=== PATIENT | female | born 1960 | race African-American/Black ===

== ENCOUNTER 2018-08-10 10:41 | Emergency (ER) | payer OTHER, SELFPAY ==
[2018-08-10 11:29] LABS: Bilirubin Negative (Negative); Blood, Urine Negative (Negative); Clarity CLEAR (Clear); Glucose, Urine (Dipstick) Negative (Negative); Leukocyte Moderate (Negative); Nitrite Negative (Negative); Protein, Urine (Dipstick) Negative (Neg-Trace); Specific Gravity, Urine 1.023 (1.002-1.036)
[2018-08-10 11:36] LABS: Bacteria/HPF Rare-Few HPF (None Seen); Hyaline Casts/LPF 0-3 HYALINE CAST LPF (0-3 Hyaline); Pathc Cast-AUWi Flag 0.29 (0-2.49); WBC/HPF 0-3 HPF (0-3)
[2018-08-10] MEDS ORDERED: cefTRIAXone\\ROCEPHIN 250 MG VIAL ONE (14:21)
[2018-08-10] MEDS ORDERED: Lidocaine 1% (PF) 30 ML VIAL ONE (14:21)
[2018-08-10] MEDS ORDERED: Azithromycin 250 MG TAB ONE (14:21)
[2018-08-10] MEDS ORDERED: Ketorolac Tromethamine 60 MG/2 ML VIAL ONE (14:21)
[2018-08-10] MEDS ORDERED: HYDROcodone/Acetaminophen 5/325 mg Tablet ONE (15:00)
[2018-08-12 23:17] LABS: Chlamydia by PCR Not Detected (NotDetected); GC by PCR Not Detected (NotDetected)
== END 2018-08-10 14:50 | disposition home or self-care (01) ==
LOC: ERS 10:41
DX: N73.9 Female pelvic inflammatory disease, unspecified (principal); I11.0 Hypertensive heart disease with heart failure; I50.9 Heart failure, unspecified; F17.210 Nicotine dependence, cigarettes, uncomplicated
CPT/HCPCS: 81003; 81015; 87480; 87491; 87510; 87591; 87660; 96372; J0696; J1885; J2001

== ENCOUNTER 2018-09-06 12:35 | Observation (INO) | payer OTHER, SELFPAY ==
--- NOTE | 2018-09-06 13:05 | RAD ---
PORTABLE CHEST: HISTORY: Chest pain. COMPARISON: 01/14/2017 study. FINDINGS: Heart size is within normal limits. There are postop sternotomy changes. The lungs are clear of inf iltrates. IMPRESSION: No active intrathoracic disease. POS: [facility]
[2018-09-06] MEDS ORDERED: metroNIDAZOLE 250 MG TAB ONE ×2 (13:15→13:21)
[2018-09-06 13:21] LABS: #Eosinphils 0.4 thou/uL (0.0-0.7); #Lymphocytes 1.7 thou/uL (1.20-3.40); #Monocytes 0.5 thou/uL (0.11-0.59); #Neutrophils 2.8 thou/uL (1.40-6.50); %Basophils 0.9 % (0.0-1.0); %Eosinophils 7.8 % (0.0-10.0); %Lymphocytes 30.5 % (21.0-51.0); %Monocytes 8.9 % (0.0-10.0); %Neutrophils 51.9 % (42.0-75.0); Hemoglobin 14.2 g/dL (12.0-16.0); Mean Corpuscular HGB CONC 31.7 g/dL (32.0-36.0); Mean Corpuscular Hemoglobin 32.8 pg (27.0-31.0); Mean Platelet Volume 6.5 fL (7.4-10.4); Platelet Count 278 thou/uL (130-400); RBC Distribution Width 12.8 % (11.5-14.5); Red Blood Cell (RBC) Count 4.33 mill/uL (4.20-5.40); White Blood Cell (WBC) Count 5.4 thou/uL (4.8-10.8)
[2018-09-06 13:47] LABS: ALT (SGPT) 51 U/L (8-55); AST (SGOT) 32 U/L (5-34); Albumin 3.5 g/dL (3.5-5.0); Alkaline Phosphatase 98 U/L (40-150); Anion Gap 11 mmol/L (10-20); BUN (Urea Nitrogen) 14 mg/dL (9.8-20.1); Bilirubin, Total 0.2 mg/dL (0.2-1.2); CK (CPK) 76 U/L (29-168); Calc. Creatinine Clearance 0 mL/min (70-130); Calcium 9.5 mg/dL (7.8-10.44); Carbon Dioxide 19 mmol/L (22-29); Chloride 110 mmol/L (98-107); Estimated GFR-MDRD 79; Globulin 3.7 g/dL (2.4-3.5); Glucose 90 mg/dL (70-105); Lipase 62 U/L (8-78); Potassium 4.2 mmol/L (3.5-5.1); Protein, Total 7.2 g/dL (6.0-8.3); Sodium 136 mmol/L (136-145)
[2018-09-06 13:48] LABS: CKMB 1.6 ng/mL (0-6.6); Troponin I Less than 0.010 ng/mL (< 0.028)
[2018-09-06] MEDS ORDERED: Nitroglycerin 2% Ointment 1 INCH/1 GM Packet ONE (14:10)
--- NOTE | 2018-09-06 14:24 | RAD ---
3 VIEWS LEFT FOOT: Date: 09/06/18 HISTORY: Pain. FINDINGS: Lisfranc alignment is maintained and the joint spaces are preserved. There is midfoot soft tissue swe lling. There is a nondisplaced fracture with a horizontal orientation involving the distal aspect of the proximal phalanx of the third digit. No interarticular extension. IMPRESSION: Third digit fracture. POS: [facility]
[2018-09-06] MEDS ORDERED: Nicotine 14 MG PATCH TD PRN (15:11)
[2018-09-06] MEDS ORDERED: Nitroglycerin 0.4 MG TAB (25 Tab Bottle) PO PRN (15:11)
[2018-09-06] MEDS ORDERED: Bisacodyl 5 MG TAB PO PRN (15:11)
[2018-09-06] MEDS ORDERED: Senokot S 8.6-50 MG TAB PO PRN (15:11)
--- NOTE | 2018-09-06 15:11 | PDOC.FPRHP ---
- History of Present Illness Chief Complaint: Chest pain History of Present Illness: 58 yo F with PMH of CHF, HTN, seizures, myasthenia gravis, aneurysm, and cocaine abuse presenting for chest pressure for the last 3-4 days. Patient states the pressure is left sided under left breast, radiating in to left neck. Pain is worse with exertion, associated with SOB, cough. Patient says she has been more active lately cleaning her mother's house. She also reports headache, wt gain, palpitations, BLE edema, and bilateral lower leg pain. Pt states that she has not been taking her medications daily because she is "afraid they will run out, and I have no way to get more." She also states that she has been having syncopal episodes (fell in her flower bed, reports LOC). She also made a comment about her last seizure being 2 days ago, reporting "I had a seizure in my sleep." Pt had recent dx of STD (complains of vaginal discharge) and was unable to get medications. She also complained of Left third toe pain from catching her toe on a door 3 wks ago. In the ED, CXR neg, EKG showed bradycardia, L Ft XR showed 3rd Proximal metatarsal fracture. Received ASA 325, flagyl 2 g, and nitrobid paste. - Allergies/Adverse Reactions Allergies Allergy/AdvReac Type Severity Reaction Status Date / Time acetaminophen [From Percocet] Allergy Intermediate Hives Verified 09/06/18 16:08 meperidine HCl [From Demerol] Allergy Intermediate Hives Verified 05/04/14 15:54 morphine Allergy Intermediate Hives Verified 05/04/14 15:54 oxycodone [From Percocet] Allergy Intermediate Hives Verified 09/06/18 16:08 - Home Medications Medication Instructions Recorded Confirmed Type Hydrochlorothiazide 12.5 mg PO QAM 06/30/13 05/01/16 History Simvastatin [Zocor] 20 mg PO HS 06/30/13 05/01/16 History carBAMazepine 200 mg PO BID 06/30/13 05/01/16 History ALButerol Sulfate [Ventolin Neb] 3 ml NEB Q6HR PRN 08/07/15 05/01/16 History Albuterol Sulfate [Proair HFA] 2 puff INH Q4HR PRN 08/07/15 05/01/16 History Aspirin [Ecotrin Regular Strength] 325 mg PO DAILY 05/01/16 05/01/16 History Nortriptyline HCl [Pamelor] 25 mg PO HS 05/01/16 05/01/16 History traZODone 100 mg PO HS 05/01/16 05/01/16 History Budesonide-Formoterol [Symbicort 2 puff INH BID #0 aer 05/02/16 Rx 160-4.5] Levofloxacin [Levaquin] 500 mg PO DAILY 7 Days tab 05/02/16 Rx Pantoprazole [Protonix] 40 mg PO DAILY #0 tab 05/02/16 Rx predniSONE 20 mg PO QAM-WM 7 Days tab 05/02/16 Rx - History PMHx: CHF, recent STI, myasthenia gravis, unknown seizure disorder, GERD, HTN, aneurysm, double vision in Rt eye, "refluxed kidney," anxiety and depression PSHx: hysterectomy, thymectomy (pt states "thyroidectomy" but has mediastinal scar), FHx: IA in father ( of IA), DM in mother Social: smokes 4-5 cigs/day (used to smoke 1-2 packs), alcohol: mixed drink 1/ month; cocaine (used last 1 wk ago) - Review of Systems General: reports: weight/appetite/sleep changes (wt gain). denies: fever/chills Eyes: reports: other (double vision in rt eye) ENT: denies: nasal congestion, rhinorrhea Respiratory: reports: cough, shortness of breath, exercise intolerance. denies : congestion Cardiovascular: reports: chest pain, palpitation, edema, paroxysmal nocturnal dyspnea Gastrointestinal: reports: constipation, abdominal pain. denies: nausea, vomiting, diarrhea Genitourinary: reports: discharge. denies: dysuria Skin: denies: rashes Neurological: reports: syncope, seizure, weakness. denies: numbness Psychological: reports: anxiety, depression - Vital signs BP: [136/73] HR: [64] RR: [24] Tmax: [97.5] Pox: [100]% on [RA] Wt: [98 kg] - Physical Exam Constitutional: NAD, awake, alert and oriented HEENT: normocephalic and atraumatic, PERRLA, EOMI, grossly normal hearing, MMM, oropharynx clear Neck: supple, no LAD Chest: other (diffusely TTP) Heart: RRR, normal S1/S2, no murmurs/rubs/gallops, pulses present, other ( minimal edema bilat) Lungs: no respiratory distress, good air movement, no wheezing Abdomen: soft, bowel sounds present, other (protuberant abdomen, diffusely TTP but no rebound or guarding) Musculoskeletal: normal structure, normal tone Skin: no rash/lesions, good turgor Heme/Lymphatic: no unusual bruising or bleeding Psychiatric: normal mood and affect, intact recent and remote memory, other ( Poor judgmend and insight) FMR H&P: Results - Labs Result Diagrams: 09/06/18 13:10 09/06/18 13:10 Lab results: WBC 5.4 thou/uL (4.8-10.8) 09/06/18 13:10 Hgb 14.2 g/dL (12.0-16.0) 09/06/18 13:10 Hct 44.8 % (36.0-47.0) 09/06/18 13:10 MCV 103.0 fL (78.0-98.0) H 09/06/18 13:10 Plt Count 278 thou/uL (130-400) 09/06/18 13:10 Neutrophils % 51.9 % (42.0-75.0) 09/06/18 13:10 Sodium 136 mmol/L (136-145) 09/06/18 13:10 Potassium 4.2 mmol/L (3.5-5.1) 09/06/18 13:10 Chloride 110 mmol/L (98-107) H 09/06/18 13:10 Carbon Dioxide 19 mmol/L (22-29) L 09/06/18 13:10 BUN 14 mg/dL (9.8-20.1) 09/06/18 13:10 Creatinine 0.89 mg/dL (0.6-1.1) 09/06/18 13:10 Glucose 90 mg/dL (70-105) 09/06/18 13:10 Calcium 9.5 mg/dL (7.8-10.44) 09/06/18 13:10 Total Bilirubin 0.2 mg/dL (0.2-1.2) 09/06/18 13:10 AST 32 U/L (5-34) 09/06/18 13:10 ALT 51 U/L (8-55) 09/06/18 13:10 Alkaline Phosphatase 98 U/L (40-150) 09/06/18 13:10 Creatine Kinase 76 U/L (29-168) 09/06/18 13:10 CK-MB (CK-2) 1.6 ng/mL (0-6.6) 09/06/18 13:10 B-Natriuretic Peptide Less than 10.0 pg/mL (0-100) 09/06/18 13:10 Serum Total Protein 7.2 g/dL (6.0-8.3) 09/06/18 13:10 Albumin 3.5 g/dL (3.5-5.0) 09/06/18 13:10 Lipase 62 U/L (8-78) 09/06/18 13:10 - EKG Interpretation EKG: Sinus kym FMR H&P: A/P - Problem List (1) Chest pain Current Visit: No Status: Acute Code(s): R07.9 - CHEST PAIN, UNSPECIFIED (2) Cocaine abuse Current Visit: No Status: Chronic Code(s): F14.10 - COCAINE ABUSE, UNCOMPLICATED (3) CHF (congestive heart failure) Current Visit: Yes Status: Chronic Code(s): I50.9 - HEART FAILURE, UNSPECIFIED (4) Myasthenia gravis Current Visit: Yes Status: Chronic Code(s): G70.00 - MYASTHENIA GRAVIS WITHOUT (ACUTE) EXACERBATION (5) Seizure disorder Current Visit: Yes Status: Chronic Code(s): G40.909 - EPILEPSY, UNSP, NOT INTRACTABLE, WITHOUT STATUS EPILEPTICUS (6) GERD (gastroesophageal reflux disease) Current Visit: Yes Status: Chronic Code(s): K21.9 - GASTRO-ESOPHAGEAL REFLUX DISEASE WITHOUT ESOPHAGITIS (7) HTN (hypertension) Current Visit: Yes Status: Chronic Code(s): I10 - ESSENTIAL (PRIMARY) HYPERTENSION (8) Anxiety Current Visit: Yes Status: Chronic Code(s): F41.9 - ANXIETY DISORDER, UNSPECIFIED (9) Depression Current Visit: Yes Status: Chronic Code(s): F32.9 - MAJOR DEPRESSIVE DISORDER, SINGLE EPISODE, UNSPECIFIED - Plan 58 yo F presents with atypical chest pain. Atypical chest pain, most likely 2/2 to cocaine abuse vs costochondritis vs CHF exacerbation vs anxiety -Pt has significant TTP of chest; last used cocaine 1 wk ago; reports increasing SOB on exertion and cough but lungs CTA on exam -Most likely not PE as O2 Sat 100% on RA -CXR neg, EKG shows bradycardia -Trop negx1, CKMB wnl -Stress test in AM, NPO @ midnight -Restart home medications -ASA, nitrostat PRN History of Sycope/fall with LOC -headache today -Ct Brain w/o contrast pending -double vision that is not new Concern for hypothyroidism -Pt reports weight gain and palpitations, TSH pending Multi drug abuse -UDS pending -PRN nicotine patch Hepatitis B -not treated, dx at [facility] w/ known and prior elevated LFTs Seizures -restart home carbemazepine Anxiety/depression -restart sertraline Constipation -Senna/doc PRN Toe Fracture, 3 wks ago -Recommend israel taping/hard soled shoe Myasthenia Gravis -s/p thymectomy Ureteral reflux -left sided, fixed by Dr. Castellanos years ago DVT ppx: lovenox Diet: HH, NPO @ midnight Dispo: tomorrow if Stress test is WNL FMR H&P: Upper Level - Pertinent history 58 y/o F with a hx/o cocaine abuse and possible CHF presents with chest pain. Started 4d ago and has been off and on. She was working in the garden and has been sore since then. She also states she passed out working in the garden 4 days ago. History is very unclear. Sharp L sided chest pain that has now resolved in the ED. 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 The ED gave her 2g of Flagyl. She currently denies complaints in the ED bed. Did have a stress test 4yrs ago that was normal and a normal ECHO in 2015 - Pertinent findings LABS: Tropinis and CKMB WNL EKG: Sinus bradycaria at 56bpm UDS: pending - Plan Date/Time: 09/06/18 1511 Andrew Maravilla, have evaluated this patient and agree with findings/plan as outlined by sports intern resident. Pertinent changes/additions are listed here. 1: Atypical Chest pain: Likely MSK in origin as it is reproducible and started after working in the garden. Cardiac enzymes have been negative and will trend. She does have a heart score of 3-4 and will stress test her in the AM as she has not had one in 4 yrs. She admitted to cocaine use, which could also be the cause. 2: L 3rd toe fracture: Confirmed with XR. Will encourage supportive shoes/ protection and israel taping PRN. 3: Possible recent history of syncope: Does have sinus bradycardia on EKG, but also has admitted to using recreational drugs. She may have hit her head which is atraumatic on exam, but will obtain head CT. Will continue to monitor. 4: Trichomoniasis: Treated with Flagyl in ED 5: CHF Reported in history, however an ECHO in 2015 reveals normal heart function. Will consider ECHO during this hospital stay or outpatient. 6: Anxiety/Depression Continue SSRI 7. Seizure history: Continue carbamazapine Attending Addendum - Attending Addendum Date/Time: 09/06/18 5221 I personally evaluated the patient and discussed the management with Dr. Blue I agree with the History, Examination, Assessment and Plan documented above with any addition or exceptions noted below. 58 yo female with PMHX: Myasthenia gravis , SZ D/O Hepatitis B, dyslipidemia, HTN , Tobacco and cocaine use with recent history of activity related substernal CP with radiation to neck with associated shortness of breath no N/V or diaphoresis. Patient describes episode of questionable syncopal spell verse generalized seizure x 1 week ago. Patient has been reducing frequency of her medication in attempt to make them last longer. Prior surgery include Thymectomy, cholecystectomy and left ureteral reflux surgery per patient. Social HX single with current significant other patient with 4 grown male children and recent 2 year incarceration at [facility] patient currenty living with her cousin and attempting to assist her Mother who is a hoarder and helping cleaning up her home. REC admit serial troponin risk factors include HTN ,Tobacco use, dyslipidemia and recent cocaine abuse. Stratify further with stress testing if r/o for ACS.
[2018-09-06] MEDS ORDERED: Enoxaparin Sodium 40 MG/0.4 ML SYRINGE SC SCH (15:45)
--- NOTE | 2018-09-06 15:49 | CT ---
CT BRAIN: HISTORY: Syncope. Fall. Loss of consciousness. FINDINGS: Noncontrast-enhanced CT images of the brain are obtained on 09/06/2018. Comparison is made to previo us exam from 11/29/2015. Noncontrast-enhanced CT images of the brain demonstrate the calvarium to be unremarkable. No evidenc e of intracranial masses, hemorrhages, strokes, or contusions seen. Ventricles are of normal size. No evidence of acute intracranial pathology noted. IMPRESSION: Normal CT brain. POS: [facility]
[2018-09-06 16:41] LABS: Troponin I Less than 0.010 ng/mL (< 0.028)
[2018-09-06 16:42] LABS: Carbamazepine-Tegretol Less than 1.9 ug/mL (4.0-12.0)
[2018-09-06 17:22] LABS: Free T4 (Free Thyroxine) 0.93 ng/dL (0.70-1.48)
[2018-09-06 18:31] VITALS: BMI 40.3
[2018-09-06] MEDS ORDERED: carBAMazepine 200 MG TAB PO SCH (21:30)
[2018-09-06] MEDS: Naproxen 500 MG TAB PO SCH (21:41)
[2018-09-06 21:42] LABS: Amphetamine Not Detected (NotDetected); Barbiturates Screen Not Detected (NotDetected); Benzodiazepine Screen Not Detected (NotDetected); Cocaine Metabolite Screen Detected (NotDetected); Medtox Reader # READER 1; Methadone Not Detected (NotDetected); Methamphetamine Not Detected (NotDetected); Opiate Screen Not Detected (NotDetected); Oxycodone Screen Not Detected (NotDetected); Phencyclidine (PCP) Not Detected (NotDetected); THC/Cannabinoid Screen Not Detected (NotDetected); Tricyclic Screen Not Detected (NotDetected)
[2018-09-06 21:43] LABS: Medtox Control Line Valid? VALID (VALID)
[2018-09-07] MEDS: Naproxen 500 MG TAB PO SCH ×2 (05:55→13:26)
--- NOTE | 2018-09-07 06:32 | PDOC.FM ---
- Subjective Subjective: Pt complains of lower abdominal pain, like cramping "period pains," but pt is s/ p hysterectomy. Pt states she does have dysuria. Some toe pain from fracture, received naproxen overnight. - Objective Vital Signs & Weight: Vital Signs (12 hours) Temp Pulse Resp BP BP Pulse Ox 09/07/18 04:40 98.2 F 62 16 133/69 95 09/06/18 23:18 98.9 F 64 16 111/55 L 90 L Weight Weight 113.353 kg I&O: 09/05/18 09/06/18 09/07/18 06:59 06:59 06:59 Intake Total 600 Output Total 800 Balance -200 Result Diagrams: 09/06/18 13:10 09/06/18 13:10 Phys Exam - Physical Examination Constitutional: NAD Neck: no nodes, no JVD Respiratory: no wheezing, clear to auscultation bilateral Cardiovascular: RRR, no significant murmur Gastrointestinal: soft, positive bowel sounds mod TTP diffusely Musculoskeletal: no edema, pulses present Neurological: moves all 4 limbs Psychiatric: normal affect Dx/Plan (1) Chest pain Code(s): R07.9 - CHEST PAIN, UNSPECIFIED Status: Acute (2) Cocaine abuse Code(s): F14.10 - COCAINE ABUSE, UNCOMPLICATED Status: Chronic (3) CHF (congestive heart failure) Code(s): I50.9 - HEART FAILURE, UNSPECIFIED Status: Chronic (4) Myasthenia gravis Code(s): G70.00 - MYASTHENIA GRAVIS WITHOUT (ACUTE) EXACERBATION Status: Chronic (5) Seizure disorder Code(s): G40.909 - EPILEPSY, UNSP, NOT INTRACTABLE, WITHOUT STATUS EPILEPTICUS Status: Chronic (6) GERD (gastroesophageal reflux disease) Code(s): K21.9 - GASTRO-ESOPHAGEAL REFLUX DISEASE WITHOUT ESOPHAGITIS Status: Chronic (7) HTN (hypertension) Code(s): I10 - ESSENTIAL (PRIMARY) HYPERTENSION Status: Chronic (8) Anxiety Code(s): F41.9 - ANXIETY DISORDER, UNSPECIFIED Status: Chronic (9) Depression Code(s): F32.9 - MAJOR DEPRESSIVE DISORDER, SINGLE EPISODE, UNSPECIFIED Status : Chronic - Plan Plan: 58 yo F presents with atypical chest pain. Atypical chest pain, most likely 2/2 to cocaine abuse vs costochondritis vs CHF exacerbation vs anxiety -Pt has significant TTP of chest; last used cocaine 1 wk ago; reports increasing SOB on exertion and cough but lungs CTA on exam -Most likely not PE as O2 Sat 100% on RA -CXR neg, EKG shows bradycardia -Trop neg x3, CKMB wnl -Stress test today (NPO @ midnight) -Restart home medications -ASA, nitrostat PRN -FLP done, 10 yr risk 8.7%, will start high-intensity statin Dysuria -Will check UA Peaked T waves -Stat EKG pending, will compare to yesterdays -K 4.2 yesterday History of Sycope/fall with LOC -headache today -Ct Brain neg -double vision that is not new Concern for hypothyroidism -Pt reports weight gain and palpitations - TSH low - T3 and T4 wnl Multi drug abuse -UDS + cocaine -PRN nicotine patch Hepatitis B -not treated, dx at [facility] w/ known and prior elevated LFTs Seizures -restart home carbemazepine Anxiety/depression -restart sertraline Constipation -Senna/doc PRN Toe Fracture, 3 wks ago -Recommend israel taping/hard soled shoe Myasthenia Gravis -s/p thymectomy Ureteral reflux -left sided, fixed by Dr. Castellanos years ago DVT ppx: lovenox Diet: HH, NPO @ midnight Dispo: today if Stress test is WNL
[2018-09-07 07:22] LABS: Cardiac Risk 2.8 (Less than 4.5)
[2018-09-07 08:31] VITALS: TEMP 98.3
[2018-09-07] MEDS ORDERED: Potassium Chloride 20 MEQ TAB PO SCH (08:45)
[2018-09-07] MEDS ORDERED: Aspirin 325 MG TAB PO SCH (09:00)
[2018-09-07] MEDS ORDERED: Enoxaparin Sodium 40 MG/0.4 ML SYRINGE SC SCH (09:00)
[2018-09-07] MEDS ORDERED: Hydrochlorothiazide 25 MG TAB PO SCH (09:00)
[2018-09-07] MEDS ORDERED: Multivitamin W/ Minerals 1 TAB PO SCH (09:00)
[2018-09-07] MEDS ORDERED: Regadenoson 0.4 MG/5 ML SYRINGE ONE (11:25)
--- NOTE | 2018-09-07 11:38 | PRG ---
DATE OF SERVICE: 09/07/2018 Ms. Schroeder is a pleasant 58-year-old black female patient with a history of heart failure. She was admitted with some atypical chest pain and is currently undergoing a stress Myoview. She is currentl y not having any chest discomfort. Her admission troponins have been less than 0.01. Her cholesterol was 143, LDL is 77, HDL of 51. BU N is 14, creatinine 0.89 and glucose is 79. We will await the results of her stress Myoview exam. I f positive, we will consult Cardiology for catheterization. If negative, she will be discharged.
[2018-09-07 11:47] LABS: Bilirubin Negative (Negative); Blood, Urine Negative (Negative); Clarity TURBID (Clear); Glucose, Urine (Dipstick) Negative (Negative); Leukocyte Trace (Negative); Nitrite Negative (Negative); Protein, Urine (Dipstick) Negative (Neg-Trace); Specific Gravity, Urine 1.016 (1.002-1.036)
[2018-09-07 11:49] LABS: Bacteria/HPF 2+ HPF (None Seen); Hyaline Casts/LPF 0-3 HYALINE CAST LPF (0-3 Hyaline); Pathc Cast-AUWi Flag 0.87 (0-2.49); RBC/HPF 0-3 HPF (0-3); Squamous Epithelial 21-50 HPF (0-3); Yeast-AUWi Flag 19.7 (0-25.0)
[2018-09-07 12:03] VITALS: BP 147/72
--- NOTE | 2018-09-07 12:21 | NM ---
MYOCARDIAL PERFUSION SCAN: 09/07/2018 PROVIDED CLINICAL HISTORY: Chest pain. RADIOPHARMACEUTICAL: Technetium 99m labeled sestamibi, 32 millicuries, IV stress. Technetium 99m labeled sestamibi, 10.7 millicuries, IV rest. FINDINGS: There is a small area of mildly diminished radiotracer accumulation at the anteroseptum, present at b oth stress and rest. Gated data demonstrate normal myocardial wall motion and thickening with a calc ulated LVEF of 72%. TID is 0.92. IMPRESSION: 1. No scintigraphic evidence for ischemia. 2. Preserved left ventricular ejection fraction. POS: [facility]
[2018-09-07] MEDS ORDERED: Atorvastatin Calcium 40 MG TAB PO SCH (21:00)
--- NOTE | 2018-09-08 02:24 | DIS-2 ---
DATE OF ADMISSION: 09/06/2018 DATE OF DISCHARGE: 09/07/2018 RESIDENT: Munira Adler MD ADMITTING ATTENDING: Nitin Juarez MD DISCHARGE ATTENDING: Wilbert Lopez MD CONSULTS: None. PROCEDURES: 1. Chest x-ray on 09/06/2018, negative. 2. Foot x-ray on 09/06/2018, fracture of the third proximal metatarsal of left foot. 3. Brain CT on 09/06/2018 within normal limits. 4. Stress test on 09/07/2018: Impression: Preserved left ventricular ejection fraction, no scintigraphic evidence for ischemia. PRIMARY DIAGNOSIS: Atypical chest pain most likely secondary to costochondritis versus cocaine abuse. SECONDARY DIAGNOSES: 1. Multidrug abuse. 2. Hepatitis B. 3. Seizures. 4. Anxiety and depression. 5. Constipation. 6. Proximal left third metatarsal fracture. 7. Myasthenia gravis. 8. Ureteral reflux 9. Congestive heart failure. 10. Trichomonal STD. DISCHARGE MEDICATIONS: 1. Atorvastatin 40 mg p.o. at bedtime. 2. Multivitamin 1 tab p.o. daily. 3. Naproxen 250 mg p.o. q.8 hours for pain. 4. Aspirin 81 mg p.o. daily. 5. Carbamazepine 200 mg p.o. b.i.d. 6. Hydrochlorothiazide 25 mg p.o. every morning. 7. Sertraline 50 mg p.o. at bedtime. DISCONTINUED MEDICATIONS: None. HISTORY OF PRESENT ILLNESS AND HOSPITAL COURSE: A 58-year-old female with past medical history of congestive heart failure, hypertension, seizures, myasthenia gravis, aneurysm, and cocaine abuse, presenting for chest pressure for the past 3-4 days. The patient stated the pressure was left-sided under her left breast , radiated into her left neck. Her pain is worse with exertion, associated with shortness of breath and cough. The patient stated that she had been more actively cleaning her mother's home. She also reported headache, weight gain, palpitations, bilateral lower extremity edema, bilateral lower leg pain. The patient stated she had not been taking her medications daily because she was afraid that they would run out. The patient stated that she had have a syncopal episode and fell into her flower bed, reporting loss of consciousness. Her last seizure she reported as two days prior and stated that her seizure was in her sleep. The patient had a recent diagnosis of STD (trichomonas) and was unable to get medications. She also complained of foot pain in her left third toe and catching her toe on a door edge 3 weeks ago. In the ED, the chest x- ray was negative. EKG showed bradycardia. Left foot x-ray showed a third proximal metatarsal fracture. Patient received aspirin, 2 grams of Flagyl and Nitro-Bid paste for chest pain. Chest x-ray and EKG were within normal limits other than her bradycardia. Troponins were negative x3. CK-MB was normal. A stress test was normal. The patient was started on aspirin and a high-intensity statin. The patient complained of dysuria. UA was negative. Patient has a history of syncope with fall and loss of consciousness. CT of brain was negative. Concern for hyperthyroidism. Patient reported weight gain and palpitations. TSH was low. T3 and T4 were within normal limits. We recommend outpatient workup for hyperthyroidism. The patient may need outpatient blood testing for thyroid antibodies. Multidrug abuse: The patient's UDS is positive for cocaine. The patient reported using 5-6 cigarettes per day. The patient has history of hepatitis C that was not treated. The patient was diagnosed at [facility] with known prior elevated LFTs. Patient needs evaluation for outpatient treatment. For seizures, the patient was restarted on her home carbamazepine. Blood Tegretol level showed that the patient was not at goal. The patient reports infrequently taking the carbamazepine. Her toe fracture that happened 3 weeks ago. We recommend israel taping her toes or using hard-soled shoe. DISPOSITION: Stable. DISCHARGE INSTRUCTIONS: 1. Location: Home. 2. Diet: Heart healthy. 3. Activity: As tolerated. 4. Followup: Follow up with PCP within 7 days. The patient was given information to follow up with [facility] to establish care. BENEDICTO
--- NOTE | 2018-09-08 14:11 | EKG ---
Test Reason : CHEST DISCOMFORT Blood Pressure : / mmHG Vent. Rate : 056 BPM Atrial Rate : 056 BPM P-R Int : 166 ms QRS Dur : 096 ms QT Int : 414 ms P-R-T Axes : 055 -08 029 degrees QTc Int : 399 ms Sinus bradycardia Moderate voltage criteria for LVH, may be normal variant Borderline ECG Confirmed by HILARIA MENDEZ DO ([id number]), acquisitions editor KALIA DOMINGO ([id number] on 09/08/2018 2:10:36 PM Referred By: Confirmed By:HILARIA MENDEZ DO
== END 2018-09-07 16:56 | disposition home or self-care (01) ==
LOC: ERS 12:35 → 2SW 14:05
PROVIDERS: ADMIT Family Medicine; ATTEND Family Medicine
DX: R07.89 Other chest pain (principal); I11.0 Hypertensive heart disease with heart failure; I50.9 Heart failure, unspecified; G70.00 Myasthenia gravis without (acute) exacerbation; G40.909 Epilepsy, unspecified, not intractable, without status epilepticus; F41.8 Other specified anxiety disorders; F17.210 Nicotine dependence, cigarettes, uncomplicated; F14.10 Cocaine abuse, uncomplicated; K21.9 Gastro-esophageal reflux disease without esophagitis; R55 Syncope and collapse; B19.10 Unspecified viral hepatitis B without hepatic coma; A59.9 Trichomoniasis, unspecified; S92.592A Other fracture of left lesser toe(s), initial encounter for closed fracture; K59.00 Constipation, unspecified; N13.70 Vesicoureteral-reflux, unspecified; Z79.52 Long term (current) use of systemic steroids; Z79.51 Long term (current) use of inhaled steroids; Z79.82 Long term (current) use of aspirin; Z79.899 Other long term (current) drug therapy; Z88.5 Allergy status to narcotic agent; Z88.8 Allergy status to other drugs, medicaments and biological substances; W22.8XXA Striking against or struck by other objects, initial encounter
CPT/HCPCS: 36415; 70450; 71045; 78452; 80053; 80061; 80156; 80306; 81003; 81015; 82553; 83690; 83880; 84439; 84443; 84481; 84484; 85025; 93005; 93017; 96372; A9500; G0378; J1650; J2785

== ENCOUNTER 2019-09-02 12:21 | Emergency (ER) | payer OTHER ==
[2019-09-02] MEDS ORDERED: Ondansetron ODT 8 MG TAB ONE (12:51)
[2019-09-02 13:13] LABS: #Eosinphils 0.2 thou/uL (0.0-0.7); #Lymphocytes 1.9 thou/uL (1.20-3.40); #Monocytes 0.5 thou/uL (0.11-0.59); #Neutrophils 2.4 thou/uL (1.40-6.50); %Basophils 0.9 % (0.0-1.0); %Eosinophils 4.1 % (0.0-10.0); %Lymphocytes 37.3 % (21.0-51.0); %Monocytes 10.2 % (0.0-10.0); %Neutrophils 47.6 % (42.0-75.0); Hemoglobin 14.4 g/dL (12.0-16.0); Mean Corpuscular HGB CONC 32.9 g/dL (32.0-36.0); Mean Platelet Volume 6.6 fL (7.4-10.4); Platelet Count 272 thou/uL (130-400); RBC Distribution Width 12.5 % (11.5-14.5); Red Blood Cell (RBC) Count 4.25 mill/uL (4.20-5.40)
[2019-09-02 13:20] LABS: PTT 25.8 SEC (22.9-36.1); Prothrombin Time 13.6 SEC (12.0-14.7)
[2019-09-02 13:35] LABS: ALT (SGPT) 82 U/L (8-55); AST (SGOT) 49 U/L (5-34); Albumin 3.5 g/dL (3.5-5.0); Alkaline Phosphatase 110 U/L (40-110); Anion Gap 10 mmol/L (10-20); BUN (Urea Nitrogen) 10 mg/dL (9.8-20.1); Bilirubin, Total 0.4 mg/dL (0.2-1.2); Calc. Creatinine Clearance 0 mL/min (70-130); Calcium 8.9 mg/dL (7.8-10.44); Carbon Dioxide 27 mmol/L (22-29); Chloride 106 mmol/L (98-107); Estimated GFR-MDRD 89; Globulin 3.9 g/dL (2.4-3.5); Glucose 109 mg/dL (70-105); Potassium 3.8 mmol/L (3.5-5.1); Protein, Total 7.4 g/dL (6.0-8.3); Sodium 139 mmol/L (136-145)
== END 2019-09-02 13:54 | disposition home or self-care (01) ==
LOC: ERS 12:21
DX: R11.2 Nausea with vomiting, unspecified (principal); R10.9 Unspecified abdominal pain; Z86.73 Personal history of transient ischemic attack (TIA), and cerebral infarction without residual deficits; K21.9 Gastro-esophageal reflux disease without esophagitis; I11.0 Hypertensive heart disease with heart failure; I50.9 Heart failure, unspecified; F41.9 Anxiety disorder, unspecified; F32.9 Major depressive disorder, single episode, unspecified; F17.210 Nicotine dependence, cigarettes, uncomplicated
CPT/HCPCS: 36415; 80053; 85025; 85610; 85730; 93005

== ENCOUNTER 2020-03-02 16:47 | Emergency (ER) | payer OTHER ==
[~2020-03-02 16:47] MED LIST: Iopamidol-370 76% 500 ML 1 ML ONE
[2020-03-02 17:34] LABS: #Eosinphils 0.2 thou/uL (0.0-0.7); #Lymphocytes 2.2 thou/uL (1.20-3.40); #Monocytes 0.4 thou/uL (0.11-0.59); #Neutrophils 2.5 thou/uL (1.40-6.50); %Basophils 0.4 % (0.0-1.0); %Eosinophils 4.4 % (0.0-10.0); %Lymphocytes 41.1 % (21.0-51.0); %Monocytes 7.5 % (0.0-10.0); %Neutrophils 46.6 % (42.0-75.0); Mean Corpuscular HGB CONC 33.4 g/dL (32.0-36.0); Mean Corpuscular Hemoglobin 34.5 pg (27.0-31.0); Platelet Count 270 thou/uL (130-400); RBC Distribution Width 12.8 % (11.5-14.5); Red Blood Cell (RBC) Count 4.07 mill/uL (4.20-5.40); White Blood Cell (WBC) Count 5.3 thou/uL (4.8-10.8)
--- NOTE | 2020-03-02 17:40 | RAD ---
FRONTAL RADIOGRAPH CHEST: 03/02/20 COMPARISON: 09/06/18. HISTORY: Heart fluttering, syncope, abdominal pain. FINDINGS: Stable midline sternotomy wires and mediastinal clips. Stable mild increased linear interstitial dens ity. No pneumothorax, pleural fluid, focal consolidation, or alveolar edema. IMPRESSION: Stable appearance of the chest - no focal consolidation or alveolar edema. POS: [facility]
[2020-03-02 17:53] LABS: Bilirubin Negative (Negative); Blood, Urine Negative (Negative); Clarity Clear (Clear); Glucose, Urine (Dipstick) Normal (Negative); Leukocyte Negative Leu/uL (Negative); Nitrite Negative (Negative); Protein, Urine (Dipstick) Negative (Neg-Trace); Urobilinogen 3 mg/dL (Less than 2)
[2020-03-02 18:37] LABS: Albumin 3.1 g/dL (3.5-5.0)
[2020-03-02 18:39] LABS: Chloride 109 mmol/L (98-107); Potassium 4.1 mmol/L (3.5-5.1); Sodium 144 mmol/L (136-145)
[2020-03-02 18:40] LABS: Globulin 3.2 g/dL (2.4-3.5); Glucose 94 mg/dL (70-105); Protein, Total 6.3 g/dL (6.0-8.3)
[2020-03-02 18:41] LABS: Anion Gap 9 mmol/L (10-20); Carbon Dioxide 30 mmol/L (22-29)
[2020-03-02 18:42] LABS: Bilirubin, Total Less than 0.2 mg/dL (0.2-1.2)
[2020-03-02 18:43] LABS: Alkaline Phosphatase 96 U/L (40-110)
[2020-03-02 18:44] LABS: BUN (Urea Nitrogen) 13 mg/dL (9.8-20.1); Calc. Creatinine Clearance 0 mL/min (70-130); Estimated GFR-MDRD Greater than 90
[2020-03-02 18:45] LABS: AST (SGOT) 47 U/L (5-34)
[2020-03-02 18:46] LABS: ALT (SGPT) 71 U/L (8-55); CK (CPK) 65 U/L (29-168)
--- NOTE | 2020-03-02 19:22 | CT ---
CT ABDOMEN AND PELVIS WITH IV CONTRAST: 03/02/20 INDICATIONS: Abdominal pain. FINDINGS: Lung bases clear. Liver, spleen and pancreas unremarkable. Adrenal glands and kidneys unremarkable. Small bowel loops normal. Appendix not identified. Colon unremarkable. No mass or adenopathy. Images through the pelvis show evidence of hysterectomy. Urinary bladder unremarkable. IMPRESSION: No acute process identified. POS: [facility]
== END 2020-03-02 19:35 | disposition left against medical advice (07) ==
LOC: ERS 16:47
DX: R06.02 Shortness of breath (principal); R00.1 Bradycardia, unspecified; R55 Syncope and collapse; I11.0 Hypertensive heart disease with heart failure; I50.9 Heart failure, unspecified; K21.9 Gastro-esophageal reflux disease without esophagitis; J44.9 Chronic obstructive pulmonary disease, unspecified; J45.909 Unspecified asthma, uncomplicated; F41.9 Anxiety disorder, unspecified; F32.9 Major depressive disorder, single episode, unspecified; F17.210 Nicotine dependence, cigarettes, uncomplicated; Z79.899 Other long term (current) drug therapy; Z86.73 Personal history of transient ischemic attack (TIA), and cerebral infarction without residual deficits
CPT/HCPCS: 36415; 71045; 74177; 80053; 81003; 82550; 83880; 84484; 85025; 87081; 87430; 87635; 87804; 93005; U0002

== ENCOUNTER 2020-03-03 11:09 | Inpatient (IN) | payer OTHER ==
[2020-03-03 12:11] LABS: #Eosinphils 0.2 thou/uL (0.0-0.7); #Lymphocytes 1.7 thou/uL (1.20-3.40); #Monocytes 0.3 thou/uL (0.11-0.59); #Neutrophils 2.8 thou/uL (1.40-6.50); %Basophils 0.9 % (0.0-1.0); %Eosinophils 3.9 % (0.0-10.0); %Lymphocytes 32.8 % (21.0-51.0); %Monocytes 6.1 % (0.0-10.0); %Neutrophils 56.4 % (42.0-75.0); Hemoglobin 14.5 g/dL (12.0-16.0); Mean Corpuscular HGB CONC 33.7 g/dL (32.0-36.0); Mean Platelet Volume 6.8 fL (7.4-10.4); Platelet Count 273 thou/uL (130-400); Red Blood Cell (RBC) Count 4.16 mill/uL (4.20-5.40)
[2020-03-03 12:18] LABS: ALT (SGPT) 84 U/L (8-55); AST (SGOT) 60 U/L (5-34); Albumin 3.5 g/dL (3.5-5.0); Alkaline Phosphatase 104 U/L (40-110); Anion Gap 10 mmol/L (10-20); BUN (Urea Nitrogen) 12 mg/dL (9.8-20.1); Bilirubin, Total 0.2 mg/dL (0.2-1.2); Calc. Creatinine Clearance 0 mL/min (70-130); Carbon Dioxide 29 mmol/L (22-29); Chloride 109 mmol/L (98-107); Estimated GFR-MDRD Greater than 90; Globulin 3.3 g/dL (2.4-3.5); Glucose 110 mg/dL (70-105); Potassium 4.6 mmol/L (3.5-5.1); Protein, Total 6.8 g/dL (6.0-8.3); Sodium 143 mmol/L (136-145)
--- NOTE | 2020-03-03 12:34 | RAD ---
FRONTAL RADIOGRAPH CHEST: 03/03/2020 HISTORY: Bradycardia. Syncope. COMPARISON: 03/02/2020 FINDINGS: Midline sternotomy wires and mediastinal clips are stable. Stable heart and mediastinal contours. No pneumothorax or pleural fluid. No focal consolidation or alveolar edema. Stable mild pulmonary hyperi nflation with mild increased linear interstitial density. IMPRESSION: Stable appearance of the chest. No acute findings. POS: [facility]
--- NOTE | 2020-03-03 13:08 | PDOC.FPRHP ---
- History of Present Illness Chief Complaint: Syncope History of Present Illness: Pt is a 59yo F with PMH of HTN, Substance abuse, tobacco use presents for recurrent syncope from home. Seen in Ed 03/02 for syncope x2 and recommended inpatient stay for symptomatic bradycardia, however pt declined and went home AMA. Today again presents with syncope episode x2. She began to feel lightheaded about 4 days ago and has had several syncopal episodes since this time. She reports prior to that only having one syncopal episode 1 year back during intercourse. She also endorses KIM, orthopnea, and now having dyspnea at rest. For the last month or so she has been having palpitations that come and go mostly with anxiety-describing them as panic attacks. She denies chest pain of any sort. She reports previous hx of CHF although I see no prior echo demonstrating this. 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 She also carries a diagnosis of COPD and reports chronic cough for >1 year that is unchanged. She denies fever, rhinorrhea, congestion, recent travel, or ill contacts. She does however endorse RUQ abd pain since a couple days ago that is not associated with food intake. She had a CTabd/pelvis yesterday in ED that was negative. Denies n/v/d, reports some constipation, Last BM yesterday-firm and hard. She does have hx of seizure DO, describing possibly Absence Seizures that mainly happen when she is sleeping. She reports recent episodes do not feel similar at all. Denies recent seizure hx. Of note, when evaluated yesterday, there was some concern for COVID-19 with recent SOB, so she was tested and have not yet resulted. - Allergies/Adverse Reactions Allergies Allergy/AdvReac Type Severity Reaction Status Date / Time meperidine HCl [From Demerol] Allergy Intermediate Hives Verified 03/03/20 17:02 morphine Allergy Intermediate Hives Verified 03/03/20 17:02 oxycodone Allergy Intermediate Hives Verified 03/03/20 17:02 - Home Medications Medication Instructions Recorded Confirmed Type Aspirin [Aspir-Low] 81 mg PO DAILY #14 tablet. 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 PCP: Dr. Pike [facility] - Review of Systems General: denies: fever/chills, weight/appetite/sleep changes, night sweats, fatigue Eyes: denies: vision changes ENT: denies: nasal congestion, rhinorrhea Respiratory: reports: cough, shortness of breath, exercise intolerance. denies : congestion Cardiovascular: reports: palpitation, edema, orthopnea. denies: chest pain, paroxysmal nocturnal dyspnea Gastrointestinal: reports: constipation, abdominal pain. denies: nausea, vomiting, diarrhea, GI bleeding Genitourinary: denies: incontinence, dysuria Skin: denies: rashes, lesions Musculoskeletal: denies: pain, tenderness, stiffness, swelling Neurological: denies: numbness, syncope, seizure, weakness Psychological: reports: anxiety. denies: depression - Vital signs BP: 137/76 HR: 61 (goes down into the 30's at the lowest in the room on the tele monitor) RR: 18 Tmax: 98.1 Pox: 98% on RA Wt: 107 kg - Physical Exam Constitutional: NAD, awake, alert and oriented, well developed HEENT: normocephalic and atraumatic, PERRLA, EOMI, grossly normal hearing, MMM Neck: no LAD, no bruits Chest: no-tender to palpation, no lesions -Heart: Difficult to hear d/t significant wheezing, bradycardic, no appreciable murmurs heard. Lungs: no respiratory distress, good air movement -Lungs: Wheezing throughout, mostly at b/l lower lung cramer. Less appreciable than anterior auscultation. Abdomen: soft, bowel sounds present, no masses/distention, no hernias -Abdomen: Some ttp along RUQ, negative murphys, no rebound or guarding Musculoskeletal: normal structure, normal tone Neurological: no focal deficit, normal sensation Skin: no rash/lesions, capillary refill <2 seconds Heme/Lymphatic: no unusual bruising or bleeding Psychiatric: normal mood and affect FMR H&P: Results - Labs Result Diagrams: 03/03/20 11:34 03/03/20 11:34 Lab results: WBC 5.0 thou/uL (4.8-10.8) 03/03/20 11:34 Hgb 14.5 g/dL (12.0-16.0) 03/03/20 11:34 Hct 43.2 % (36.0-47.0) 03/03/20 11:34 MCV 104.0 fL (78.0-98.0) H 03/03/20 11:34 Plt Count 273 thou/uL (130-400) 03/03/20 11:34 Neutrophils % 56.4 % (42.0-75.0) 03/03/20 11:34 Sodium 143 mmol/L (136-145) 03/03/20 11:34 Potassium 4.6 mmol/L (3.5-5.1) 03/03/20 11:34 Chloride 109 mmol/L (98-107) H 03/03/20 11:34 Carbon Dioxide 29 mmol/L (22-29) 03/03/20 11:34 BUN 12 mg/dL (9.8-20.1) 03/03/20 11:34 Creatinine 0.79 mg/dL (0.6-1.1) 03/03/20 11:34 Glucose 110 mg/dL (70-105) H 03/03/20 11:34 Calcium 9.0 mg/dL (7.8-10.44) 03/03/20 11:34 Total Bilirubin 0.2 mg/dL (0.2-1.2) 03/03/20 11:34 AST 60 U/L (5-34) H 03/03/20 11:34 ALT 84 U/L (8-55) H 03/03/20 11:34 Alkaline Phosphatase 104 U/L (40-110) 03/03/20 11:34 Serum Total Protein 6.8 g/dL (6.0-8.3) 03/03/20 11:34 Albumin 3.5 g/dL (3.5-5.0) 03/03/20 11:34 - EKG Interpretation EKG: Sinus bradycardia at rate of 54. T wave inversion in lead V2, otherwise no ST changes - Radiology Interpretation CT scan - abdomen Status: image reviewed by me (No acute findings), report reviewed by me FMR H&P: A/P - Problem List (1) Symptomatic bradycardia Current Visit: Yes Status: Acute Code(s): R00.1 - BRADYCARDIA, UNSPECIFIED (2) Syncope Current Visit: Yes Status: Acute Code(s): R55 - SYNCOPE AND COLLAPSE (3) Anxiety Current Visit: No Status: Chronic Code(s): F41.9 - ANXIETY DISORDER, UNSPECIFIED (4) CHF (congestive heart failure) Current Visit: No Status: Chronic Code(s): I50.9 - HEART FAILURE, UNSPECIFIED (5) Cocaine abuse Current Visit: No Status: Chronic Code(s): F14.10 - COCAINE ABUSE, UNCOMPLICATED (6) Depression Current Visit: No Status: Chronic Code(s): F32.9 - MAJOR DEPRESSIVE DISORDER , SINGLE EPISODE, UNSPECIFIED (7) HTN (hypertension) Current Visit: No Status: Chronic Code(s): I10 - ESSENTIAL (PRIMARY) HYPERTENSION (8) Seizure disorder Current Visit: No Status: Chronic Code(s): G40.909 - EPILEPSY, UNSP, NOT INTRACTABLE, WITHOUT STATUS EPILEPTICUS (9) Constipation Current Visit: Yes Status: Acute Code(s): K59.00 - CONSTIPATION, UNSPECIFIED - Plan Syncope Likely 2/2 Symptomatic Bradycardia: -admit to tele -r/o other causes- TSH, Mg, Phos pending -echo pending, last echo here 2014 wnl -EKG with sinus bradycardia, V2 T wave inversion only, hx of KIM progressing to dyspnea at rest, concerning for CAD -initial troponin wnl, trend x3 -consult cardiology, appreciate recs Mild Transaminitis and RUQ Abd Pain: -CTabd yesterday negative -s/p cholecystectomy years ago -RUQ US pending -Hepatitis studies pending Constipation: -Colace scheduled -Dulcolax prn PUI COVID-19: -droplet precautions -COVID pending, swabbed /10 Hx of COPD: -albuterol inhaler prn HTN: -BP at goal at this time. Continue HCTZ and VS q4h. Myasthenia Gravis s/p Thymectomy: -aware Seizure DO: -no recent seizures -continue carbamazepine. Cocaine Abuse: -UDS pending -SDS pending Tobacco Abuse: -nicotine patch prn DVT PPx: Lovenox GI PPx: Famotidine Code sTatus: Full Dispo: Stable, LOS likely > 48h. FMR H&P: Upper Level - Plan Date/Time: 03/03/20 1302 I, [], have evaluated this patient and agree with findings/plan as outlined by internet database specialist resident. Pertinent changes/additions are listed here.
[2020-03-03 15:22] LABS: Troponin I Less than 0.010 ng/mL (< 0.028)
[2020-03-03 16:23] VITALS: BMI 38.4
[2020-03-03] MEDS ORDERED: Nicotine 14 MG PATCH TD PRN (16:30)
[2020-03-03] MEDS ORDERED: Senokot S 8.6-50 MG TAB PO PRN (16:30)
[2020-03-03 16:58] LABS: Alcohol Less than 10 mg/dL (Less than 10); Magnesium 1.8 mg/dL (1.6-2.6); Phosphorus 3.4 mg/dL (2.3-4.7)
[2020-03-03] MEDS ORDERED: PROVENTIL INHALER 6.7 G (200 INHALATIONS) INH PRN (19:16)
[2020-03-03] MEDS ORDERED: Albuterol 200 PUFF (6.7GM INHALER) INH PRN (19:30)
--- NOTE | 2020-03-03 20:03 | CON ---
DATE OF CONSULTATION: HISTORY: Sterling Schroeder is a 59-year-old black female with multiple medical problems, who presented yesterday to the emergency room complaining of 2 episodes of syncope. It was recommended she be admitted for further evaluation. However, she signed out AMA. She now returns again today with 2 more episodes. Of these episodes, in all but one, she was sitting in a chair and apparently just slumped over and was unresponsive for 1 to 2 seconds. Another episode, she stated that her found her on the kitchen floor. She does not remember falling. She denies any chest discomfort. She has chronic cough and shortness of breath from her COPD and it has been elected to have her be a COVID rule out. She has been admitted multiple times for chest discomfort and in May 2015, underwent Cardiolite testing, which was normal. Also in July 2015, she presented with right-sided weakness for which she has had multiple admissions and evaluations in the past. She did receive tPA during that admission. She also has a Rathke's cyst. She has cocaine abuse. PAST MEDICAL HISTORY: Cocaine abuse; history of seizure disorder, on Tegretol In the past, Dr. Samayoa stated that she may have pseudoseizures. History of myasthenia gravis, status post thymectomy, on no medications; hypertension; anxiety; depression, hypercholesterolemia. PAST SURGICAL HISTORY: Hysterectomy, thymectomy (status post sternotomy), cholecystectomy. MEDICATIONS: 1. Albuterol inhaler p.r.n. 2. Hydrochlorothiazide 25 q.a.m. 3. Atorvastatin 40 q.h.s. 4. Aspirin 81 daily. 5. Tegretol 200 mg b.i.d. ALLERGIES: MORPHINE, OXYCODONE, AND DEMEROL CAUSE RASHES. SOCIAL HISTORY: She continues to smoke 5 to 6 cigarettes per day. She is a cocaine abuser. She occasionally drinks alcohol. REVIEW OF SYSTEMS: 10-point review of systems is otherwise unremarkable. PHYSICAL EXAMINATION: VITAL SIGNS: Blood pressure 174/74, pulse of 54. She did have one episode in the emergency room where she was bradycardic with heart rate in the upper 30s, but asymptomatic. HEENT: Somewhat dysconjugate gaze with the right eye. CHEST: Clear. CARDIAC: S1 and S2 normal without any S3, S4, or murmurs. ABDOMEN: Normal bowel sounds without tenderness organomegaly. EXTREMITIES: Reveal trace pretibial edema. NEUROLOGIC: Grossly intact. SKIN: Warm and dry. LABORATORY DATA: EKG revealed sinus bradycardia with sinus arrhythmia with rate of 54 per minute, left ventricular hypertrophy, poor R wave progression. Hemoglobin 14.5, hematocrit 43.2, white count 5000, platelets 273,000. Sodium 143, potassium 4.6, chloride 109, carbon dioxide 29, BUN 12, creatinine 0.79. Troponin I is normal. AST 60, ALT 84. TSH is low at 0.2442 (her TSH had been low in the past on evaluation of pituitary enzymes). Chest x-ray revealed previous sternotomy, but no acute changes. IMPRESSION: 1. Multiple episodes of syncope. The patient has documented a heart rate in the upper 30s without symptoms in the emergency room. Certainly, she may have other more significant bradycardia or sinus pauses that lead to her episodes of syncope; however, this is not documented at present. She will continue to be monitored for any significant arrhythmias. It would be somewhat unusual for someone in her age group to require pacemaker. 2. History of seizure disorders and in the past has been labeled possible pseudoseizure by Dr. Samayoa. In the past, her Tegretol level has been undetectable and this will be checked in the morning. Certainly, this may also contribute to her syncopal episodes. 3. Smoker with chronic obstructive pulmonary disease. She denies that she has coughing episodes at the time that she has her syncope. 4. Status post thymectomy from myasthenia gravis. 5. History of cerebrovascular accident in 2015, treated with tPA. 6. Anxiety. 7. Hypertension. 8. Cocaine abuse. 9. Low TSH level. PLAN: The patient continue to be monitored. Once COVID has been ruled out, she will undergo echocardiography. Tegretol level will be obtained. Also, free T4 and free T3 will be obtained. Urine drug screen is pending. Job ID: [id number] MTDD
[2020-03-03] MEDS: Atorvastatin Calcium 40 MG TAB PO SCH (20:48)
[2020-03-03] MEDS: hydrOXYzine 25 MG TAB PO PRN (20:48)
[2020-03-03] MEDS: Docusate 100 MG CAP PO SCH (20:48)
[2020-03-03] MEDS: Famotidine 20 MG TAB PO SCH (20:48)
[2020-03-03 21:06] LABS: Amphetamine Not Detected (NotDetected); Barbiturates Screen Not Detected (NotDetected); Benzodiazepine Screen Not Detected (NotDetected); Cocaine Metabolite Screen Detected (NotDetected); Medtox Control Line Valid? VALID (VALID); Medtox Reader # READER 4; Methadone Not Detected (NotDetected); Methamphetamine Not Detected (NotDetected); Opiate Screen Not Detected (NotDetected); Oxycodone Screen Not Detected (NotDetected); Phencyclidine (PCP) Not Detected (NotDetected); THC/Cannabinoid Screen Not Detected (NotDetected); Tricyclic Screen Not Detected (NotDetected)
[2020-03-03 23:43] LABS: HBCM Index 0.47 S/CO (0-0.79); Hep B Surf AB Non-Reactive (NonReactive); Hep C IgG Ab Non-Reactive (NonReactive); Hep C Index 0.06 S/CO (0-0.79); Hepatitis B Core IgM Abs Non-Reactive (NonReactive)
[2020-03-04 00:48] LABS: Hep B Core Total Ab Reactive (NonReactive)
[2020-03-04 00:50] LABS: Hep B Core Total Index 11.77 S/CO (0-0.79)
[2020-03-04 01:06] LABS: HBSAg Index 2757.72 S/CO (0-0.99)
[2020-03-04 01:08] LABS: Hep B Surf Ag Reflx Confirmation S/CO (NonReactive)
[2020-03-04] MEDS ORDERED: Acetaminophen 325 MG TAB PO SCH (04:45)
[2020-03-04 04:50] LABS: #Eosinphils 0.2 thou/uL (0.0-0.7); #Lymphocytes 2.1 thou/uL (1.20-3.40); #Monocytes 0.4 thou/uL (0.11-0.59); #Neutrophils 2.3 thou/uL (1.40-6.50); %Basophils 0.9 % (0.0-1.0); %Eosinophils 4.3 % (0.0-10.0); %Lymphocytes 42.1 % (21.0-51.0); %Monocytes 8.2 % (0.0-10.0); %Neutrophils 44.6 % (42.0-75.0); Hemoglobin 14.5 g/dL (12.0-16.0); Mean Corpuscular HGB CONC 34.8 g/dL (32.0-36.0); Mean Corpuscular Hemoglobin 36.1 pg (27.0-31.0); Mean Platelet Volume 6.5 fL (7.4-10.4); Platelet Count 257 thou/uL (130-400); Red Blood Cell (RBC) Count 4.01 mill/uL (4.20-5.40); White Blood Cell (WBC) Count 5.1 thou/uL (4.8-10.8)
[2020-03-04 05:15] LABS: ALT (SGPT) 82 U/L (8-55); AST (SGOT) 56 U/L (5-34); Albumin 3.2 g/dL (3.5-5.0); Alkaline Phosphatase 98 U/L (40-110); Anion Gap 9 mmol/L (10-20); BUN (Urea Nitrogen) 12 mg/dL (9.8-20.1); Bilirubin, Total 0.2 mg/dL (0.2-1.2); Calc. Creatinine Clearance 147 mL/min (70-130); Calcium 8.9 mg/dL (7.8-10.44); Carbon Dioxide 25 mmol/L (22-29); Chloride 109 mmol/L (98-107); Estimated GFR-MDRD Greater than 90; Globulin 3.3 g/dL (2.4-3.5); Glucose 140 mg/dL (70-105); Potassium 4.1 mmol/L (3.5-5.1); Protein, Total 6.5 g/dL (6.0-8.3); Sodium 139 mmol/L (136-145)
[2020-03-04 05:32] LABS: Free T4 (Free Thyroxine) 0.7 ng/dL (0.70-1.48)
[2020-03-04] MEDS: Polyethylene Glycol 3350 17 GM Packet PO SCH (08:39)
[2020-03-04] MEDS: Docusate 100 MG CAP PO SCH ×2 (08:39→19:01)
[2020-03-04] MEDS: Famotidine 20 MG TAB PO SCH (08:39)
[2020-03-04] MEDS: carBAMazepine 200 MG TAB PO SCH ×2 (08:39→16:47)
[2020-03-04] MEDS: Aspirin 81 mg Enteric Coated Tablet PO SCH (08:39)
[2020-03-04] MEDS ORDERED: Enoxaparin Sodium 40 MG/0.4 ML SYRINGE SC SCH (09:00)
[2020-03-04] MEDS ORDERED: Hydrochlorothiazide 25 MG TAB PO SCH (09:00)
--- NOTE | 2020-03-04 09:54 | PDOC.FM ---
- Subjective Subjective: resting comfortably, complains of intermittent abd pain. no other complaints at this time. - Objective Vital Signs & Weight: Vital Signs (12 hours) Temp Pulse Resp BP Pulse Ox 03/04/20 08:37 96.8 F L 43 L 16 126/69 99 03/04/20 03:54 97.0 F L 61 18 122/74 99 Weight Weight 108.046 kg I&O: 03/03/20 03/04/20 03/05/20 06:59 06:59 06:59 Intake Total 560 Balance 560 Result Diagrams: 03/04/20 04:35 03/04/20 04:35 Phys Exam - Physical Examination Constitutional: NAD HEENT: moist MMs, sclera anicteric Neck: supple, full ROM Respiratory: no wheezing, clear to auscultation bilateral Cardiovascular: no significant murmur HR 60 on exam Gastrointestinal: soft, positive bowel sounds mild lower quadrant ttp Musculoskeletal: no edema, pulses present Neurological: normal sensation, moves all 4 limbs Psychiatric: normal affect, A&O x 3 Skin: no rash, normal turgor Dx/Plan (1) Symptomatic bradycardia Code(s): R00.1 - BRADYCARDIA, UNSPECIFIED Status: Acute (2) Constipation Code(s): K59.00 - CONSTIPATION, UNSPECIFIED Status: Acute (3) Syncope Code(s): R55 - SYNCOPE AND COLLAPSE Status: Acute (4) HTN (hypertension) Code(s): I10 - ESSENTIAL (PRIMARY) HYPERTENSION Status: Chronic (5) Myasthenia gravis Code(s): G70.00 - MYASTHENIA GRAVIS WITHOUT (ACUTE) EXACERBATION Status: Chronic (6) Seizure disorder Code(s): G40.909 - EPILEPSY, UNSP, NOT INTRACTABLE, WITHOUT STATUS EPILEPTICUS Status: Chronic - Plan Plan: Syncope Likely 2/2 Symptomatic Bradycardia: A- Pt stable but still having bradycardia on telemetry. Mg/phos/TSH are wnl. echo pending, last echo here 2014 wnl. EKG with sinus bradycardia, V2 T wave inversion only, hx of KIM progressing to dyspnea at rest, concerning for CAD. Cards consulted, appreciate recs. ECHO halted 2/2 covid PUI status P- monitor on tele -f/u cards recs -f/u ECHO Mild Transaminitis and RUQ Abd Pain: A- Positive HepB labs, confirmatory labs pernding. CTabd yesterday negative. s/ p cholecystectomy years ago P- RUQ US pending, likely to be done after COVID19 completed and negative -f/u on confirmatory hepatitis B labwork -possible ID consult once this results -ibuprofen for abdominal pain PUI COVID-19: A- stable respiratory status, no current Sx. P- droplet precautions -COVID pending, swabbed 03/02 Constipation: -Colace scheduled, Dulcolax prn Hx of COPD: -albuterol inhaler prn HTN: -home meds Myasthenia Gravis s/p Thymectomy: -aware Seizure DO: -no recent seizures. continue carbamazepine. -will get carbamazepine Cocaine Abuse: -MD aware, advised to quit Tobacco Abuse: -nicotine patch prn DVT PPx: Lovenox GI PPx: protonix Code status: Full
[2020-03-04] MEDS ORDERED: Ibuprofen 600 MG TAB PO PRN (09:55)
[2020-03-04] MEDS: Atorvastatin Calcium 40 MG TAB PO SCH (19:01)
[2020-03-04] MEDS: hydrOXYzine 25 MG TAB PO PRN (19:07)
[2020-03-05 05:01] LABS: #Eosinphils 0.2 thou/uL (0.0-0.7); #Lymphocytes 1.7 thou/uL (1.20-3.40); #Monocytes 0.4 thou/uL (0.11-0.59); %Basophils 0.8 % (0.0-1.0); %Eosinophils 4.6 % (0.0-10.0); %Monocytes 8.2 % (0.0-10.0); %Neutrophils 46.5 % (42.0-75.0); Hemoglobin 15.9 g/dL (12.0-16.0); Mean Corpuscular HGB CONC 34.7 g/dL (32.0-36.0); Mean Corpuscular Hemoglobin 36.1 pg (27.0-31.0); Mean Platelet Volume 6.6 fL (7.4-10.4); Platelet Count 268 thou/uL (130-400); RBC Distribution Width 13.2 % (11.5-14.5); Red Blood Cell (RBC) Count 4.41 mill/uL (4.20-5.40); White Blood Cell (WBC) Count 4.2 thou/uL (4.8-10.8)
[2020-03-05 05:23] LABS: Carbamazepine-Tegretol 4.6 ug/mL (4.0-12.0)
[2020-03-05 05:25] LABS: ALT (SGPT) 88 U/L (8-55); AST (SGOT) 58 U/L (5-34); Albumin 3.3 g/dL (3.5-5.0); Alkaline Phosphatase 101 U/L (40-110); Anion Gap 12 mmol/L (10-20); BUN (Urea Nitrogen) 17 mg/dL (9.8-20.1); Bilirubin, Total 0.3 mg/dL (0.2-1.2); Calc. Creatinine Clearance 126 mL/min (70-130); Calcium 9.7 mg/dL (7.8-10.44); Carbon Dioxide 25 mmol/L (22-29); Chloride 106 mmol/L (98-107); Estimated GFR-MDRD 85; Globulin 3.6 g/dL (2.4-3.5); Glucose 100 mg/dL (70-105); Potassium 4.9 mmol/L (3.5-5.1); Protein, Total 6.9 g/dL (6.0-8.3); Sodium 138 mmol/L (136-145)
--- NOTE | 2020-03-05 06:35 | PDOC.FM ---
- Subjective Subjective: Overnight, patient's HR down to 43. Patient asymptomatic. Patient resting comfortably in bed. Patient states that she feels well this morning, no complaints or concerns. Patient denies any NVD, dizziness, lightheadedness, syncope, chest pain, SOB, palpitaitons. - Objective MAR Reviewed: Yes Vital Signs & Weight: Vital Signs (12 hours) Temp Pulse Resp BP Pulse Ox 03/05/20 03:17 97.7 F 66 16 119/61 97 03/04/20 20:00 98 03/04/20 19:03 97.5 F L 67 18 117/67 98 Weight Weight 108.046 kg I&O: 03/03/20 03/04/20 03/05/20 06:59 06:59 06:59 Intake Total 560 1800 Balance 560 1800 Result Diagrams: 03/05/20 04:49 03/05/20 04:49 Phys Exam - Physical Examination Constitutional: NAD HEENT: PERRLA, moist MMs, sclera anicteric Neck: supple, full ROM Respiratory: clear to auscultation bilateral Cardiovascular: RRR, no significant murmur, no rub Gastrointestinal: soft, non-tender, no distention, positive bowel sounds trace edema b/l LE to level of ankle Neurological: non-focal Psychiatric: normal affect Skin: no rash, normal turgor, cap refill <2 seconds Dx/Plan (1) Symptomatic bradycardia Code(s): R00.1 - BRADYCARDIA, UNSPECIFIED Status: Acute (2) Syncope Code(s): R55 - SYNCOPE AND COLLAPSE Status: Acute (3) Cocaine abuse Code(s): F14.10 - COCAINE ABUSE, UNCOMPLICATED Status: Chronic (4) HTN (hypertension) Code(s): I10 - ESSENTIAL (PRIMARY) HYPERTENSION Status: Chronic - Plan Plan: Syncope Likely 2/2 Symptomatic Bradycardia Patient w/ bradycardia on admission. Last echo in 2014 normal. EKG with sinus kym on arrival, V2 T wave inversion only. Hx of KIM progressing to dyspnea at rest. - Cardiology consulted, appreciate recommendations. Plan for pacemaker procedure possibly later today. Patient NPO. - Monitor on telemetry, overnight patient HR 40s-60s - Echo: EF 50-55%, aortic valve sclerotic, LA mildly dilated Mild Transaminitis and RUQ Abd Pain Patient with elevated AST/ALT; s/p cholecystectomy - Positive HepB labs, confirmatory labs pending. CTabd negative. - RUQ US pending - Possible ID vs GI consult once this results - Ibuprofen for abdominal pain PUI COVID-19 Results Negative, precautions removed Constipation - Colace scheduled, Dulcolax prn Hx of COPD - Albuterol inhaler prn HTN - home meds Myasthenia Gravis s/p Thymectomy - aware Hx of seizure disorder - No recent seizures. Continue carbamazepine. Cocaine Abuse - MD aware, advised to quit Tobacco Abuse - Nicotine patch prn DVT PPx: Lovenox GI PPx: protonix Code status: Full Case discussed with Dr. Joiner Addendum - Attending - Attending Attestation Date/Time: 03/05/20 1111 I personally evaluated the patient and discussed the management with Dr. Ashby. I agree with the History, Examination, Assessment and Plan documented above with any addition or exceptions noted below. Patient stable. Going for pacemaker today. Further inpatient mgmt pending cardiology recs.
[2020-03-05] MEDS ORDERED: CEFAZOLIN 1 GM VIAL ONE (07:23)
[2020-03-05] MEDS ORDERED: Gentamicin 80 MG/2 ML VIAL ONE (07:23)
[2020-03-05] MEDS: Sodium Chloride 0.9% 1,000 ML IV SCH ×2 (08:06→17:06)
[2020-03-05] MEDS: carBAMazepine 200 MG TAB PO SCH ×2 (08:06→16:50)
[2020-03-05] MEDS ORDERED: Fentanyl 100 MCG/2 ML VIAL ONE (09:51)
[2020-03-05] MEDS ORDERED: Midazolam HCl 2 mg/2 ml Vial ONE (09:51)
[2020-03-05] MEDS ORDERED: Lidocaine 1% (PF) 30 ML VIAL ONE ×2 (09:52→10:00)
[2020-03-05] MEDS ORDERED: Iopamidol 370 76% 50 ML VIAL FS ONE (11:33)
[2020-03-05] MEDS: Docusate 100 MG CAP PO SCH ×2 (13:04→20:36)
[2020-03-05] MEDS: Aspirin 81 mg Enteric Coated Tablet PO SCH (13:04)
[2020-03-05] MEDS: Polyethylene Glycol 3350 17 GM Packet PO SCH (13:05)
[2020-03-05] MEDS: Pantoprazole 40 MG GRANULES PACKET PO SCH (13:05)
--- NOTE | 2020-03-05 14:01 | ULT ---
EXAM: US Gallbladder RUQ CLINICAL HISTORY: Right upper quadrant pain. Elevated LFTs. COMPARISON: None. FINDINGS: Pancreas: The head and proximal pancreatic body have a normal echotexture. The remainder the pancrea s is obscured by bowel gas Liver:Hepatic parenchyma has a normal echotexture. No hepatic masses or intrahepatic biliary dilatati on. Right hepatic lobe: 19.4 cm Gallbladder: Surgically absent Song's sign:Not applicable Portal Vein: Patent. Appropriate directional flow Bile ducts: 0.8 cm common bile duct diameter Right kidney: No hydronephrosis. Right kidney measures 10.1 x 5.6 x 3.6 cm in length. IMPRESSION: 1. No acute abnormality. 2. Mild hepatomegaly.
[2020-03-05] MEDS ORDERED: Acetaminophen/Codeine 30-300mg Tablet PO PRN ×2 (16:00)
[2020-03-05] MEDS: Mag-Al 1200 mg/1200 mg/30 ML UDCUP PO PRN (17:26)
[2020-03-05] MEDS: Metoprolol Tartrate 25 MG TAB PO SCH (20:36)
[2020-03-05] MEDS: Atorvastatin Calcium 40 MG TAB PO SCH (20:36)
[2020-03-05] MEDS: hydrOXYzine 25 MG TAB PO PRN (20:36)
[2020-03-05] MEDS: HYDROcodone/Acetaminophen 5/325 mg Tablet PO PRN (20:37)
[2020-03-06] MEDS: HYDROcodone/Acetaminophen 5/325 mg Tablet PO PRN ×3 (04:30→16:21)
[2020-03-06] MEDS: Sodium Chloride 0.9% 1,000 ML IV SCH (04:33)
[2020-03-06] MEDS: Mag-Al 1200 mg/1200 mg/30 ML UDCUP PO PRN (04:48)
[2020-03-06 05:39] LABS: ALT (SGPT) 94 U/L (8-55); AST (SGOT) 73 U/L (5-34); Albumin 3.4 g/dL (3.5-5.0); Alkaline Phosphatase 124 U/L (40-110); Anion Gap 11 mmol/L (10-20); BUN (Urea Nitrogen) 18 mg/dL (9.8-20.1); Bilirubin, Total 0.3 mg/dL (0.2-1.2); Calc. Creatinine Clearance 132 mL/min (70-130); Calcium 8.8 mg/dL (7.8-10.44); Carbon Dioxide 25 mmol/L (22-29); Chloride 106 mmol/L (98-107); Estimated GFR-MDRD 90; Globulin 3.7 g/dL (2.4-3.5); Glucose 103 mg/dL (70-105); Potassium 4.7 mmol/L (3.5-5.1); Protein, Total 7.1 g/dL (6.0-8.3); Sodium 137 mmol/L (136-145)
[2020-03-06 06:06] LABS: RBC Distribution Width 13.2 % (11.5-14.5)
[2020-03-06 06:43] LABS: White Blood Cell (WBC) Count 4.8 thou/uL (4.8-10.8)
[2020-03-06 06:45] LABS: Red Blood Cell (RBC) Count 4.42 mill/uL (4.20-5.40)
--- NOTE | 2020-03-06 06:45 | PDOC.FM ---
- Subjective Subjective: Overnight, patient with some pain and given norco in addition to her tylenol # 3. Patient resting comfortably in bed this AM. States that she continues to have pain at the pacemaker site. She denies any palpitations. Endorses some abdominal pain. States that she has had regular BMs. She states the maalox does help the abdominal pain and the norco tends to make it worse. - Objective MAR Reviewed: Yes Vital Signs & Weight: Vital Signs (12 hours) Temp Pulse Resp BP Pulse Ox 03/06/20 04:16 98.3 F 61 18 118/61 95 03/05/20 23:51 98.3 F 68 16 118/58 L 96 03/05/20 20:00 96 Weight Weight 108.046 kg I&O: 03/04/20 03/05/20 03/06/20 06:59 06:59 06:59 Intake Total 560 1800 Balance 560 1800 Result Diagrams: 03/06/20 04:55 03/06/20 04:55 Phys Exam - Physical Examination Constitutional: NAD HEENT: PERRLA, moist MMs, sclera anicteric Neck: supple, full ROM Respiratory: clear to auscultation bilateral Cardiovascular: RRR, no significant murmur, no rub pacemaker site healing L chest, mild surrounding erythema and swelling Gastrointestinal: soft, non-tender, no distention, positive bowel sounds trace edema b/l LE Neurological: non-focal, moves all 4 limbs Psychiatric: normal affect, A&O x 3 Skin: no rash, normal turgor, cap refill <2 seconds Dx/Plan (1) Symptomatic bradycardia Code(s): R00.1 - BRADYCARDIA, UNSPECIFIED Status: Acute (2) Syncope Code(s): R55 - SYNCOPE AND COLLAPSE Status: Acute (3) Cocaine abuse Code(s): F14.10 - COCAINE ABUSE, UNCOMPLICATED Status: Chronic (4) HTN (hypertension) Code(s): I10 - ESSENTIAL (PRIMARY) HYPERTENSION Status: Chronic - Plan Plan: Syncope Likely 2/2 Symptomatic Bradycardia Patient w/ bradycardia on admission. Last echo in 2014 normal. EKG with sinus kym on arrival, V2 T wave inversion only. Hx of KIM progressing to dyspnea at rest. - Cardiology consulted, appreciate recommendations. s/p pacemaker placed on . Day 2 stress test today. - Monitor on telemetry - Echo: EF 50-55%, aortic valve sclerotic, LA mildly dilated - [place] for pain control Mild Transaminitis and RUQ Abd Pain Patient with elevated AST/ALT; s/p cholecystectomy - Positive HepB labs, confirmatory labs pending. HepA positive. CTabd negative. - RUQ US showing hepatomegaly - Possible ID vs GI consult once this results - Ibuprofen for abdominal pain PUI COVID-19 Results Negative, precautions removed Constipation - Colace scheduled, Dulcolax prn Hx of COPD - Albuterol inhaler prn HTN - home meds Myasthenia Gravis s/p Thymectomy - aware Hx of seizure disorder - No recent seizures. Continue carbamazepine. Cocaine Abuse - MD aware, advised to quit Tobacco Abuse - Nicotine patch prn DVT PPx: Lovenox GI PPx: protonix Code status: Full Case discussed with Dr. Joiner Addendum - Attending - Attending Attestation Date/Time: 03/06/20 1025 I personally evaluated the patient and discussed the management with Dr. Ashby. I agree with the History, Examination, Assessment and Plan documented above with any addition or exceptions noted below. Patient is s/p PM placement yesterday. Undergoing stress testing today. Awaiting results and further cardiology recs but hopefully moving to dc in near future.
[2020-03-06 06:46] LABS: Hemoglobin 15.4 g/dL (12.0-16.0)
[2020-03-06 06:47] LABS: Mean Corpuscular HGB CONC 33.5 g/dL (32.0-36.0); Mean Corpuscular Hemoglobin 34.8 pg (27.0-31.0); Mean Platelet Volume 7.2 fL (7.4-10.4); Platelet Count 259 thou/uL (130-400)
[2020-03-06] MEDS: Docusate 100 MG CAP PO SCH ×2 (08:11→22:20)
[2020-03-06] MEDS: Aspirin 81 mg Enteric Coated Tablet PO SCH (08:11)
[2020-03-06] MEDS: Pantoprazole 40 MG GRANULES PACKET PO SCH (08:12)
[2020-03-06] MEDS: carBAMazepine 200 MG TAB PO SCH ×2 (08:12→16:21)
[2020-03-06] MEDS: Polyethylene Glycol 3350 17 GM Packet PO SCH (08:12)
[2020-03-06 08:50] LABS: #Eosinphils 0.2 thou/uL (0.0-0.7); #Lymphocytes 2.1 thou/uL (1.20-3.40); #Monocytes 0.4 thou/uL (0.11-0.59); #Neutrophils 2.4 thou/uL (1.40-6.50); %Basophils 0.7 % (0.0-1.0); %Eosinophils 4.7 % (0.0-10.0); %Lymphocytes 39.8 % (21.0-51.0); %Monocytes 7.4 % (0.0-10.0); %Neutrophils 47.4 % (42.0-75.0)
[2020-03-06 08:51] LABS: Band 1 % (5-11); Eosinophils 2 % (0-10); Lymphocytes 41 % (21-51); MDiff Complete? YES; Monocytes 4 % (0-10); Neutrophil 48 % (42-75); RBC Morphology Normal; Reactive Lymphocytes 4 % (0-10)
[2020-03-06] MEDS: Metoprolol Tartrate 25 MG TAB PO SCH ×2 (11:36→22:22)
[2020-03-06] MEDS ORDERED: Regadenoson 0.4 MG/5 ML SYRINGE ONE (11:44)
--- NOTE | 2020-03-06 12:24 | NM ---
CARDIAC SPECT: CLINICAL HISTORY: 60-year-old female with chest pain, COPD, CHF, TIA, asthma, hypertension, dyslipidemia, and smoker. TECHNIQUE: A myocardial perfusion scan was performed using the single isotope two day protocol with 33 mCi techn etium-99m sestamibi injected intravenously for both stress and rest images. Pharmacologic stress with Lexiscan was monitored and interpreted by Dr. Wilks. FINDINGS: Fairly homogeneous tracer distribution is seen in the myocardial segments on stress and rest images w ithout fixed or reversible defects. TID ratio is 1.42. GATED SPECT LVEF: 67%. WALL MOTION EXAM: Normal. IMPRESSION: TID ratio is 1.42. Clinical correlation is recommended. POS: MZA
[2020-03-06] MEDS ORDERED: Communication Order-Pharmacy FS SCH (16:45)
--- NOTE | 2020-03-06 16:55 | CCL ---
DATE OF PROCEDURE: 03/05/20 PROCEDURE: Left subclavian venogram and pacemaker insertion. INDICATION: Syncope, heart rate in the mid 30s. DESCRIPTION OF PROCEDURE: The patient was brought to the Cardiac Brief Writer and the left subclavian area was prepped and draped. She was given versed 1 mg and Fentanyl 25 mg intravenously. Fentanyl 25 mg was repeated later in the case. A left subclavian venogram was performed using 50/50 mix of contrast and saline. 1 % Lidocaine was infiltrated in the left subclavian area. The J-wire was placed into the left subclavian vein. Pacemaker pocket was manufactured using blunt and sharp dissection with electrocautery for hemostasis. An antibiotic solution soaked gauze was placed in the subcutaneous pocket. A second J-wire was placed into the left subclavian vein. Using a 7 [place] peel away sheaths, the atrial and ventricular leads were inserted. The right ventricular lead was advanced to the RV apex and screwed in place. R-wave 9.0, impedance 1143, threshold 0.7 volts. The atrial lead was screwed into the right atrium, P-wave 5.5, impedance 636, threshold 0.4 volts. The tabs on the suture tie-downs were removed and both leads were secured in place with two sutures of 0 silk. The antibiotic solution soaked gauze was removed from the pocket and this was irrigated with copious amounts of antibiotic solution. The leads were attached to the pacemaker generator and this was placed into the pocket and secured in place with one suture of 0 silk. The incision was then closed using two layers of running 3-0 Vicryl, one layer of running 4-0 Vicryl. Dermabond was placed on the incision. The patient tolerated the procedure well. BENEDICTO
[2020-03-06] MEDS: Atorvastatin Calcium 40 MG TAB PO SCH (22:20)
[2020-03-07] MEDS: HYDROcodone/Acetaminophen 5/325 mg Tablet PO PRN (03:23)
[2020-03-07] MEDS: Polyethylene Glycol 3350 17 GM Packet PO SCH (05:10)
[2020-03-07] MEDS: Docusate 100 MG CAP PO SCH (05:10)
[2020-03-07] MEDS: Aspirin 81 mg Enteric Coated Tablet PO SCH (05:22)
[2020-03-07] MEDS: Metoprolol Tartrate 25 MG TAB PO SCH (05:22)
[2020-03-07] MEDS: carBAMazepine 200 MG TAB PO SCH (05:22)
[2020-03-07] MEDS: Pantoprazole 40 MG GRANULES PACKET PO SCH (05:23)
[2020-03-07] MEDS ORDERED: Sodium Chloride 0.9% 1,000 ML IV SCH ×2 (06:00→07:30)
[2020-03-07 06:03] LABS: Cardiac Risk 2.4 (Less than 4.5)
[2020-03-07] MEDS ORDERED: Heparin 10,000 UNITS/1 ML VIAL ONE (06:31)
--- NOTE | 2020-03-07 06:59 | PDOC.FM ---
- Subjective Subjective: Patient is back in room after cath. She says it went well. Has no concerns. Would like to go home. - Objective Vital Signs & Weight: Vital Signs (12 hours) Temp Pulse Resp BP Pulse Ox 03/07/20 03:25 98.4 F 60 18 148/67 H 96 03/07/20 00:00 96 03/06/20 23:15 98.7 F 60 16 121/60 97 03/06/20 20:00 96 03/06/20 19:10 97.7 F 80 18 127/71 93 L Weight Weight 108.046 kg I&O: 03/05/20 03/06/20 03/07/20 06:59 06:59 06:59 Intake Total 1800 Balance 1800 Result Diagrams: 03/06/20 04:55 03/06/20 04:55 Phys Exam - Physical Examination Constitutional: NAD (laying in recovery) normal effort trace edema Neurological: non-focal Psychiatric: normal affect Dx/Plan - Plan Plan: Syncope Likely 2/2 Symptomatic Bradycardia Patient w/ bradycardia on admission. Last echo in 2014 normal. EKG with sinus kym on arrival, V2 T wave inversion only. Hx of KIM progressing to dyspnea at rest. - Cardiology consulted, appreciate recommendations. s/p pacemaker placed on . Stress test completed. Cath report pending. - Monitor on telemetry - Echo: EF 50-55%, aortic valve sclerotic, LA mildly dilated - [place] for pain control Mild Transaminitis and RUQ Abd Pain Patient with elevated AST/ALT; s/p cholecystectomy - Positive HepB labs, confirmatory labs pending. HepA positive. CTabd negative. - RUQ US showing hepatomegaly - Possible ID vs GI consult once this results - Ibuprofen for abdominal pain PUI COVID-19 Results Negative, precautions removed Constipation - Colace scheduled, Dulcolax prn Hx of COPD - Albuterol inhaler prn HTN - home meds Myasthenia Gravis s/p Thymectomy - aware Hx of seizure disorder - No recent seizures. Continue carbamazepine. Cocaine Abuse - MD aware, advised to quit Tobacco Abuse - Nicotine patch prn DVT PPx: Lovenox GI PPx: protonix Code status: Full Dispo: pending final cardiology recs. Could be discharged later today. Case discussed with Dr. Joiner Addendum - Attending - Attending Attestation Date/Time: 03/07/20 [id number] I personally evaluated the patient and discussed the management with Dr. Carpenter. I agree with the History, Examination, Assessment and Plan documented above with any addition or exceptions noted below. Patient s/p heart cath. Further mgmt pending cardiology recs, hopefully home today or tomorrow. Medical optimization for her coronary disease and other chronic conditions.
[2020-03-07] MEDS ORDERED: Fentanyl 100 MCG/2 ML VIAL ONE (07:05)
[2020-03-07] MEDS ORDERED: Midazolam HCl 2 mg/2 ml Vial ONE (07:05)
[2020-03-07] MEDS ORDERED: Protamine Sulfate 50 MG/5 ML VIAL ONE (07:20)
[2020-03-07] MEDS ORDERED: Nitroglycerin 0.4 MG TAB (25 Tab Bottle) SL PRN (07:29)
[2020-03-07] MEDS ORDERED: Sodium Chloride 0.9% 200 ML IV PRN (07:29)
[2020-03-07] MEDS ORDERED: Acetaminophen/Codeine 30-300mg Tablet PO PRN (07:56)
[2020-03-07] MEDS: Cephalexin 250 MG CAP PO SCH ×2 (08:31→13:51)
[2020-03-07] MEDS ORDERED: Iopamidol 370 76% 100 ML VIAL ONE (12:01)
[2020-03-07 14:12] LABS: HBV as IU/mL See Final Results IU/mL (.)
[2020-03-07 15:23] VITALS: BP 145/66; TEMP 98.4
--- NOTE | 2020-03-08 02:14 | DIS ---
DATE OF ADMISSION: 03/03/2020 DATE OF DISCHARGE: 03/07/2020 ADMITTING ATTENDING: Dr. Richard Palacios. DISCHARGE ATTENDING: Dr. Salvatore Joiner. RESIDENT: Laya Ashby MD CONSULTS: Cardiology, Dr. Dotson. PROCEDURES: 1. Pacemaker placement performed on 03/05/2020. 2. Stress test performed on days 03/05 and 03/06. 3. Heart catheterization performed on 03/07/2020. 4. TTE on 03/04/20 DISCHARGE MEDICATIONS: 1. Colace 100 mg oral twice daily. 2. Motrin 600 mg oral every 8 hours as needed. 3. Metoprolol 12.5 mg oral twice daily. 4. MiraLAX 17 g oral daily. 5. Senokot 2 tabs oral twice daily as needed. 6. Tylenol No. 3 one tablet oral every 6 hours as needed. 7. Keflex 250 mg oral 4 times daily. 8. Lipitor 40 mg oral at bedtime. 9. Aspirin 81 mg oral daily. 10. Carbamazepine 200 mg oral twice daily. 11. Albuterol 2 inhalation every 4 hours as needed. DISCONTINUED MEDICATIONS: Hydrochlorothiazide. PRIMARY DIAGNOSES: 1. Syncope secondary to symptomatic bradycardia. 2. Mild transaminitis due to active hepatitis B. SECONDARY DIAGNOSES: 1. Chronic obstructive pulmonary disease. 2. Hypertension. 3. History of seizure disorder. 4. Myasthenia gravis, status post thymectomy. 5. Cocaine abuse. 6. Tobacco abuse. HISTORY OF PRESENT ILLNESS/HOSPITAL COURSE: This is a 60-year-old female, who presented to the ER for syncope x2, and was found to be bradycardic on admission with a HR of 54. The patient also reported a chronic cough and was therefore tested for coronavirus. She was admitted to telemetry for symptomatic bradycardia. The patient was found to be negative for coronavirus. She then proceeded with her cardiac work up with a stress test and pacemaker placement on the dates listed above. Her pacemaker procedure went well. Patient tolerated procedure. Her stress test returned with an elevated transient ischemic diameter of 1.42. She had a heart cath procedure that showed no stenosis and did not require any stenting. She also had an echo done that showed an EF of 50-55%, LA mildly dilated, sclerotic aortic valve. No diastolic dysfxn mentioned. The patient was also found to have elevated liver enzymes. She received a right upper quadrant ultrasound that only showed hepatomegaly. The patient was positive for chronic hepatitis B. She will need to follow up outpatient for referral and treatment of this. The patient was discharged in stable condition. The patient was encouraged to discontinue cocaine and tobacco use. DISPOSITION: Stable. DISCHARGE INSTRUCTIONS: Location: Home. ACTIVITY: Ad goyo. DIET: Heart healthy. FOLLOWUP: Follow up with PCP, Dr. Pike, within 7 days. Job ID: [id number] MTDD
--- NOTE | 2020-03-10 10:24 | EKG ---
Test Reason : Blood Pressure : / mmHG Vent. Rate : 054 BPM Atrial Rate : 054 BPM P-R Int : 162 ms QRS Dur : 092 ms QT Int : 426 ms P-R-T Axes : 053 -13 042 degrees QTc Int : 403 ms Sinus bradycardia with sinus arrhythmia Possible Left atrial enlargement Left ventricular hypertrophy Cannot rule out Septal infarct , age undetermined Abnormal ECG Confirmed by BRAYDEN CALLEJAS DO ([id number]), subeditor KALIA DOMINGO ([id number]) on 03/10/2020 10:24:09 AM Referred By: Confirmed By:BRAYDEN CALLEJAS DO
== END 2020-03-07 16:27 | disposition home or self-care (01) | DRG 243 ==
LOC: ERS 11:09 → 2SW 13:15
PROVIDERS: ADMIT Family Medicine; ATTEND Family Medicine
PROC: 8E0ZXY6 Isolation (ICD-10-PCS; 2020-03-03)
PROC: 0JH606Z Insertion of Pacemaker, Dual Chamber into Chest Subcutaneous Tissue and Fascia, Open Approach (ICD-10-PCS; principal; 2020-03-05)
PROC: 02H63JZ Insertion of Pacemaker Lead into Right Atrium, Percutaneous Approach (ICD-10-PCS; 2020-03-05)
PROC: 02HK3JZ Insertion of Pacemaker Lead into Right Ventricle, Percutaneous Approach (ICD-10-PCS; 2020-03-05)
PROC: 4A023N7 Measurement of Cardiac Sampling and Pressure, Left Heart, Percutaneous Approach (ICD-10-PCS; 2020-03-07)
PROC: B2111ZZ Fluoroscopy of Multiple Coronary Arteries using Low Osmolar Contrast (ICD-10-PCS; 2020-03-07)
PROC: B2151ZZ Fluoroscopy of Left Heart using Low Osmolar Contrast (ICD-10-PCS; 2020-03-07)
DX: R00.1 Bradycardia, unspecified (principal); B18.1 Chronic viral hepatitis B without delta-agent; Z20.828 Contact with and (suspected) exposure to other viral communicable diseases; G40.909 Epilepsy, unspecified, not intractable, without status epilepticus; F41.9 Anxiety disorder, unspecified; I10 Essential (primary) hypertension; G70.00 Myasthenia gravis without (acute) exacerbation; F32.9 Major depressive disorder, single episode, unspecified; E78.5 Hyperlipidemia, unspecified; F14.10 Cocaine abuse, uncomplicated; K59.00 Constipation, unspecified; E78.00 Pure hypercholesterolemia, unspecified; J44.9 Chronic obstructive pulmonary disease, unspecified; F17.210 Nicotine dependence, cigarettes, uncomplicated; Z88.5 Allergy status to narcotic agent; Z79.899 Other long term (current) drug therapy; Z79.82 Long term (current) use of aspirin; Z90.49 Acquired absence of other specified parts of digestive tract; Z90.710 Acquired absence of both cervix and uterus; Z86.73 Personal history of transient ischemic attack (TIA), and cerebral infarction without residual deficits
CPT/HCPCS: 33208; 36005; 36415; 71045; 74177; 75820; 76705; 78452; 80053; 80061; 80156; 80306; 80307; 81003; 82550; 83735; 83880; 84100; 84439; 84443; 84481; 84484; 85025; 85347; 86704; 86705; 86706; 86707; 86708; 86803; 87081; 87340; 87350; 87430; 87517; 87635; 87804; 93005; 93017; 93306; 93458; 99152; 99153; A9500; C1769; C1785; C1898; J0690; J1580; J1644; J1650; J2001; J2250; J2720; J2785; J3010; Q9967; U0002

== ENCOUNTER 2020-03-12 12:03 | Emergency (ER) | payer OTHER ==
--- NOTE | 2020-03-12 13:08 | RAD ---
Exam: Chest one view HISTORY:Recently placed pacemaker on 03/05/2020. Abnormal sensation. Comparison: 03/03/2020 FINDINGS: Pacemaker: Left-sided transvenous pacemaker with lead positioned over the right atrium and right ventricle. Cardiac silhouette:Normal cardiac silhouette. Stable mediastinal clips and sternotomy wires. Aorta: Unremarkable Pulmonary vessels: Normal Costophrenic angles: Clear LUNGS: No masses or consolidation. Pneumothorax: None Osseous abnormalities: None IMPRESSION: No acute cardiopulmonary process.
[2020-03-12 13:32] LABS: Hemoglobin 14.8 g/dL (12.0-16.0); Mean Corpuscular HGB CONC 32.5 g/dL (32.0-36.0); Mean Platelet Volume 7.3 fL (7.4-10.4); Platelet Count 200 thou/uL (130-400); RBC Distribution Width 12.7 % (11.5-14.5); Red Blood Cell (RBC) Count 4.36 mill/uL (4.20-5.40); White Blood Cell (WBC) Count 6.3 thou/uL (4.8-10.8)
[2020-03-12 13:45] LABS: Eosinophils 3 % (0-10); Lymphocytes 43 % (21-51); MDiff Complete? YES; Macrocytosis SLIGHT = 6-15 cells (100X) (0-5/hpf); Monocytes 6 % (0-10); Neutrophil 46 % (42-75); Platelet Morphology Comment Appears Adequate; Reactive Lymphocytes 1 % (0-10)
[2020-03-12 13:48] LABS: ALT (SGPT) 81 U/L (8-55); AST (SGOT) 53 U/L (5-34); Albumin 3.7 g/dL (3.5-5.0); Alkaline Phosphatase 148 U/L (40-110); Anion Gap 13 mmol/L (10-20); BUN (Urea Nitrogen) 13 mg/dL (9.8-20.1); Bilirubin, Total 0.4 mg/dL (0.2-1.2); Calc. Creatinine Clearance 0 mL/min (70-130); Calcium 9.5 mg/dL (7.8-10.44); Carbon Dioxide 23 mmol/L (22-29); Chloride 105 mmol/L (98-107); Estimated GFR-MDRD Greater than 90; Glucose 94 mg/dL (70-105); Potassium 4.2 mmol/L (3.5-5.1); Protein, Total 7.7 g/dL (6.0-8.3); Sodium 137 mmol/L (136-145)
--- NOTE | 2020-03-16 15:22 | EKG ---
Test Reason : Blood Pressure : / mmHG Vent. Rate : 066 BPM Atrial Rate : 066 BPM P-R Int : 148 ms QRS Dur : 100 ms QT Int : 382 ms P-R-T Axes : 066 -11 037 degrees QTc Int : 400 ms Electronic atrial pacemaker Minimal voltage criteria for LVH, may be normal variant Borderline ECG Confirmed by BRAYDEN CALLEJAS DO ([id number]), newspaper managing editor LAUREN MEANS ([id number]) on 03/16/2020 3:21:55 PM Referred By: Confirmed By:BRAYDEN CALLEJAS DO
== END 2020-03-12 14:32 | disposition home or self-care (01) ==
LOC: ERS 12:03
DX: Z45.010 Encounter for checking and testing of cardiac pacemaker pulse generator [battery] (principal); F41.9 Anxiety disorder, unspecified; F32.9 Major depressive disorder, single episode, unspecified; F17.210 Nicotine dependence, cigarettes, uncomplicated; K21.9 Gastro-esophageal reflux disease without esophagitis; J44.9 Chronic obstructive pulmonary disease, unspecified; I11.0 Hypertensive heart disease with heart failure; I50.9 Heart failure, unspecified; I72.9 Aneurysm of unspecified site; Z79.82 Long term (current) use of aspirin; Z79.899 Other long term (current) drug therapy; Z86.73 Personal history of transient ischemic attack (TIA), and cerebral infarction without residual deficits
CPT/HCPCS: 36415; 71045; 80053; 84484; 85025; 93005

== ENCOUNTER 2020-07-18 12:34 | Emergency (ER) | payer OTHER ==
[2020-07-18 13:08] LABS: #Eosinphils 0.2 thou/uL (0.0-0.7); #Lymphocytes 1.8 thou/uL (1.20-3.40); #Monocytes 0.3 thou/uL (0.11-0.59); #Neutrophils 2.8 thou/uL (1.40-6.50); %Basophils 0.4 % (0.0-1.0); %Eosinophils 3.5 % (0.0-10.0); %Lymphocytes 35.1 % (21.0-51.0); %Monocytes 6.7 % (0.0-10.0); %Neutrophils 54.3 % (42.0-75.0); Hemoglobin 14.8 g/dL (12.0-16.0); Mean Platelet Volume 7.1 fL (7.4-10.4); Platelet Count 235 thou/uL (130-400); RBC Distribution Width 12.5 % (11.5-14.5); Red Blood Cell (RBC) Count 4.48 mill/uL (4.20-5.40); White Blood Cell (WBC) Count 5.1 thou/uL (4.8-10.8)
--- NOTE | 2020-07-18 13:20 | RAD ---
RADIOGRAPH CHEST 1 VIEW: DATE: 07/18/2020 HISTORY: 60-year-old female with chest pain FINDINGS: There are no airspace densities, pulmonary edema, pneumothorax, or cardiomegaly. The lateral costophr enic angles are sharp. Left subclavian dual lead transvenous pacemaker. Sternotomy wires. IMPRESSION: No acute cardiopulmonary findings.
[2020-07-18] MEDS ORDERED: Ondansetron ODT 4 MG TAB ONE (13:28)
[2020-07-18] MEDS ORDERED: Dicyclomine 20 MG TAB ONE (13:28)
[2020-07-18] MEDS ORDERED: Aspirin Chewable 81 MG TAB ONE (13:28)
[2020-07-18 13:33] LABS: ALT (SGPT) 73 U/L (8-55); AST (SGOT) 48 U/L (5-34); Albumin 3.4 g/dL (3.5-5.0); Alkaline Phosphatase 112 U/L (40-110); Anion Gap 7 mmol/L (10-20); BUN (Urea Nitrogen) 15 mg/dL (9.8-20.1); Bilirubin, Total 0.3 mg/dL (0.2-1.2); Calc. Creatinine Clearance 0 mL/min (70-130); Calcium 8.7 mg/dL (7.8-10.44); Carbon Dioxide 28 mmol/L (22-29); Chloride 107 mmol/L (98-107); Estimated GFR-MDRD 76; Globulin 3.5 g/dL (2.4-3.5); Glucose 107 mg/dL (70-105); Protein, Total 6.9 g/dL (6.0-8.3); Sodium 138 mmol/L (136-145)
--- NOTE | 2020-07-21 13:07 | EKG ---
Test Reason : Blood Pressure : / mmHG Vent. Rate : 063 BPM Atrial Rate : 063 BPM P-R Int : 160 ms QRS Dur : 094 ms QT Int : 390 ms P-R-T Axes : 075 006 061 degrees QTc Int : 399 ms Electronic atrial pacemaker Confirmed by MANUELA COLE ([id number]), technical writer and editor KALIA DOMINGO ([id number]) on 07/21/2020 1:07:04 PM Referred By: Confirmed By:MANUELA COLE
== END 2020-07-18 16:20 | disposition home or self-care (01) ==
LOC: ERS 12:34
DX: R07.9 Chest pain, unspecified (principal); R10.10 Upper abdominal pain, unspecified; Z86.73 Personal history of transient ischemic attack (TIA), and cerebral infarction without residual deficits; I11.0 Hypertensive heart disease with heart failure; I50.9 Heart failure, unspecified; K21.9 Gastro-esophageal reflux disease without esophagitis; J44.1 Chronic obstructive pulmonary disease with (acute) exacerbation; F41.9 Anxiety disorder, unspecified; F32.9 Major depressive disorder, single episode, unspecified; F17.210 Nicotine dependence, cigarettes, uncomplicated
CPT/HCPCS: 71045; 80053; 83880; 84484; 85025; 93005; Q0162

== ENCOUNTER 2020-08-10 10:04 | Emergency (ER) | payer OTHER ==
[2020-08-10 11:40] LABS: Bacteria/HPF 3+ HPF (None Seen); Bilirubin Negative (Negative); Blood, Urine Negative (Negative); Clarity Clear (Clear); Glucose, Urine (Dipstick) Normal (Negative); Ketone, Urine Negative (Negative); Leukocyte 75 Leu/uL (Negative); Nitrite 2+ (Negative); Protein, Urine (Dipstick) Negative (Neg-Trace); RBC/HPF 0-3 HPF (0-3); Squamous Epithelial 0-3 HPF (0-3); pH, Urine 6.5 (5.0-9.0)
[2020-08-10] MEDS ORDERED: Ketorolac Tromethamine 30 MG/ML VIAL ONE (12:22)
[2020-08-10] MEDS ORDERED: Azithromycin 250 MG TAB ONE (12:54)
[2020-08-10] MEDS ORDERED: Lidocaine 1% PF 5 ML VIAL ONE (12:54)
[2020-08-10] MEDS ORDERED: cefTRIAXone\\ROCEPHIN 250 MG VIAL ONE (12:54)
[2020-08-12 18:59] LABS: Chlamydia by PCR Not Detected (NotDetected); GC by PCR Not Detected (NotDetected)
== END 2020-08-10 13:15 | disposition home or self-care (01) ==
LOC: ERS 10:04
DX: N39.0 Urinary tract infection, site not specified (principal); Z20.2 Contact with and (suspected) exposure to infections with a predominantly sexual mode of transmission; Z86.73 Personal history of transient ischemic attack (TIA), and cerebral infarction without residual deficits; K21.9 Gastro-esophageal reflux disease without esophagitis; J44.9 Chronic obstructive pulmonary disease, unspecified; I10 Essential (primary) hypertension; F41.9 Anxiety disorder, unspecified; F32.9 Major depressive disorder, single episode, unspecified; F17.210 Nicotine dependence, cigarettes, uncomplicated; Z79.82 Long term (current) use of aspirin; Z79.51 Long term (current) use of inhaled steroids; Z79.899 Other long term (current) drug therapy
CPT/HCPCS: 81003; 81015; 87077; 87086; 87186; 87480; 87491; 87510; 87591; 87660; 96372; 99283; J0696; J1885

== ENCOUNTER 2021-04-01 19:54 | Inpatient (IN) | payer OTHER ==
[2021-04-01] MEDS ORDERED: cefTRIAXone\\ROCEPHIN 2 GM VIAL ONE (21:01)
[2021-04-01] MEDS ORDERED: methylPREDNISolone Sod Succ/PF 125 MG/2 ML VIAL ONE (21:01)
[2021-04-01] MEDS ORDERED: Azithromycin 500 MG VIAL ONE (21:01)
[2021-04-01] MEDS ORDERED: Albuterol 200 PUFF (6.7GM INHALER) ONE (21:29)
[2021-04-01 21:33] LABS: ALT (SGPT) 41 U/L (8-55); AST (SGOT) 39 U/L (5-34); Albumin 3.4 g/dL (3.5-5.0); Alkaline Phosphatase 100 U/L (40-110); Anion Gap 12 mmol/L (10-20); BUN (Urea Nitrogen) 7 mg/dL (9.8-20.1); Bilirubin, Total 0.2 mg/dL (0.2-1.2); Calc. Creatinine Clearance 0 mL/min (70-130); Calcium 8.5 mg/dL (7.8-10.44); Carbon Dioxide 26 mmol/L (22-29); Chloride 104 mmol/L (98-107); Globulin 3.9 g/dL (2.4-3.5); Glucose 109 mg/dL (70-105); Potassium 3.5 mmol/L (3.5-5.1); Protein, Total 7.3 g/dL (6.0-8.3); Sodium 138 mmol/L (136-145)
[2021-04-01 21:45] LABS: Hemoglobin 15.1 g/dL (12.0-16.0); Mean Corpuscular HGB CONC 33.6 g/dL (32.0-36.0); Mean Corpuscular Hemoglobin 34.7 pg (27.0-31.0); RBC Distribution Width 12.3 % (11.5-14.5); Red Blood Cell (RBC) Count 4.36 mill/uL (4.20-5.40)
[2021-04-01 21:47] LABS: SARS-CoV-2 NAA Rapid Test DETECTED (NotDetected)
[2021-04-01 22:09] LABS: Band 9 % (5-11); Lymphocytes 63 % (21-51); MDiff Complete? YES; Macrocytosis SLIGHT = 6-15 cells (100X) (0-5/hpf); Mean Platelet Volume 7.6 fL (7.4-10.4); Monocytes 5 % (0-10); Neutrophil 23 % (42-75); Platelet Count 170 thou/uL (130-400); White Blood Cell (WBC) Count 3.4 thou/uL (4.8-10.8)
[2021-04-02] MEDS ORDERED: Ondansetron ODT 4 MG TAB PO PRN ×2 (00:36→00:38)
[2021-04-02] MEDS ORDERED: Ondansetron PF 4 MG/2 ML Vial IVP PRN (00:38)
[2021-04-02] MEDS ORDERED: Bisacodyl 5 MG TAB PO PRN (00:38)
[2021-04-02] MEDS ORDERED: Calcium Carbonate 500 MG ChewTAB PO PRN (00:38)
[2021-04-02] MEDS ORDERED: Acetaminophen 650 MG Suppository PR PRN (00:38)
[2021-04-02] MEDS ORDERED: Albuterol 200 PUFF (6.7GM INHALER) INH PRN (00:38)
[2021-04-02] MEDS ORDERED: Bisacodyl 10 MG SUPP PR PRN (00:38)
[2021-04-02 00:50] VITALS: BMI 36.9
[2021-04-02] MEDS ORDERED: Ibuprofen 800 MG TAB PO PRN (01:04)
[2021-04-02] MEDS: Benzonatate 100 MG CAP PO PRN ×2 (05:45→21:19)
[2021-04-02] MEDS: Senokot S 8.6-50 MG TAB PO PRN ×2 (05:46→21:17)
[2021-04-02] MEDS: GUAIFENESIN SF SOLN 200 MG/10 ML UDCUP PO PRN ×2 (06:04→21:31)
[2021-04-02 06:14] LABS: #Lymphocytes 1.2 thou/uL (1.20-3.40); #Monocytes 0.2 thou/uL (0.11-0.59); #Neutrophils 1.7 thou/uL (1.40-6.50); %Basophils 0.8 % (0.0-1.0); %Eosinophils 0.1 % (0.0-10.0); %Monocytes 5.8 % (0.0-10.0); %Neutrophils 54.3 % (42.0-75.0); Hemoglobin 14.2 g/dL (12.0-16.0); Mean Corpuscular HGB CONC 31.8 g/dL (32.0-36.0); Mean Corpuscular Hemoglobin 32.9 pg (27.0-31.0); Mean Platelet Volume 7.5 fL (7.4-10.4); Platelet Count 162 thou/uL (130-400); RBC Distribution Width 12.3 % (11.5-14.5); Red Blood Cell (RBC) Count 4.31 mill/uL (4.20-5.40); White Blood Cell (WBC) Count 3.1 thou/uL (4.8-10.8)
[2021-04-02 06:56] LABS: Amphetamine Not Detected (NotDetected); Barbiturates Screen Not Detected (NotDetected); Benzodiazepine Screen Not Detected (NotDetected); Cocaine Metabolite Screen Detected (NotDetected); Medtox Control Line Valid? VALID (VALID); Medtox Reader # READER 4; Methadone Not Detected (NotDetected); Methamphetamine Not Detected (NotDetected); Opiate Screen Not Detected (NotDetected); Oxycodone Screen Not Detected (NotDetected); Phencyclidine (PCP) Not Detected (NotDetected); THC/Cannabinoid Screen Not Detected (NotDetected); Tricyclic Screen Not Detected (NotDetected)
[2021-04-02 08:14] LABS: HIV (1/2) Antibody/Antigen Non-Reactive (NonReactive); HIV 1/2 INDEX 0.15 S/CO (<1.00)
[2021-04-02 08:22] LABS: Syphilis Antibody Index 14.73 S/CO (<1.00 Non-Reactive)
[2021-04-02] MEDS: Aspirin 81 mg Enteric Coated Tablet PO SCH (08:37)
[2021-04-02] MEDS: Dexamethasone 4 MG TAB PO SCH (08:38)
[2021-04-02] MEDS: carBAMazepine 200 MG TAB PO SCH ×2 (08:38→18:33)
[2021-04-02] MEDS: Nicotine 21 MG PATCH TD SCH ×2 (08:38→08:49)
[2021-04-02] MEDS: Enoxaparin Sodium 40 MG/0.4 ML SYRINGE SC SCH (08:38)
[2021-04-02] MEDS ORDERED: Metoprolol Tartrate 25 MG TAB PO SCH (09:00)
[2021-04-02 10:14] LABS: Syphilis Antibody INDETERMINATE (Nonreactive)
[2021-04-02 17:11] LABS: Hep C IgG Ab Non-Reactive (NonReactive); Hep C Index 0.07 S/CO (0-0.79)
[2021-04-02] MEDS ORDERED: Atorvastatin Calcium 40 MG TAB PO SCH (21:00)
[2021-04-02] MEDS: Acetaminophen 325 MG TAB PO PRN (21:20)
[2021-04-03] MEDS: GUAIFENESIN SF SOLN 200 MG/10 ML UDCUP PO PRN (02:14)
[2021-04-03] MEDS: Dexamethasone 4 MG TAB PO SCH (08:22)
[2021-04-03] MEDS: Nicotine 21 MG PATCH TD SCH (08:23)
[2021-04-03] MEDS: carBAMazepine 200 MG TAB PO SCH (08:23)
[2021-04-03] MEDS: Aspirin 81 mg Enteric Coated Tablet PO SCH (08:23)
[2021-04-03] MEDS: Enoxaparin Sodium 40 MG/0.4 ML SYRINGE SC SCH (08:23)
[2021-04-03] MEDS: Acetaminophen 325 MG TAB PO PRN (08:30)
[2021-04-03 09:18] LABS: Bacteria/HPF None Seen HPF (None Seen); Bilirubin Negative (Negative); Blood, Urine Negative (Negative); Clarity Clear (Clear); Glucose, Urine (Dipstick) Normal (Negative); Ketone, Urine Negative (Negative); Leukocyte Negative Leu/uL (Negative); Nitrite Negative (Negative); Protein, Urine (Dipstick) Negative (Neg-Trace); RBC/HPF 0-3 HPF (0-3); Specific Gravity, Urine 1.016 (1.002-1.036); Urobilinogen Normal mg/dL (Less than 2); WBC/HPF 0-3 HPF (0-3)
[2021-04-03 09:21] LABS: Urine Culture Reflex No No
[2021-04-03 12:08] VITALS: BP 129/71; TEMP 98.3
[2021-04-03 13:41] LABS: Hematocrit 42.5 % (34.0-46.6); RBC Folate Test Component 866 ng/mL (>498)
[2021-04-04 14:38] LABS: HBV as IU/mL 250 IU/mL (.); Log 10 HBV as IU/mL 2.398 (.)
[2021-04-04 18:20] LABS: Chlam.trachomatis by PCR,Urine Not Detected (NotDetected)
== END 2021-04-03 13:21 | disposition home or self-care (01) | DRG 871 ==
LOC: ERS 19:54 → T4-B 23:29 → INTOOBSV 23:29 → OBSVTOIN 23:29
PROVIDERS: ADMIT Family Medicine; ATTEND Family Medicine
DX: A41.9 Sepsis, unspecified organism (principal); U07.1 COVID-19; J12.82 Pneumonia due to coronavirus disease 2019; I50.32 Chronic diastolic (congestive) heart failure; J44.9 Chronic obstructive pulmonary disease, unspecified; G40.909 Epilepsy, unspecified, not intractable, without status epilepticus; Z95.0 Presence of cardiac pacemaker; Z88.5 Allergy status to narcotic agent; Z79.82 Long term (current) use of aspirin; I11.0 Hypertensive heart disease with heart failure; Z86.19 Personal history of other infectious and parasitic diseases; Z90.710 Acquired absence of both cervix and uterus; Z83.3 Family history of diabetes mellitus; Z82.49 Family history of ischemic heart disease and other diseases of the circulatory system; F17.210 Nicotine dependence, cigarettes, uncomplicated; F14.10 Cocaine abuse, uncomplicated; K21.9 Gastro-esophageal reflux disease without esophagitis; G70.00 Myasthenia gravis without (acute) exacerbation
CPT/HCPCS: 0240U; 36415; 71045; 71275; 80053; 80306; 81001; 82607; 82747; 83605; 83880; 84145; 84484; 85025; 85379; 86593; 86780; 86803; 87040; 87086; 87389; 87491; 87517; 87591; 93005; 96365; 96367; 96372; 96375; G0378; J0456; J0696; J1650; J2930; J8540

== ENCOUNTER 2021-09-19 11:18 | Emergency (ER) | payer OTHER ==
[2021-09-19 12:16] LABS: #Eosinphils 0.2 thou/uL (0.0-0.7); #Lymphocytes 1.9 thou/uL (1.20-3.40); #Monocytes 0.5 thou/uL (0.11-0.59); #Neutrophils 3.6 thou/uL (1.40-6.50); %Basophils 0.1 % (0.0-1.0); %Eosinophils 3.1 % (0.0-10.0); %Lymphocytes 31.2 % (21.0-51.0); %Monocytes 7.8 % (0.0-10.0); %Neutrophils 57.7 % (42.0-75.0); Hemoglobin 14.4 g/dL (12.0-16.0); Mean Corpuscular HGB CONC 32.7 g/dL (32.0-36.0); Mean Corpuscular Hemoglobin 33.7 pg (27.0-31.0); Mean Platelet Volume 6.8 fL (7.4-10.4); Platelet Count 261 thou/uL (130-400); RBC Distribution Width 12.8 % (11.5-14.5); Red Blood Cell (RBC) Count 4.27 mill/uL (4.20-5.40); White Blood Cell (WBC) Count 6.2 thou/uL (4.8-10.8)
[2021-09-19 12:38] LABS: ALT (SGPT) 23 U/L (8-55); AST (SGOT) 25 U/L (5-34); Albumin 3.5 g/dL (3.5-5.0); Alkaline Phosphatase 99 U/L (40-110); Anion Gap 13 mmol/L (10-20); BUN (Urea Nitrogen) 15 mg/dL (9.8-20.1); Bilirubin, Total 0.4 mg/dL (0.2-1.2); Calc. Creatinine Clearance 0 mL/min (70-130); Calcium 9.3 mg/dL (7.8-10.44); Carbon Dioxide 22 mmol/L (22-29); Chloride 109 mmol/L (98-107); Globulin 3.6 g/dL (2.4-3.5); Glucose 109 mg/dL (70-105); Potassium 4.1 mmol/L (3.5-5.1); Protein, Total 7.1 g/dL (6.0-8.3); Sodium 140 mmol/L (136-145)
[2021-09-19] MEDS ORDERED: Ketorolac Tromethamine 30 MG/ML VIAL ONE (15:12)
== END 2021-09-19 16:24 | disposition home or self-care (01) ==
LOC: ERS 11:18
DX: R07.9 Chest pain, unspecified (principal); Z79.899 Other long term (current) drug therapy; J44.9 Chronic obstructive pulmonary disease, unspecified; I50.9 Heart failure, unspecified; K21.9 Gastro-esophageal reflux disease without esophagitis; I11.0 Hypertensive heart disease with heart failure; F17.210 Nicotine dependence, cigarettes, uncomplicated; Z86.16 Personal history of COVID-19
CPT/HCPCS: 36415; 71045; 71275; 80053; 84484; 85025; 93005; 94760; 96374; J1885

== ENCOUNTER 2021-09-27 13:59 | Emergency (ER) | payer OTHER ==
[2021-09-27 14:53] LABS: #Basophils 0.1 thou/uL (0.0-0.2); #Eosinphils 0.3 thou/uL (0.0-0.7); #Lymphocytes 2.2 thou/uL (1.20-3.40); #Monocytes 0.4 thou/uL (0.11-0.59); #Neutrophils 3.2 thou/uL (1.40-6.50); %Basophils 0.9 % (0.0-1.0); %Eosinophils 4.5 % (0.0-10.0); %Lymphocytes 36.4 % (21.0-51.0); %Monocytes 6.3 % (0.0-10.0); %Neutrophils 51.9 % (42.0-75.0); Hemoglobin 14.5 g/dL (12.0-16.0); Mean Corpuscular HGB CONC 34.4 g/dL (32.0-36.0); Mean Corpuscular Hemoglobin 35.6 pg (27.0-31.0); Mean Platelet Volume 6.9 fL (7.4-10.4); Platelet Count 263 thou/uL (130-400); Red Blood Cell (RBC) Count 4.08 mill/uL (4.20-5.40); White Blood Cell (WBC) Count 6.1 thou/uL (4.8-10.8)
[2021-09-27 15:04] LABS: ALT (SGPT) 20 U/L (8-55); AST (SGOT) 19 U/L (5-34); Albumin 3.4 g/dL (3.5-5.0); Alkaline Phosphatase 96 U/L (40-110); Anion Gap 13 mmol/L (10-20); BUN (Urea Nitrogen) 14 mg/dL (9.8-20.1); Bilirubin, Total 0.2 mg/dL (0.2-1.2); Calc. Creatinine Clearance 0 mL/min (70-130); Calcium 9.3 mg/dL (7.8-10.44); Carbon Dioxide 23 mmol/L (22-29); Chloride 110 mmol/L (98-107); Globulin 3.7 g/dL (2.4-3.5); Glucose 98 mg/dL (70-105); Potassium 4.1 mmol/L (3.5-5.1); Protein, Total 7.1 g/dL (6.0-8.3); Sodium 142 mmol/L (136-145)
[2021-09-27 15:05] LABS: Acetaminophen Less than 6.0 mcg/mL (10.0-30.0); Alcohol Less than 10 mg/dL (Less than 10); Salicylate Less than 8.0 mg/dL (15.0-30.0)
== END 2021-09-27 16:45 | disposition home or self-care (01) ==
LOC: ERS 13:59
DX: G56.22 Lesion of ulnar nerve, left upper limb (principal); G54.0 Brachial plexus disorders; J44.9 Chronic obstructive pulmonary disease, unspecified; I11.0 Hypertensive heart disease with heart failure; I50.9 Heart failure, unspecified; F17.210 Nicotine dependence, cigarettes, uncomplicated; Z86.73 Personal history of transient ischemic attack (TIA), and cerebral infarction without residual deficits; Z79.899 Other long term (current) drug therapy
CPT/HCPCS: 36415; 70450; 71045; 72125; 80053; 80307; 84484; 85025; 93005

== ENCOUNTER 2021-10-02 11:17 | Emergency (ER) | payer OTHER ==
[2021-10-02 12:08] LABS: Bilirubin Negative (Negative); Blood, Urine Negative (Negative); Clarity Clear (Clear); Glucose, Urine (Dipstick) Normal (Negative); Ketone, Urine Negative (Negative); Leukocyte Negative Leu/uL (Negative); Nitrite Negative (Negative); Protein, Urine (Dipstick) Negative (Neg-Trace)
[2021-10-02 13:46] LABS: Hemoglobin 15.5 g/dL (12.0-16.0); Mean Corpuscular HGB CONC 32.9 g/dL (32.0-36.0); Mean Corpuscular Hemoglobin 34.6 pg (27.0-31.0); Mean Platelet Volume 6.9 fL (7.4-10.4); Platelet Count 189 thou/uL (130-400); RBC Distribution Width 12.9 % (11.5-14.5); Red Blood Cell (RBC) Count 4.47 mill/uL (4.20-5.40); White Blood Cell (WBC) Count 5.7 thou/uL (4.8-10.8)
[2021-10-02 13:55] LABS: #Eosinphils 0.1 thou/uL (0.0-0.7); #Lymphocytes 1.4 thou/uL (1.20-3.40); #Monocytes 0.4 thou/uL (0.11-0.59); #Neutrophils 3.8 thou/uL (1.40-6.50); %Basophils 0.1 % (0.0-1.0); %Eosinophils 2.2 % (0.0-10.0); %Lymphocytes 24.4 % (21.0-51.0); %Monocytes 7.2 % (0.0-10.0); %Neutrophils 66.1 % (42.0-75.0)
[2021-10-02 13:59] LABS: MDiff Complete? YES; Macrocytosis SLIGHT = 6-15 cells (100X) (0-5/hpf); Platelet Morphology Comment Appears Adequate
[2021-10-02 14:16] LABS: ALT (SGPT) 18 U/L (8-55); AST (SGOT) 19 U/L (5-34); Albumin 3.4 g/dL (3.5-5.0); Alkaline Phosphatase 96 U/L (40-110); Anion Gap 13 mmol/L (10-20); BUN (Urea Nitrogen) 12 mg/dL (9.8-20.1); Bilirubin, Total 0.3 mg/dL (0.2-1.2); Calc. Creatinine Clearance 0 mL/min (70-130); Calcium 8.8 mg/dL (7.8-10.44); Carbon Dioxide 21 mmol/L (22-29); Chloride 109 mmol/L (98-107); Globulin 3.6 g/dL (2.4-3.5); Glucose 128 mg/dL (70-105); Potassium 4.2 mmol/L (3.5-5.1); Sodium 139 mmol/L (136-145)
[2021-10-02] MEDS ORDERED: HYDROcodone/Acetaminophen 5/325 mg Tablet ONE (15:10)
== END 2021-10-02 15:14 | disposition home or self-care (01) ==
LOC: ERS 11:17
DX: R20.2 Paresthesia of skin (principal); I49.9 Cardiac arrhythmia, unspecified; J44.9 Chronic obstructive pulmonary disease, unspecified; I11.0 Hypertensive heart disease with heart failure; I50.9 Heart failure, unspecified; K21.9 Gastro-esophageal reflux disease without esophagitis; G70.00 Myasthenia gravis without (acute) exacerbation; F17.210 Nicotine dependence, cigarettes, uncomplicated; Z86.73 Personal history of transient ischemic attack (TIA), and cerebral infarction without residual deficits; Z79.899 Other long term (current) drug therapy
CPT/HCPCS: 36415; 70450; 80053; 81003; 85025

== ENCOUNTER 2022-01-05 07:47 | Emergency (ER) | payer OTHER ==
[2022-01-05 08:33] LABS: #Eosinphils 0.2 thou/uL (0.0-0.7); #Lymphocytes 1.5 thou/uL (1.20-3.40); #Monocytes 0.5 thou/uL (0.11-0.59); #Neutrophils 5.9 thou/uL (1.40-6.50); %Lymphocytes 18.7 % (21.0-51.0); %Monocytes 6.4 % (0.0-10.0); %Neutrophils 72.8 % (42.0-75.0); Hemoglobin 15.6 g/dL (12.0-16.0); Mean Corpuscular HGB CONC 32.6 g/dL (32.0-36.0); Mean Corpuscular Hemoglobin 34.7 pg (27.0-31.0); Mean Platelet Volume 6.8 fL (7.4-10.4); Platelet Count 241 thou/uL (130-400); RBC Distribution Width 12.3 % (11.5-14.5); Red Blood Cell (RBC) Count 4.49 mill/uL (4.20-5.40); White Blood Cell (WBC) Count 8.2 thou/uL (4.8-10.8)
[2022-01-05 08:50] LABS: MDiff Complete? YES; Macrocytosis SLIGHT = 6-15 cells (100X) (0-5/hpf); Platelet Morphology Comment Appears Adequate
[2022-01-05 08:53] LABS: ALT (SGPT) 27 U/L (8-55); AST (SGOT) 20 U/L (5-34); Albumin 3.6 g/dL (3.5-5.0); Alkaline Phosphatase 96 U/L (40-110); Anion Gap 8 mmol/L (10-20); BUN (Urea Nitrogen) 10 mg/dL (9.8-20.1); Bilirubin, Total 0.5 mg/dL (0.2-1.2); Calc. Creatinine Clearance 0 mL/min (70-130); Calcium 9.1 mg/dL (7.8-10.44); Carbon Dioxide 27 mmol/L (22-29); Chloride 107 mmol/L (98-107); Globulin 3.6 g/dL (2.4-3.5); Glucose 117 mg/dL (70-105); Lipase 18 U/L (8-78); Potassium 3.8 mmol/L (3.5-5.1); Protein, Total 7.2 g/dL (6.0-8.3); Sodium 138 mmol/L (136-145)
== END 2022-01-05 11:18 | disposition home or self-care (01) ==
LOC: ERS 07:47
DX: R10.13 Epigastric pain (principal); K59.00 Constipation, unspecified; F17.210 Nicotine dependence, cigarettes, uncomplicated; K21.9 Gastro-esophageal reflux disease without esophagitis; I11.0 Hypertensive heart disease with heart failure; I50.9 Heart failure, unspecified; J44.9 Chronic obstructive pulmonary disease, unspecified; G70.00 Myasthenia gravis without (acute) exacerbation; Z86.73 Personal history of transient ischemic attack (TIA), and cerebral infarction without residual deficits; Z95.0 Presence of cardiac pacemaker; Z87.19 Personal history of other diseases of the digestive system; Z79.899 Other long term (current) drug therapy
CPT/HCPCS: 36415; 71045; 80053; 83690; 84484; 85025; 93005

== ENCOUNTER 2022-04-12 13:35 | Inpatient (IN) | payer OTHER ==
[2022-04-12 14:24] LABS: #Eosinphils 0.2 thou/uL (0.0-0.7); #Lymphocytes 1.6 thou/uL (1.20-3.40); #Monocytes 0.4 thou/uL (0.11-0.59); %Basophils 0.7 % (0.0-1.0); %Eosinophils 3.3 % (0.0-10.0); %Monocytes 7.6 % (0.0-10.0); %Neutrophils 57.5 % (42.0-75.0); Hemoglobin 13.3 g/dL (12.0-16.0); Mean Corpuscular Hemoglobin 33.8 pg (27.0-31.0); Mean Platelet Volume 6.5 fL (7.4-10.4); Platelet Count 244 thou/uL (130-400); RBC Distribution Width 12.9 % (11.5-14.5); Red Blood Cell (RBC) Count 3.94 mill/uL (4.20-5.40); White Blood Cell (WBC) Count 5.1 thou/uL (4.8-10.8)
[2022-04-12 14:36] LABS: MDiff Complete? YES; Macrocytosis SLIGHT = 6-15 cells (100X) (0-5/hpf); Platelet Morphology Comment Appears Adequate
[2022-04-12 14:44] LABS: ALT (SGPT) 17 U/L (8-55); AST (SGOT) 16 U/L (5-34); Albumin 3.1 g/dL (3.5-5.0); Alkaline Phosphatase 90 U/L (40-110); Anion Gap 8 mmol/L (10-20); BUN (Urea Nitrogen) 12 mg/dL (9.8-20.1); Bilirubin, Total 0.2 mg/dL (0.2-1.2); Calc. Creatinine Clearance 0 mL/min (70-130); Calcium 8.7 mg/dL (7.8-10.44); Carbon Dioxide 26 mmol/L (22-29); Chloride 111 mmol/L (98-107); Globulin 3.2 g/dL (2.4-3.5); Glucose 105 mg/dL (70-105); Potassium 3.4 mmol/L (3.5-5.1); Protein, Total 6.3 g/dL (6.0-8.3); Sodium 142 mmol/L (136-145)
[2022-04-12] MEDS ORDERED: HYDROcodone/Acetaminophen 5/325 mg Tablet ONE (15:27)
[2022-04-12] MEDS ORDERED: Azithromycin 250 MG TAB ONE (17:37)
[2022-04-12] MEDS ORDERED: cefTRIAXone\\ROCEPHIN 500 MG VIAL ONE (17:37)
[2022-04-12] MEDS ORDERED: Enoxaparin Sodium 100 MG/ML SYRINGE ONE (17:37)
[2022-04-12 19:00] VITALS: BMI 37.4
[2022-04-12] MEDS ORDERED: Guaifenesin DM 100-10/5 ML UDCUP PO PRN (20:02)
[2022-04-12] MEDS ORDERED: Benzonatate 100 MG CAP PO PRN (20:13)
[2022-04-12] MEDS ORDERED: Warfarin Sodium 5 MG TAB PO SCH ×2 (20:15→22:15)
[2022-04-12] MEDS: Atorvastatin Calcium 40 MG TAB PO SCH (21:09)
[2022-04-12] MEDS: carBAMazepine 200 MG TAB PO SCH (21:09)
[2022-04-12] MEDS: Nicotine 14 MG PATCH TD SCH (21:09)
[2022-04-12 21:25] LABS: INR-International Normal Ratio 0.9; PTT 36.1 sec (22.9-36.1); Prothrombin Time 12.6 sec (12.0-14.7)
[2022-04-12] MEDS: Metoprolol Tartrate 25 MG TAB PO SCH (21:26)
[2022-04-12] MEDS ORDERED: Metoprolol Tartrate 25 MG TAB PO SCH (21:30)
[2022-04-12 21:50] LABS: Bacteria/HPF None Seen HPF (None Seen); Bilirubin Negative (Negative); Blood, Urine Negative (Negative); Clarity Clear (Clear); Glucose, Urine (Dipstick) Normal (Negative); Ketone, Urine Negative (Negative); Leukocyte Negative Leu/uL (Negative); Nitrite Negative (Negative); Protein, Urine (Dipstick) Negative (Neg-Trace); RBC/HPF 0-3 HPF (0-3); Specific Gravity, Urine 1.016 (1.002-1.036); Squamous Epithelial 0-3 HPF (0-3); WBC/HPF 0-3 HPF (0-3); pH, Urine 7.5 (5.0-9.0)
[2022-04-12 22:03] LABS: Urine Culture Reflex No No
[2022-04-12] MEDS ORDERED: Acetaminophen 325 MG TAB PO SCH (22:30)
[2022-04-12] MEDS ORDERED: Cyclobenzaprine 10 MG TAB PO SCH (22:30)
[2022-04-12] MEDS ORDERED: Warfarin Sodium 10 MG TAB PO SCH (22:30)
[2022-04-12] MEDS: traZODone HCl 50 MG TAB PO SCH (22:41)
[2022-04-12] MEDS: Melatonin 3 MG TAB PO SCH (22:42)
[2022-04-13 05:23] LABS: Prothrombin Time 13.3 sec (12.0-14.7)
[2022-04-13] MEDS: Acetaminophen 325 MG TAB PO SCH ×4 (05:33→23:14)
[2022-04-13] MEDS: Aspirin 81 mg Enteric Coated Tablet PO SCH (08:57)
[2022-04-13] MEDS: Furosemide 20 MG TAB PO SCH (08:57)
[2022-04-13] MEDS: Enoxaparin Sodium 100 MG/ML SYRINGE SC SCH ×2 (08:57→21:09)
[2022-04-13] MEDS: carBAMazepine 200 MG TAB PO SCH (08:57)
[2022-04-13] MEDS: Metoprolol Tartrate 25 MG TAB PO SCH ×2 (08:57→17:17)
[2022-04-13] MEDS: Cyclobenzaprine 10 MG TAB PO PRN ×2 (11:50→19:50)
[2022-04-13] MEDS ORDERED: levETIRAcetam 500 MG TAB PO SCH (12:00)
[2022-04-13] MEDS ORDERED: Warfarin Sodium 10 MG TAB PO SCH ×2 (17:00)
[2022-04-13] MEDS ORDERED: Warfarin Sodium 5 MG TAB PO SCH (17:00)
[2022-04-13 18:02] LABS: SARS-CoV-2 PCR by NAA Not Detected (NotDetected)
[2022-04-13] MEDS: Atorvastatin Calcium 40 MG TAB PO SCH (21:09)
[2022-04-13] MEDS: Nicotine 14 MG PATCH TD SCH (21:10)
[2022-04-13] MEDS: Melatonin 3 MG TAB PO SCH (21:39)
[2022-04-13] MEDS: traZODone HCl 50 MG TAB PO SCH (21:39)
[2022-04-14] MEDS: Acetaminophen 325 MG TAB PO SCH ×3 (05:41→17:48)
[2022-04-14] MEDS: Cyclobenzaprine 10 MG TAB PO PRN ×3 (05:42→17:48)
[2022-04-14 07:55] LABS: ALT (SGPT) 16 U/L (8-55); AST (SGOT) 16 U/L (5-34); Albumin 2.8 g/dL (3.5-5.0); Alkaline Phosphatase 74 U/L (40-110); Anion Gap 8 mmol/L (10-20); BUN (Urea Nitrogen) 8 mg/dL (9.8-20.1); Bilirubin, Total 0.2 mg/dL (0.2-1.2); Calc. Creatinine Clearance 140 mL/min (70-130); Calcium 8.4 mg/dL (7.8-10.44); Carbon Dioxide 29 mmol/L (22-29); Chloride 108 mmol/L (98-107); Globulin 3.1 g/dL (2.4-3.5); Glucose 113 mg/dL (70-105); Magnesium 1.7 mg/dL (1.6-2.6); Potassium 3.8 mmol/L (3.5-5.1); Protein, Total 5.9 g/dL (6.0-8.3); Sodium 141 mmol/L (136-145)
[2022-04-14 07:59] LABS: #Basophils 0.1 thou/uL (0.0-0.2); #Eosinphils 0.2 thou/uL (0.0-0.7); #Lymphocytes 1.7 thou/uL (1.20-3.40); #Monocytes 0.4 thou/uL (0.11-0.59); #Neutrophils 1.3 thou/uL (1.40-6.50); %Eosinophils 6.3 % (0.0-10.0); %Lymphocytes 45.3 % (21.0-51.0); %Monocytes 9.8 % (0.0-10.0); %Neutrophils 36.6 % (42.0-75.0); Hemoglobin 13.3 g/dL (12.0-16.0); Mean Corpuscular HGB CONC 31.6 g/dL (32.0-36.0); Mean Corpuscular Hemoglobin 33.1 pg (27.0-31.0); Mean Platelet Volume 7.6 fL (7.4-10.4); Platelet Count 262 thou/uL (130-400); Platelet Morphology Comment Appears Adequate; RBC Distribution Width 15.6 % (11.5-14.5); White Blood Cell (WBC) Count 3.6 thou/uL (4.8-10.8)
[2022-04-14] MEDS: Enoxaparin Sodium 100 MG/ML SYRINGE SC SCH (08:25)
[2022-04-14] MEDS: Aspirin 81 mg Enteric Coated Tablet PO SCH (08:25)
[2022-04-14] MEDS: Furosemide 20 MG TAB PO SCH (08:25)
[2022-04-14] MEDS: Metoprolol Tartrate 25 MG TAB PO SCH ×2 (08:26→17:48)
[2022-04-14] MEDS: levETIRAcetam 500 MG TAB PO SCH ×2 (08:26→20:41)
[2022-04-14] MEDS ORDERED: Polyethylene Glycol 3350 17 GM Packet PO SCH (11:00)
[2022-04-14 16:46] LABS: Carbamazepine-Tegretol 3.8 ug/mL (4.0-12.0)
[2022-04-14] MEDS: Nicotine 14 MG PATCH TD SCH (20:36)
[2022-04-14] MEDS: Apixaban 5 MG TAB PO SCH (20:37)
[2022-04-14] MEDS: Atorvastatin Calcium 40 MG TAB PO SCH (20:38)
[2022-04-14] MEDS: Melatonin 3 MG TAB PO SCH (20:40)
[2022-04-14] MEDS: traZODone HCl 50 MG TAB PO SCH (20:40)
[2022-04-14] MEDS: levETIRAcetam 500 mg/5 ml Oral Solution PO SCH (21:22)
[2022-04-15] MEDS: Acetaminophen 325 MG TAB PO SCH ×3 (01:30→12:12)
[2022-04-15 06:01] VITALS: TEMP 97.5
[2022-04-15] MEDS: levETIRAcetam 500 mg/5 ml Oral Solution PO SCH (09:00)
[2022-04-15] MEDS ORDERED: Senokot S 8.6-50 MG TAB PO SCH (09:00)
[2022-04-15] MEDS ORDERED: Polyethylene Glycol 3350 17 GM Packet PO SCH (09:00)
[2022-04-15] MEDS: Cyclobenzaprine 10 MG TAB PO PRN (09:01)
[2022-04-15] MEDS: Apixaban 5 MG TAB PO SCH (09:03)
[2022-04-15] MEDS: Furosemide 20 MG TAB PO SCH (09:03)
[2022-04-15] MEDS: Aspirin 81 mg Enteric Coated Tablet PO SCH (09:03)
[2022-04-15] MEDS: Metoprolol Tartrate 25 MG TAB PO SCH (09:04)
[2022-04-15 10:32] LABS: ALT (SGPT) 20 U/L (8-55); AST (SGOT) 21 U/L (5-34); Albumin 3.1 g/dL (3.5-5.0); Alkaline Phosphatase 87 U/L (40-110); Anion Gap 13 mmol/L (10-20); BUN (Urea Nitrogen) 10 mg/dL (9.8-20.1); Bilirubin, Total 0.2 mg/dL (0.2-1.2); Calc. Creatinine Clearance 118 mL/min (70-130); Calcium 8.8 mg/dL (7.8-10.44); Carbon Dioxide 23 mmol/L (22-29); Chloride 108 mmol/L (98-107); Globulin 3.7 g/dL (2.4-3.5); Glucose 84 mg/dL (70-105); Protein, Total 6.8 g/dL (6.0-8.3); Sodium 140 mmol/L (136-145)
[2022-04-15 11:27] VITALS: BP 116/67
== END 2022-04-15 14:18 | disposition home or self-care (01) | DRG 300 ==
LOC: ERS 13:35 → 2SW 17:23 → OBSVTOIN 04-13 14:53
PROVIDERS: ADMIT Family Medicine; ATTEND Family Medicine
DX: I82.411 Acute embolism and thrombosis of right femoral vein (principal); B18.1 Chronic viral hepatitis B without delta-agent; Z20.822 Contact with and (suspected) exposure to COVID-19; A74.9 Chlamydial infection, unspecified; G40.909 Epilepsy, unspecified, not intractable, without status epilepticus; F17.210 Nicotine dependence, cigarettes, uncomplicated; I11.0 Hypertensive heart disease with heart failure; I50.9 Heart failure, unspecified; J45.909 Unspecified asthma, uncomplicated; E89.0 Postprocedural hypothyroidism; J44.9 Chronic obstructive pulmonary disease, unspecified; F14.90 Cocaine use, unspecified, uncomplicated; K21.9 Gastro-esophageal reflux disease without esophagitis; F41.9 Anxiety disorder, unspecified; F32.A Depression, unspecified; G70.00 Myasthenia gravis without (acute) exacerbation; Z88.5 Allergy status to narcotic agent; Z86.73 Personal history of transient ischemic attack (TIA), and cerebral infarction without residual deficits; Z88.6 Allergy status to analgesic agent; Z88.8 Allergy status to other drugs, medicaments and biological substances; Z79.899 Other long term (current) drug therapy; Z79.82 Long term (current) use of aspirin; Z95.0 Presence of cardiac pacemaker; Z90.49 Acquired absence of other specified parts of digestive tract; Z90.710 Acquired absence of both cervix and uterus; Z59.00 Homelessness unspecified
CPT/HCPCS: 36415; 70450; 71045; 72131; 80053; 80156; 81001; 83735; 83880; 84484; 85025; 85060; 85610; 85652; 85730; 93005; 94640; J0696; J1650; J7620; U0003; U0005

== ENCOUNTER 2022-07-09 13:41 | Emergency (ER) | payer OTHER ==
[~2022-07-09 13:41] MED LIST changes: +Iopamidol 370 76% 100 ML VIAL ONE; -Iopamidol-370 76% 500 ML 1 ML ONE
[2022-07-09 16:14] LABS: #Eosinphils 0.3 thou/uL (0.0-0.7); #Lymphocytes 2.2 thou/uL (1.20-3.40); #Monocytes 0.4 thou/uL (0.11-0.59); #Neutrophils 2.9 thou/uL (1.40-6.50); %Basophils 0.6 % (0.0-1.0); %Eosinophils 5.3 % (0.0-10.0); %Lymphocytes 38.3 % (21.0-51.0); %Monocytes 6.8 % (0.0-10.0); %Neutrophils 49.1 % (42.0-75.0); Hemoglobin 13.1 g/dL (12.0-16.0); Mean Corpuscular HGB CONC 32.7 g/dL (32.0-36.0); Mean Corpuscular Hemoglobin 34.2 pg (27.0-31.0); Mean Platelet Volume 6.8 fL (7.4-10.4); Platelet Count 266 thou/uL (130-400); RBC Distribution Width 12.5 % (11.5-14.5); Red Blood Cell (RBC) Count 3.82 mill/uL (4.20-5.40); White Blood Cell (WBC) Count 5.9 thou/uL (4.8-10.8)
[2022-07-09] MEDS ORDERED: metroNIDAZOLE 250 MG TAB ONE (16:28)
[2022-07-09] MEDS ORDERED: Bicillin LA 2.4 MILL.UNITS/4 ML SYRINGE ONE (16:32)
[2022-07-09 16:37] LABS: ALT (SGPT) 19 U/L (8-55); AST (SGOT) 20 U/L (5-34); Albumin 3.8 g/dL (3.5-5.0); Alkaline Phosphatase 86 U/L (40-110); Anion Gap 12 mmol/L (10-20); BUN (Urea Nitrogen) 16 mg/dL (9.8-20.1); Bilirubin, Total 0.3 mg/dL (0.2-1.2); Calc. Creatinine Clearance 0 mL/min (70-130); Calcium 9.4 mg/dL (7.8-10.44); Carbon Dioxide 27 mmol/L (22-29); Chloride 105 mmol/L (98-107); Estimated GFR 78; Globulin 3.4 g/dL (2.4-3.5); Glucose 77 mg/dL (70-105); Lipase 59 U/L (8-78); Potassium 3.7 mmol/L (3.5-5.1); Protein, Total 7.2 g/dL (6.0-8.3); Sodium 140 mmol/L (136-145)
[2022-07-09] MEDS ORDERED: Ketorolac Tromethamine 30 MG/ML VIAL ONE (16:49)
[2022-07-09 17:15] LABS: Bacteria/HPF 4+ HPF (None Seen); Bilirubin Negative (Negative); Blood, Urine Negative (Negative); Clarity Clear (Clear); Glucose, Urine (Dipstick) Normal (Negative); Ketone, Urine Negative (Negative); Leukocyte 75 Leu/uL (Negative); Nitrite Negative (Negative); Protein, Urine (Dipstick) Negative (Neg-Trace); RBC/HPF 0-3 HPF (0-3); Specific Gravity, Urine 1.018 (1.002-1.036); Urobilinogen Normal mg/dL (Less than 2); WBC/HPF 21-50 HPF (0-3)
[2022-07-09] MEDS ORDERED: Ondansetron ODT 4 MG TAB ONE (18:27)
[2022-07-09 21:28] LABS: Syphilis Antibody Index 17.71 S/CO (<1.00 Non-Reactive)
[2022-07-09 21:42] LABS: Syphilis Antibody INDETERMINATE (Nonreactive)
== END 2022-07-09 20:03 | disposition home or self-care (01) ==
LOC: ERS 13:41
DX: B19.10 Unspecified viral hepatitis B without hepatic coma (principal); N39.0 Urinary tract infection, site not specified; A53.0 Latent syphilis, unspecified as early or late; A59.9 Trichomoniasis, unspecified; J44.9 Chronic obstructive pulmonary disease, unspecified; K21.9 Gastro-esophageal reflux disease without esophagitis; I11.0 Hypertensive heart disease with heart failure; I50.9 Heart failure, unspecified; Z86.73 Personal history of transient ischemic attack (TIA), and cerebral infarction without residual deficits; F17.210 Nicotine dependence, cigarettes, uncomplicated; R56.9 Unspecified convulsions; Z79.899 Other long term (current) drug therapy; Z79.01 Long term (current) use of anticoagulants; Z79.82 Long term (current) use of aspirin
CPT/HCPCS: 36415; 71045; 74177; 80053; 81003; 81015; 83605; 83690; 83880; 84484; 85025; 86593; 86780; 87077; 87086; 87186; 93005; 96372; 96374; J0561; J1885; Q0162; Q9967

== ENCOUNTER 2022-08-06 10:58 | Inpatient (IN) | payer OTHER ==
[~2022-08-06 10:58] MED LIST changes: -Iopamidol 370 76% 100 ML VIAL ONE; +Iopamidol-370 76% 500 ML 1 ML ONE
[2022-08-06 11:43] LABS: Bacteria/HPF 1+ HPF (None Seen); Bilirubin Negative (Negative); Blood, Urine Trace (Negative); Clarity Clear (Clear); Glucose, Urine (Dipstick) Normal (Negative); Ketone, Urine Negative (Negative); Leukocyte 250 Leu/uL (Negative); Nitrite Negative (Negative); Protein, Urine (Dipstick) Negative (Neg-Trace); RBC/HPF 0-3 HPF (0-3); Specific Gravity, Urine 1.011 (1.002-1.036); Squamous Epithelial 0-3 HPF (0-3); Urobilinogen Normal mg/dL (Less than 2)
[2022-08-06 12:05] LABS: #Basophils 0.1 thou/uL (0.0-0.2); #Eosinphils 0.3 thou/uL (0.0-0.7); #Lymphocytes 1.8 thou/uL (1.20-3.40); #Monocytes 0.4 thou/uL (0.11-0.59); #Neutrophils 2.2 thou/uL (1.40-6.50); %Basophils 1.8 % (0.0-1.0); %Eosinophils 7.2 % (0.0-10.0); %Lymphocytes 36.8 % (21.0-51.0); %Monocytes 8.3 % (0.0-10.0); %Neutrophils 45.8 % (42.0-75.0); Hemoglobin 16.2 g/dL (12.0-16.0); Mean Corpuscular HGB CONC 32.3 g/dL (32.0-36.0); Mean Platelet Volume 6.5 fL (7.4-10.4); Platelet Count 277 thou/uL (130-400); RBC Distribution Width 12.3 % (11.5-14.5); Red Blood Cell (RBC) Count 4.76 mill/uL (4.20-5.40); White Blood Cell (WBC) Count 4.8 thou/uL (4.8-10.8)
[2022-08-06 12:25] LABS: ALT (SGPT) 22 U/L (8-55); AST (SGOT) 18 U/L (5-34); Alkaline Phosphatase 88 U/L (40-110); Anion Gap 12 mmol/L (10-20); BUN (Urea Nitrogen) 13 mg/dL (9.8-20.1); Bilirubin, Total 0.5 mg/dL (0.2-1.2); CK (CPK) 57 U/L (29-168); Calc. Creatinine Clearance 0 mL/min (70-130); Calcium 9.7 mg/dL (7.8-10.44); Carbon Dioxide 26 mmol/L (22-29); Chloride 103 mmol/L (98-107); Estimated GFR 83; Globulin 3.7 g/dL (2.4-3.5); Glucose 100 mg/dL (70-105); Magnesium 2.1 mg/dL (1.6-2.6); Potassium 4.2 mmol/L (3.5-5.1); Protein, Total 7.7 g/dL (6.0-8.3); Sodium 137 mmol/L (136-145)
[2022-08-06] MEDS ORDERED: Ondansetron PF 4 MG/2 ML Vial ONE (12:34)
[2022-08-06] MEDS ORDERED: cefTRIAXone\\ROCEPHIN 2 GM VIAL ONE (14:03)
[2022-08-06] MEDS ORDERED: Ondansetron PF 4 MG/2 ML Vial IVP PRN (14:37)
[2022-08-06] MEDS ORDERED: Ondansetron ODT 4 MG TAB PO PRN (14:37)
[2022-08-06] MEDS ORDERED: Acetaminophen 650 MG Suppository PR PRN (14:37)
[2022-08-06] MEDS ORDERED: Aspirin 81 mg Enteric Coated Tablet PO SCH (15:00)
[2022-08-06] MEDS ORDERED: methylPREDNISolone Sod Succ 2 GM in Sodium Chloride 0.9% 100 ML IVPB SCH (15:15)
[2022-08-06 17:57] LABS: Hemoglobin A1c 5.2 % (4.0-6.0)
[2022-08-06] MEDS ORDERED: Albuterol Sulfate 2.5 mg/0.5 ml Neb NEB PRN (18:12)
[2022-08-06] MEDS ORDERED: Aspirin Chewable 81 MG TAB ONE (18:14)
[2022-08-06 18:17] LABS: SARS-CoV-2 NAA Rapid Test Not Detected (NotDetected)
[2022-08-06] MEDS: levETIRAcetam 500 mg/5 ml Oral Solution PO SCH (21:43)
[2022-08-06] MEDS: Atorvastatin Calcium 40 MG TAB PO SCH (21:43)
[2022-08-06] MEDS: Acetaminophen 325 MG TAB PO PRN (21:43)
[2022-08-06] MEDS: Apixaban 5 MG TAB PO SCH (21:43)
[2022-08-07 01:05] VITALS: BMI 37.3
[2022-08-07] MEDS: traZODone HCl 50 MG TAB PO PRN ×2 (03:23→23:56)
[2022-08-07] MEDS ORDERED: Ibuprofen 800 MG TAB PO PRN (03:24)
[2022-08-07 05:32] LABS: #Lymphocytes 0.7 thou/uL (1.20-3.40); %Basophils 0.1 % (0.0-1.0); %Eosinophils 0.1 % (0.0-10.0); %Lymphocytes 11.9 % (21.0-51.0); %Monocytes 0.5 % (0.0-10.0); %Neutrophils 87.4 % (42.0-75.0); Hemoglobin 14.4 g/dL (12.0-16.0); Mean Corpuscular HGB CONC 32.5 g/dL (32.0-36.0); Mean Corpuscular Hemoglobin 34.1 pg (27.0-31.0); Mean Platelet Volume 6.6 fL (7.4-10.4); Platelet Count 268 thou/uL (130-400); RBC Distribution Width 11.9 % (11.5-14.5); Red Blood Cell (RBC) Count 4.23 mill/uL (4.20-5.40); White Blood Cell (WBC) Count 5.7 thou/uL (4.8-10.8)
[2022-08-07 05:53] LABS: ALT (SGPT) 17 U/L (8-55); AST (SGOT) 13 U/L (5-34); Albumin 3.6 g/dL (3.5-5.0); Alkaline Phosphatase 82 U/L (40-110); Anion Gap 12 mmol/L (10-20); BUN (Urea Nitrogen) 15 mg/dL (9.8-20.1); Bilirubin, Total 0.2 mg/dL (0.2-1.2); Calc. Creatinine Clearance 115 mL/min (70-130); Calcium 9.2 mg/dL (7.8-10.44); Carbon Dioxide 22 mmol/L (22-29); Cardiac Risk 2.6 (Less than 4.5); Chloride 108 mmol/L (98-107); Cholesterol 131 mg/dl (< 200 Desired); Estimated GFR 77; Globulin 3.5 g/dL (2.4-3.5); Glucose 194 mg/dL (70-105); HDL Cholesterol 51 mg/dL (>60 Neg Risk); LDL Cholesterol, Calculated 73 mg/dL; Potassium 4.1 mmol/L (3.5-5.1); Protein, Total 7.1 g/dL (6.0-8.3); Sodium 138 mmol/L (136-145); Triglycerides 37 mg/dL (Less than 150)
[2022-08-07] MEDS: Mometasone 100 MCG/Formoterol 5 MCG 120 PUFF INHALER INH SCH (07:11)
[2022-08-07] MEDS: levETIRAcetam 500 mg/5 ml Oral Solution PO SCH (09:03)
[2022-08-07] MEDS: Apixaban 5 MG TAB PO SCH ×2 (09:03→21:18)
[2022-08-07] MEDS: Hydrochlorothiazide 25 MG TAB PO SCH (09:03)
[2022-08-07] MEDS: Aspirin 81 mg Enteric Coated Tablet PO SCH (09:03)
[2022-08-07] MEDS: Furosemide 20 MG TAB PO SCH (09:03)
[2022-08-07] MEDS ORDERED: SUMAtriptan Succinate 25 MG TAB PO SCH (10:45)
[2022-08-07] MEDS: cefTRIAXone\\ROCEPHIN 1 GM in Sodium Chloride 0.9% 100 ML IVPB SCH (14:14)
[2022-08-07] MEDS ORDERED: Lactated Ringer's 500 ML IV SCH ×2 (19:30→20:15)
[2022-08-07] MEDS: Atorvastatin Calcium 40 MG TAB PO SCH (21:18)
[2022-08-07] MEDS: Acetaminophen 325 MG TAB PO PRN (21:18)
[2022-08-07] MEDS: levETIRAcetam 500 MG TAB PO SCH (21:18)
[2022-08-08] MEDS: Mometasone 100 MCG/Formoterol 5 MCG 120 PUFF INHALER INH SCH (07:12)
[2022-08-08 07:29] LABS: #Lymphocytes 2.9 thou/uL (1.20-3.40); #Monocytes 0.6 thou/uL (0.11-0.59); #Neutrophils 8.4 thou/uL (1.40-6.50); %Basophils 0.3 % (0.0-1.0); %Eosinophils 0.3 % (0.0-10.0); %Lymphocytes 24.5 % (21.0-51.0); %Monocytes 4.7 % (0.0-10.0); %Neutrophils 70.2 % (42.0-75.0); Hemoglobin 15.4 g/dL (12.0-16.0); Mean Corpuscular HGB CONC 33.4 g/dL (32.0-36.0); Mean Platelet Volume 6.7 fL (7.4-10.4); Platelet Count 259 thou/uL (130-400); RBC Distribution Width 12.2 % (11.5-14.5); Red Blood Cell (RBC) Count 4.39 mill/uL (4.20-5.40)
[2022-08-08 07:50] LABS: ALT (SGPT) 16 U/L (8-55); AST (SGOT) 13 U/L (5-34); Albumin 3.6 g/dL (3.5-5.0); Alkaline Phosphatase 80 U/L (40-110); Anion Gap 10 mmol/L (10-20); BUN (Urea Nitrogen) 20 mg/dL (9.8-20.1); Bilirubin, Total 0.2 mg/dL (0.2-1.2); Calc. Creatinine Clearance 107 mL/min (70-130); Calcium 9.4 mg/dL (7.8-10.44); Carbon Dioxide 27 mmol/L (22-29); Chloride 107 mmol/L (98-107); Estimated GFR 70; Globulin 3.6 g/dL (2.4-3.5); Glucose 116 mg/dL (70-105); Protein, Total 7.2 g/dL (6.0-8.3); Sodium 140 mmol/L (136-145)
[2022-08-08] MEDS: Hydrochlorothiazide 25 MG TAB PO SCH (09:03)
[2022-08-08] MEDS: levETIRAcetam 500 MG TAB PO SCH ×2 (09:03→21:39)
[2022-08-08] MEDS: Apixaban 5 MG TAB PO SCH ×2 (09:03→21:40)
[2022-08-08] MEDS: Aspirin 81 mg Enteric Coated Tablet PO SCH (09:03)
[2022-08-08] MEDS: Furosemide 20 MG TAB PO SCH (09:03)
[2022-08-08] MEDS ORDERED: Benzonatate 100 MG CAP PO PRN (11:10)
[2022-08-08] MEDS: Nicotine 21 MG PATCH TD SCH (14:38)
[2022-08-08] MEDS: cefTRIAXone\\ROCEPHIN 1 GM in Sodium Chloride 0.9% 100 ML IVPB SCH (14:39)
[2022-08-08] MEDS: Atorvastatin Calcium 40 MG TAB PO SCH (21:39)
[2022-08-08] MEDS: Acetaminophen 325 MG TAB PO PRN (21:40)
[2022-08-08] MEDS: traZODone HCl 50 MG TAB PO PRN (21:40)
[2022-08-09 05:54] LABS: #Eosinphils 0.1 thou/uL (0.0-0.7); #Lymphocytes 2.4 thou/uL (1.20-3.40); #Monocytes 0.4 thou/uL (0.11-0.59); #Neutrophils 2.6 thou/uL (1.40-6.50); %Basophils 0.9 % (0.0-1.0); %Eosinophils 2.7 % (0.0-10.0); %Lymphocytes 42.7 % (21.0-51.0); %Monocytes 7.3 % (0.0-10.0); %Neutrophils 46.5 % (42.0-75.0); Mean Corpuscular HGB CONC 31.6 g/dL (32.0-36.0); Platelet Count 279 thou/uL (130-400); RBC Distribution Width 12.2 % (11.5-14.5); Red Blood Cell (RBC) Count 4.56 mill/uL (4.20-5.40); White Blood Cell (WBC) Count 5.6 thou/uL (4.8-10.8)
[2022-08-09 06:20] LABS: ALT (SGPT) 20 U/L (8-55); AST (SGOT) 15 U/L (5-34); Albumin 3.4 g/dL (3.5-5.0); Alkaline Phosphatase 74 U/L (40-110); Anion Gap 13 mmol/L (10-20); BUN (Urea Nitrogen) 24 mg/dL (9.8-20.1); Bilirubin, Total 0.3 mg/dL (0.2-1.2); Calc. Creatinine Clearance 102 mL/min (70-130); Calcium 8.8 mg/dL (7.8-10.44); Carbon Dioxide 27 mmol/L (22-29); Chloride 103 mmol/L (98-107); Estimated GFR 67; Globulin 3.6 g/dL (2.4-3.5); Glucose 125 mg/dL (70-105); Potassium 3.8 mmol/L (3.5-5.1); Sodium 139 mmol/L (136-145)
[2022-08-09] MEDS: Mometasone 100 MCG/Formoterol 5 MCG 120 PUFF INHALER INH SCH (07:28)
[2022-08-09] MEDS: Hydrochlorothiazide 25 MG TAB PO SCH (10:17)
[2022-08-09] MEDS: Aspirin 81 mg Enteric Coated Tablet PO SCH (10:17)
[2022-08-09] MEDS: Apixaban 5 MG TAB PO SCH (10:17)
[2022-08-09] MEDS: levETIRAcetam 500 MG TAB PO SCH (10:17)
[2022-08-09] MEDS: Furosemide 20 MG TAB PO SCH (10:17)
[2022-08-09 11:54] VITALS: BP 116/69; TEMP 96.8
[2022-08-09] MEDS ORDERED: Bicillin LA 2.4 MILL.UNITS/4 ML SYRINGE IM SCH (12:30)
[2022-08-09] MEDS: Nicotine 21 MG PATCH TD SCH (12:40)
[2022-08-09] MEDS: Bicillin LA 2.4 MILL.UNITS/4 ML SYRINGE IM SCH ×2 (12:40→12:43)
== END 2022-08-09 15:59 | disposition home or self-care (01) | DRG 56 ==
LOC: ERS 10:58 → ERHOLD 14:22 → NEURO 20:15 → OBSVTOIN 08-08 12:22
PROVIDERS: ADMIT Family Medicine; ATTEND Family Medicine
DX: G70.01 Myasthenia gravis with (acute) exacerbation (principal); I63.9 Cerebral infarction, unspecified; R29.704 NIHSS score 4; Z20.822 Contact with and (suspected) exposure to COVID-19; B18.1 Chronic viral hepatitis B without delta-agent; I50.22 Chronic systolic (congestive) heart failure; N39.0 Urinary tract infection, site not specified; G81.91 Hemiplegia, unspecified affecting right dominant side; G40.909 Epilepsy, unspecified, not intractable, without status epilepticus; K21.9 Gastro-esophageal reflux disease without esophagitis; F17.210 Nicotine dependence, cigarettes, uncomplicated; I11.0 Hypertensive heart disease with heart failure; G43.909 Migraine, unspecified, not intractable, without status migrainosus; F14.10 Cocaine abuse, uncomplicated; J44.9 Chronic obstructive pulmonary disease, unspecified; I08.3 Combined rheumatic disorders of mitral, aortic and tricuspid valves; A53.0 Latent syphilis, unspecified as early or late; R29.810 Facial weakness; R47.1 Dysarthria and anarthria; Z95.810 Presence of automatic (implantable) cardiac defibrillator; Z86.718 Personal history of other venous thrombosis and embolism; Z86.73 Personal history of transient ischemic attack (TIA), and cerebral infarction without residual deficits; Z79.899 Other long term (current) drug therapy; Z88.5 Allergy status to narcotic agent; Z88.8 Allergy status to other drugs, medicaments and biological substances; Z79.82 Long term (current) use of aspirin; Z79.01 Long term (current) use of anticoagulants; Z79.51 Long term (current) use of inhaled steroids
CPT/HCPCS: 36415; 70450; 74177; 80053; 80061; 81003; 81015; 82550; 83036; 83735; 84439; 84443; 84484; 85025; 87086; 93005; 93306; 93880; 95712; 95819; 95957; 96375; 96376; G0378; J0561; J0696; J2405; J2930; J3490; Q0162; Q9967; U0002

== ENCOUNTER 2022-09-03 12:58 | Emergency (ER) | payer OTHER ==
[2022-09-03 13:38] LABS: #Eosinphils 0.4 thou/uL (0.0-0.7); #Lymphocytes 2.1 thou/uL (1.20-3.40); #Monocytes 0.4 thou/uL (0.11-0.59); #Neutrophils 2.2 thou/uL (1.40-6.50); %Basophils 0.3 % (0.0-1.0); %Eosinophils 6.9 % (0.0-10.0); %Lymphocytes 41.2 % (21.0-51.0); %Monocytes 8.5 % (0.0-10.0); %Neutrophils 43.2 % (42.0-75.0); Hemoglobin 14.8 g/dL (12.0-16.0); Mean Corpuscular Hemoglobin 33.3 pg (27.0-31.0); Mean Platelet Volume 6.5 fL (7.4-10.4); Platelet Count 285 thou/uL (130-400); RBC Distribution Width 12.4 % (11.5-14.5); Red Blood Cell (RBC) Count 4.43 mill/uL (4.20-5.40); White Blood Cell (WBC) Count 5.1 thou/uL (4.8-10.8)
[2022-09-03 13:53] LABS: ALT (SGPT) 40 U/L (8-55); AST (SGOT) 32 U/L (5-34); Albumin 3.7 g/dL (3.5-5.0); Alkaline Phosphatase 78 U/L (40-110); Anion Gap 11 mmol/L (10-20); BUN (Urea Nitrogen) 15 mg/dL (9.8-20.1); Bilirubin, Total 0.2 mg/dL (0.2-1.2); Calc. Creatinine Clearance 0 mL/min (70-130); Calcium 9.5 mg/dL (7.8-10.44); Carbon Dioxide 25 mmol/L (22-29); Chloride 107 mmol/L (98-107); Estimated GFR 81; Globulin 3.8 g/dL (2.4-3.5); Glucose 90 mg/dL (70-105); Potassium 4.4 mmol/L (3.5-5.1); Protein, Total 7.5 g/dL (6.0-8.3); Sodium 139 mmol/L (136-145)
== END 2022-09-03 13:38 | disposition left against medical advice (07) ==
LOC: ERS 12:58
DX: Z53.21 Procedure and treatment not carried out due to patient leaving prior to being seen by health care provider (principal)
CPT/HCPCS: 36415; 71045; 80053; 83880; 84484; 85025; 93005; 94760

== ENCOUNTER 2022-10-12 14:33 | Emergency (ER) | payer OTHER ==
[2022-10-12 15:36] LABS: #Eosinphils 0.2 thou/uL (0.0-0.7); #Lymphocytes 1.9 thou/uL (1.20-3.40); #Monocytes 0.4 thou/uL (0.11-0.59); #Neutrophils 3.1 thou/uL (1.40-6.50); %Basophils 0.6 % (0.0-1.0); %Eosinophils 4.4 % (0.0-10.0); %Lymphocytes 33.3 % (21.0-51.0); %Monocytes 6.6 % (0.0-10.0); %Neutrophils 55.2 % (42.0-75.0); Hemoglobin 14.3 g/dL (12.0-16.0); Mean Corpuscular HGB CONC 32.8 g/dL (32.0-36.0); Mean Corpuscular Hemoglobin 33.8 pg (27.0-31.0); Mean Platelet Volume 7.2 fL (7.4-10.4); Platelet Count 271 10x3/uL (130-400); RBC Distribution Width 12.6 % (11.5-14.5); Red Blood Cell (RBC) Count 4.24 mill/uL (4.20-5.40); White Blood Cell (WBC) Count 5.6 10x3/uL (4.8-10.8)
[2022-10-12] MEDS ORDERED: predniSONE 20 MG TAB ONE (15:53)
[2022-10-12 15:57] LABS: ALT (SGPT) 22 U/L (8-55); AST (SGOT) 18 U/L (5-34); Albumin 3.8 g/dL (3.5-5.0); Alkaline Phosphatase 88 U/L (40-110); Anion Gap 12 mmol/L (10-20); BUN (Urea Nitrogen) 24 mg/dL (9.8-20.1); Bilirubin, Total 0.2 mg/dL (0.2-1.2); Calc. Creatinine Clearance 0 mL/min (70-130); Calcium 9.7 mg/dL (7.8-10.44); Carbon Dioxide 26 mmol/L (22-29); Chloride 105 mmol/L (98-107); Estimated GFR 58; Globulin 3.7 g/dL (2.4-3.5); Glucose 80 mg/dL (70-105); Potassium 4.2 mmol/L (3.5-5.1); Protein, Total 7.5 g/dL (6.0-8.3); Sodium 139 mmol/L (136-145)
== END 2022-10-12 16:32 | disposition home or self-care (01) ==
LOC: ERS 14:33
DX: J44.9 Chronic obstructive pulmonary disease, unspecified (principal); K21.9 Gastro-esophageal reflux disease without esophagitis; I11.0 Hypertensive heart disease with heart failure; I50.9 Heart failure, unspecified; F17.210 Nicotine dependence, cigarettes, uncomplicated
CPT/HCPCS: 36415; 80053; 84484; 85025; 93005; 94640; J7512; J7620

== ENCOUNTER 2022-12-17 09:22 | Emergency (ER) | payer OTHER ==
[2022-12-17 10:00] LABS: #Eosinphils 0.3 thou/uL (0.0-0.7); #Monocytes 0.4 thou/uL (0.11-0.59); #Neutrophils 2.4 thou/uL (1.40-6.50); %Basophils 0.4 % (0.0-1.0); %Eosinophils 5.2 % (0.0-10.0); %Lymphocytes 40.1 % (21.0-51.0); %Monocytes 7.2 % (0.0-10.0); Mean Corpuscular HGB CONC 33.1 g/dL (32.0-36.0); Mean Platelet Volume 6.7 fL (7.4-10.4); Platelet Count 297 10x3/uL (130-400); RBC Distribution Width 12.6 % (11.5-14.5); Red Blood Cell (RBC) Count 4.39 mill/uL (4.20-5.40)
[2022-12-17 10:24] LABS: ALT (SGPT) 20 U/L (8-55); AST (SGOT) 16 U/L (5-34); Albumin 3.6 g/dL (3.5-5.0); Alkaline Phosphatase 75 U/L (40-110); Anion Gap 11 mmol/L (10-20); BUN (Urea Nitrogen) 14 mg/dL (9.8-20.1); Bilirubin, Total 0.2 mg/dL (0.2-1.2); Calc. Creatinine Clearance 0 mL/min (70-130); Carbon Dioxide 23 mmol/L (22-29); Chloride 109 mmol/L (98-107); Estimated GFR 74; Globulin 3.5 g/dL (2.4-3.5); Glucose 107 mg/dL (70-105); Lipase 52 U/L (8-78); Potassium 4.4 mmol/L (3.5-5.1); Protein, Total 7.1 g/dL (6.0-8.3); Sodium 139 mmol/L (136-145)
[2022-12-17 10:40] LABS: Bilirubin Negative (Negative); Blood, Urine Negative (Negative); Clarity Turbid (Clear); Glucose, Urine (Dipstick) Normal (Negative); Ketone, Urine Negative (Negative); Leukocyte 500 Leu/uL (Negative); Nitrite Negative (Negative); Protein, Urine (Dipstick) Negative (Neg-Trace); RBC/HPF 0-3 HPF (0-3); Specific Gravity, Urine 1.022 (1.002-1.036); Squamous Epithelial 0-3 HPF (0-3); Urobilinogen Normal mg/dL (Less than 2); WBC/HPF Greater than 50 HPF (0-3)
[2022-12-17 10:41] LABS: Bacteria/HPF 1+ HPF (None Seen)
[2022-12-17 21:18] LABS: Chlam.trachomatis by PCR,Urine Not Detected (NotDetected)
== END 2022-12-17 11:25 | disposition home or self-care (01) ==
LOC: ERS 09:22
DX: N10 Acute pyelonephritis (principal); J44.9 Chronic obstructive pulmonary disease, unspecified; K21.9 Gastro-esophageal reflux disease without esophagitis; I11.0 Hypertensive heart disease with heart failure; I50.9 Heart failure, unspecified; F17.210 Nicotine dependence, cigarettes, uncomplicated; Z86.73 Personal history of transient ischemic attack (TIA), and cerebral infarction without residual deficits
CPT/HCPCS: 36415; 80053; 81003; 81015; 83690; 85025; 87077; 87086; 87491; 87591; 99284

== ENCOUNTER 2023-04-01 17:40 | Emergency (ER) | payer OTHER ==
[2023-04-01] MEDS ORDERED: Ketorolac Tromethamine 30 MG/ML VIAL ONE (18:25)
[2023-04-01] MEDS ORDERED: cefTRIAXone (ROCEPHIN) 500 MG VIAL ONE (18:44)
[2023-04-01] MEDS ORDERED: Lidocaine 1% MPF 2 ML VIAL ONE (18:44)
[2023-04-01 18:56] LABS: #Eosinphils 0.2 thou/uL (0.0-0.7); #Monocytes 0.5 thou/uL (0.11-0.59); %Basophils 0.6 % (0.0-1.0); %Eosinophils 4.5 % (0.0-10.0); %Lymphocytes 26.4 % (21.0-51.0); %Monocytes 8.9 % (0.0-10.0); %Neutrophils 59.2 % (42.0-75.0); Mean Corpuscular HGB CONC 31.8 g/dL (32.0-36.0); Mean Corpuscular Hemoglobin 32.8 pg (27.0-31.0); Mean Platelet Volume 9.4 fL (7.4-10.4); RBC Distribution Width 13.7 % (11.5-14.5); Red Blood Cell (RBC) Count 4.27 mill/uL (4.20-5.40); White Blood Cell (WBC) Count 5.1 10x3/uL (4.8-10.8)
[2023-04-01 19:02] LABS: Platelet Count 266 10x3/uL (130-400)
[2023-04-01 19:52] LABS: ALT (SGPT) 19 U/L (8-55); AST (SGOT) 27 U/L (5-34); Albumin 3.7 g/dL (3.4-4.8); Alkaline Phosphatase 80 U/L (40-110); Anion Gap 14 mmol/L (10-20); BUN (Urea Nitrogen) 14 mg/dL (9.8-20.1); Bilirubin, Total 0.3 mg/dL (0.2-1.2); Calc. Creatinine Clearance 0 mL/min (70-130); Calcium 9.2 mg/dL (7.8-10.44); Carbon Dioxide 22 mmol/L (23-31); Chloride 110 mmol/L (98-107); Estimated GFR 66; Globulin 3.8 g/dL (2.4-3.5); Glucose 74 mg/dL (80-115); Potassium 4.8 mmol/L (3.5-5.1); Protein, Total 7.5 g/dL (5.8-8.1); Sodium 141 mmol/L (136-145)
[2023-04-01 23:07] LABS: HIV (1/2) Antibody/Antigen Non-Reactive (NonReactive); HIV 1/2 INDEX 0.16 S/CO (<1.00)
== END 2023-04-01 20:02 | disposition home or self-care (01) ==
LOC: ERS 17:40
DX: R25.2 Cramp and spasm (principal); N34.2 Other urethritis; J44.9 Chronic obstructive pulmonary disease, unspecified; I11.0 Hypertensive heart disease with heart failure; I50.9 Heart failure, unspecified; K21.9 Gastro-esophageal reflux disease without esophagitis; F17.210 Nicotine dependence, cigarettes, uncomplicated; Z86.73 Personal history of transient ischemic attack (TIA), and cerebral infarction without residual deficits; Z79.01 Long term (current) use of anticoagulants
CPT/HCPCS: 36415; 80053; 85025; 87389; 96372; 99283; J0696; J1885

== ENCOUNTER 2023-07-15 09:44 | Emergency (ER) | payer OTHER ==
[2023-07-15 10:42] LABS: Bilirubin Negative (Negative); Blood, Urine Negative (Negative); Glucose, Urine (Dipstick) Negative (Negative); Ketone, Urine Negative (Negative); Leukocyte Negative (Negative); Nitrite Positive (Negative); Protein, Urine (Dipstick) Negative (Neg-Trace); Specific Gravity, Urine 1.025 (1.005-1.030); pH, Urine 6.5 (5.0-9.0)
[2023-07-15 10:43] LABS: Clarity Hazy (Clear)
[2023-07-15 10:59] LABS: CAUTI Indications for Culture Dysuria,urgency,freq
[2023-07-15 11:00] LABS: Bacteria/HPF 4+ HPF (None Seen)
[2023-07-15 11:01] LABS: Urine Culture Reflex Yes Yes
[2023-07-15 11:11] LABS: #Basophils 0.1 thou/uL (0.0-0.2); #Eosinphils 0.2 thou/uL (0.0-0.7); #Monocytes 0.5 thou/uL (0.11-0.59); #Neutrophils 3.6 thou/uL (1.40-6.50); %Basophils 0.8 % (0.0-1.0); %Eosinophils 2.8 % (0.0-10.0); %Monocytes 7.9 % (0.0-10.0); Hematocrit 50.7 % (36.0-47.0); Hemoglobin 16.3 g/dL (12.0-16.0); Mean Corpuscular HGB CONC 32.1 g/dL (32.0-36.0); Mean Corpuscular Hemoglobin 33.4 pg (27.0-31.0); Mean Corpuscular Volume 103.9 fl (78.0-98.0); Mean Platelet Volume 8.8 fL (7.4-10.4); Platelet Count 275 10x3/uL (130-400); RBC Distribution Width 13.6 % (11.5-14.5); Red Blood Cell (RBC) Count 4.88 mill/uL (4.20-5.40)
[2023-07-15 11:33] LABS: ALT (SGPT) 20 U/L (8-55); AST (SGOT) 19 U/L (5-34); Albumin 4.1 g/dL (3.4-4.8); Alkaline Phosphatase 98 U/L (40-110); Anion Gap 13 mmol/L (10-20); BUN (Urea Nitrogen) 13 mg/dL (9.8-20.1); Bilirubin, Total 0.4 mg/dL (0.2-1.2); Calc. Creatinine Clearance 0 mL/min (70-130); Calcium 9.5 mg/dL (7.8-10.44); Carbon Dioxide 24 mmol/L (23-31); Chloride 104 mmol/L (98-107); Estimated GFR 72; Globulin 4.1 g/dL (2.4-3.5); Glucose 98 mg/dL (80-115); Lipase 37 U/L (8-78); Magnesium 2.1 mg/dL (1.6-2.6); Protein, Total 8.2 g/dL (5.8-8.1); Sodium 137 mmol/L (136-145)
[2023-07-15 11:37] LABS: Troponin I 0.011 ng/mL (< 0.028)
[2023-07-15] MEDS ORDERED: Cyclobenzaprine 10 MG TAB ONE (11:54)
== END 2023-07-15 12:20 | disposition home or self-care (01) ==
LOC: ERS 09:44
DX: M25.512 Pain in left shoulder (principal); N39.0 Urinary tract infection, site not specified; J44.9 Chronic obstructive pulmonary disease, unspecified; I11.0 Hypertensive heart disease with heart failure; I50.9 Heart failure, unspecified; K21.9 Gastro-esophageal reflux disease without esophagitis; F17.290 Nicotine dependence, other tobacco product, uncomplicated; Z79.01 Long term (current) use of anticoagulants; Z79.899 Other long term (current) drug therapy
CPT/HCPCS: 36415; 71045; 80053; 81001; 83690; 83735; 84484; 85025; 85379; 87077; 87086; 87186; 93005

== ENCOUNTER 2023-09-04 12:24 | Inpatient (IN) | payer OTHER ==
[~2023-09-04 12:24] MED LIST changes: -Iopamidol-370 76% 500 ML 1 ML ONE; +Iopamidol-370 76% 500 ML MDV (1 ML CHARGE) ONE
[2023-09-04 13:26] LABS: #Eosinphils 0.2 thou/uL (0.0-0.7); #Monocytes 0.5 thou/uL (0.11-0.59); #Neutrophils 2.5 thou/uL (1.40-6.50); %Basophils 0.7 % (0.0-1.0); %Eosinophils 3.4 % (0.0-10.0); %Lymphocytes 39.5 % (21.0-51.0); %Monocytes 9.4 % (0.0-10.0); %Neutrophils 46.8 % (42.0-75.0); Hematocrit 40.7 % (36.0-47.0); Hemoglobin 13.4 g/dL (12.0-16.0); Mean Corpuscular HGB CONC 32.9 g/dL (32.0-36.0); Mean Corpuscular Hemoglobin 32.9 pg (27.0-31.0); Platelet Count 260 10x3/uL (130-400); RBC Distribution Width 13.9 % (11.5-14.5); Red Blood Cell (RBC) Count 4.07 mill/uL (4.20-5.40); White Blood Cell (WBC) Count 5.3 10x3/uL (4.8-10.8)
[2023-09-04 13:48] LABS: ALT (SGPT) 18 U/L (8-55); AST (SGOT) 15 U/L (5-34); Albumin 3.7 g/dL (3.4-4.8); Alkaline Phosphatase 74 U/L (40-110); Anion Gap 11 mmol/L (10-20); BUN (Urea Nitrogen) 13 mg/dL (9.8-20.1); Bilirubin, Total 0.3 mg/dL (0.2-1.2); Calc. Creatinine Clearance 0 mL/min (70-130); Calcium 8.9 mg/dL (7.8-10.44); Carbon Dioxide 25 mmol/L (23-31); Chloride 109 mmol/L (98-107); Estimated GFR 85; Globulin 2.5 g/dL (2.4-3.5); Glucose 94 mg/dL (80-115); Potassium 3.9 mmol/L (3.5-5.1); Protein, Total 6.2 g/dL (5.8-8.1); Sodium 141 mmol/L (136-145)
[2023-09-04 13:52] LABS: Troponin I Less than 0.010 ng/mL (< 0.028)
[2023-09-04 14:04] LABS: Bacteria/HPF 4+ HPF (None Seen); Bilirubin Negative (Negative); Blood, Urine Negative (Negative); CAUTI Indications for Culture Dysuria,urgency,freq; Clarity Turbid (Clear); Glucose, Urine (Dipstick) Normal (Negative); Ketone, Urine Negative (Negative); Leukocyte 25 Leu/uL (Negative); Nitrite 2+ (Negative); Protein, Urine (Dipstick) Negative (Neg-Trace); RBC/HPF 0-3 HPF (0-3); Squamous Epithelial 0-3 HPF (0-3); pH, Urine 6.5 (5.0-9.0)
[2023-09-04 14:05] LABS: Urine Culture Reflex No No
[2023-09-04] MEDS ORDERED: Ondansetron ODT 4 MG TAB PO PRN (15:52)
[2023-09-04] MEDS ORDERED: Aspirin 325 mg Enteric Coated Tablet PO SCH (16:30)
[2023-09-04 16:34] LABS: Amphetamine Detected (NotDetected); Barbiturates Screen Not Detected (NotDetected); Benzodiazepine Screen Not Detected (NotDetected); Cocaine Metabolite Screen Detected (NotDetected); Methadone Not Detected (NotDetected); Methamphetamine Detected (NotDetected); Opiate Screen Not Detected (NotDetected); Oxycodone Screen Not Detected (NotDetected); Phencyclidine (PCP) Not Detected (NotDetected); THC/Cannabinoid Screen Not Detected (NotDetected); Tricyclic Screen Not Detected (NotDetected)
[2023-09-04 17:19] LABS: Hemoglobin A1c 5.6 % (4.0-6.0)
[2023-09-04] MEDS ORDERED: Lorazepam 2 MG/ML VIAL SLOW IVP SCH (17:30)
[2023-09-04] MEDS: cefTRIAXone\\ROCEPHIN 1 GM in Sodium Chloride 0.9% 100 ML IVPB SCH (18:29)
[2023-09-04] MEDS: Nicotine 14 MG PATCH TD SCH (18:29)
[2023-09-04] MEDS: Acetaminophen 325 MG TAB PO PRN (18:29)
[2023-09-04 19:26] VITALS: BMI 37.0
[2023-09-04] MEDS: Atorvastatin Calcium 40 MG TAB PO SCH (20:18)
[2023-09-04] MEDS: levETIRAcetam 500 MG/5 ML VIAL SLOW IVP SCH (20:18)
[2023-09-05 04:49] LABS: Hematocrit 41.2 % (36.0-47.0); Hemoglobin 13.3 g/dL (12.0-16.0); Mean Corpuscular HGB CONC 32.3 g/dL (32.0-36.0); Mean Corpuscular Hemoglobin 32.8 pg (27.0-31.0); Mean Corpuscular Volume 101.7 fl (78.0-98.0); Mean Platelet Volume 8.9 fL (7.4-10.4); Platelet Count 252 10x3/uL (130-400); Red Blood Cell (RBC) Count 4.05 mill/uL (4.20-5.40); White Blood Cell (WBC) Count 4.9 10x3/uL (4.8-10.8)
[2023-09-05 05:00] LABS: Manual Diff?? YES
[2023-09-05 05:01] LABS: Delete Auto Diff?? YES
[2023-09-05 05:22] LABS: ALT (SGPT) 16 U/L (8-55); AST (SGOT) 15 U/L (5-34); Albumin 3.3 g/dL (3.4-4.8); Alkaline Phosphatase 69 U/L (40-110); Anion Gap 11 mmol/L (10-20); BUN (Urea Nitrogen) 12 mg/dL (9.8-20.1); Bilirubin, Total Less than 0.2 mg/dL (0.2-1.2); Calc. Creatinine Clearance 123 mL/min (70-130); Calcium 8.7 mg/dL (7.8-10.44); Carbon Dioxide 26 mmol/L (23-31); Chloride 109 mmol/L (98-107); Cholesterol 111 mg/dl (< 200 Desired); Estimated GFR 85; Globulin 2.9 g/dL (2.4-3.5); Glucose 111 mg/dL (80-115); HDL Cholesterol 37 mg/dL (>60 Neg Risk); LDL Cholesterol, Calculated 46 mg/dL; Protein, Total 6.2 g/dL (5.8-8.1); Sodium 142 mmol/L (136-145); Triglycerides 139 mg/dL (Less than 150)
[2023-09-05 05:33] LABS: Anisocytosis SLIGHT = 6-15 cells HPF (0-5); CellaVision Operator ID lab.sh2; Eosinophils 3 % (0-10); Hypochromia SLIGHT = 6-15 cells HPF (0-5); Lymphocytes 43 % (21-51); Macrocytosis SLIGHT = 6-15 cells HPF (0-5); Monocytes 9 % (0-10); Neutrophil 46 % (42-75); Platelet Adequacy Comment Platelets Normal; Polychromasia SLIGHT = 2-3 cells HPF (0-2); Smudge Cells 17.8 %; Total Cell Count 101
[2023-09-05] MEDS ORDERED: Ipratropium/Albuterol 3 ML NEB NEB PRN (08:49)
[2023-09-05] MEDS ORDERED: Pantoprazole 40 MG VIAL IVP SCH (09:00)
[2023-09-05] MEDS ORDERED: Aspirin 325 mg Enteric Coated Tablet PO SCH (09:00)
[2023-09-05] MEDS ORDERED: traZODone HCl 50 MG TAB PO PRN (09:36)
[2023-09-05] MEDS ORDERED: Albuterol 200 PUFF (6.7GM INHALER) INH PRN (09:36)
[2023-09-05] MEDS: guaiFENesin/DM ER PO SCH ×2 (09:37→20:16)
[2023-09-05] MEDS: Acetaminophen 325 MG TAB PO PRN (09:37)
[2023-09-05] MEDS: levETIRAcetam 500 MG/5 ML VIAL SLOW IVP SCH (09:38)
[2023-09-05] MEDS ORDERED: Gabapentin 100 MG CAP PO SCH (10:15)
[2023-09-05] MEDS: Aspirin 81 mg Enteric Coated Tablet PO SCH (11:20)
[2023-09-05] MEDS ORDERED: Senokot S 8.6-50 MG TAB PO SCH (13:00)
[2023-09-05] MEDS ORDERED: Polyethylene Glycol 3350 17 GM Packet PO SCH (13:00)
[2023-09-05] MEDS: cefTRIAXone\\ROCEPHIN 1 GM in Sodium Chloride 0.9% 100 ML IVPB SCH (17:44)
[2023-09-05] MEDS: Nicotine 14 MG PATCH TD SCH (17:44)
[2023-09-05] MEDS: Gabapentin 100 MG CAP PO SCH (18:38)
[2023-09-05] MEDS: Mometasone 100 MCG/Formoterol 5 MCG 120 PUFF INHALER INH SCH (18:41)
[2023-09-05] MEDS: Metoprolol Tartrate 25 MG TAB PO SCH (20:16)
[2023-09-05] MEDS: Atorvastatin Calcium 40 MG TAB PO SCH (20:16)
[2023-09-05] MEDS: Apixaban 5 MG TAB PO SCH (20:16)
[2023-09-05] MEDS: levETIRAcetam 500 mg/5 ml Oral Solution PO SCH (20:16)
[2023-09-05] MEDS: Senokot S 8.6-50 MG TAB PO SCH (20:17)
[2023-09-06] MEDS: Gabapentin 100 MG CAP PO SCH ×2 (01:43→11:32)
[2023-09-06 05:20] LABS: #Eosinphils 0.2 thou/uL (0.0-0.7); #Monocytes 0.4 thou/uL (0.11-0.59); #Neutrophils 2.5 thou/uL (1.40-6.50); %Basophils 0.8 % (0.0-1.0); %Eosinophils 4.5 % (0.0-10.0); %Lymphocytes 35.7 % (21.0-51.0); %Monocytes 8.9 % (0.0-10.0); %Neutrophils 49.9 % (42.0-75.0); Hematocrit 42.2 % (36.0-47.0); Hemoglobin 13.5 g/dL (12.0-16.0); Mean Corpuscular Hemoglobin 32.1 pg (27.0-31.0); Mean Corpuscular Volume 100.5 fl (78.0-98.0); Platelet Count 250 10x3/uL (130-400); White Blood Cell (WBC) Count 4.9 10x3/uL (4.8-10.8)
[2023-09-06 05:47] LABS: Anion Gap 9 mmol/L (10-20); BUN (Urea Nitrogen) 8 mg/dL (9.8-20.1); Calc. Creatinine Clearance 127 mL/min (70-130); Carbon Dioxide 26 mmol/L (23-31); Chloride 108 mmol/L (98-107); Potassium 4.2 mmol/L (3.5-5.1); Sodium 139 mmol/L (136-145)
[2023-09-06 05:48] LABS: ALT (SGPT) 19 U/L (8-55); AST (SGOT) 14 U/L (5-34); Albumin 3.4 g/dL (3.4-4.8); Alkaline Phosphatase 68 U/L (40-110); Bilirubin, Total 0.2 mg/dL (0.2-1.2); Calcium 8.6 mg/dL (7.8-10.44); Estimated GFR 88; Globulin 2.7 g/dL (2.4-3.5); Glucose 106 mg/dL (80-115); Protein, Total 6.1 g/dL (5.8-8.1)
[2023-09-06] MEDS: Mometasone 100 MCG/Formoterol 5 MCG 120 PUFF INHALER INH SCH (07:02)
[2023-09-06] MEDS ORDERED: Polyethylene Glycol 3350 17 GM Packet PO SCH (09:00)
[2023-09-06] MEDS: Aspirin 81 mg Enteric Coated Tablet PO SCH (11:31)
[2023-09-06] MEDS: Apixaban 5 MG TAB PO SCH (11:42)
[2023-09-06] MEDS: Metoprolol Tartrate 25 MG TAB PO SCH (11:42)
[2023-09-06] MEDS: levETIRAcetam 500 mg/5 ml Oral Solution PO SCH (11:42)
[2023-09-06] MEDS: Senokot S 8.6-50 MG TAB PO SCH (11:43)
[2023-09-06] MEDS: guaiFENesin/DM ER PO SCH (11:43)
[2023-09-06 16:25] VITALS: BP 130/77; TEMP 98.4
[2023-09-06] MEDS: cefTRIAXone\\ROCEPHIN 1 GM in Sodium Chloride 0.9% 100 ML IVPB SCH (17:16)
[2023-09-06] MEDS: Nicotine 14 MG PATCH TD SCH (17:52)
[2023-09-07] MEDS ORDERED: FLU VACC QS2023-24(6MOS UP)/PF 60 MCG/0.5 ML SYRINGE IM ONE (09:00)
== END 2023-09-06 18:10 | disposition home or self-care (01) | DRG 690 ==
LOC: ERS 12:24 → 2SE 15:52 → OBSVTOIN 09-05 16:31
PROVIDERS: ADMIT Family Medicine; ATTEND Family Medicine
DX: N39.0 Urinary tract infection, site not specified (principal); G81.94 Hemiplegia, unspecified affecting left nondominant side; R55 Syncope and collapse; I50.9 Heart failure, unspecified; I11.0 Hypertensive heart disease with heart failure; E78.5 Hyperlipidemia, unspecified; J44.9 Chronic obstructive pulmonary disease, unspecified; G70.00 Myasthenia gravis without (acute) exacerbation; F17.210 Nicotine dependence, cigarettes, uncomplicated; G40.909 Epilepsy, unspecified, not intractable, without status epilepticus; F19.10 Other psychoactive substance abuse, uncomplicated; Z79.82 Long term (current) use of aspirin; Z88.8 Allergy status to other drugs, medicaments and biological substances; Z91.041 Radiographic dye allergy status; Z95.0 Presence of cardiac pacemaker; Z88.6 Allergy status to analgesic agent; Z79.51 Long term (current) use of inhaled steroids; Z79.899 Other long term (current) drug therapy; Z90.49 Acquired absence of other specified parts of digestive tract; Z90.710 Acquired absence of both cervix and uterus; Z82.49 Family history of ischemic heart disease and other diseases of the circulatory system
CPT/HCPCS: 0042T; 36415; 36416; 70450; 70496; 70498; 71045; 80053; 80061; 80306; 81001; 83036; 83880; 84443; 84484; 85025; 87077; 87086; 87186; 93005; 93306; 96374; 96375; 96376; G0378; J0696; J1953; J3490; Q9967

== ENCOUNTER 2023-09-14 13:09 | Emergency (ER) | payer OTHER ==
[2023-09-14 13:58] LABS: #Eosinphils 0.1 thou/uL (0.0-0.7); #Monocytes 0.5 thou/uL (0.11-0.59); #Neutrophils 3.4 thou/uL (1.40-6.50); %Basophils 0.7 % (0.0-1.0); %Eosinophils 1.6 % (0.0-10.0); %Lymphocytes 29.8 % (21.0-51.0); %Monocytes 8.1 % (0.0-10.0); %Neutrophils 59.4 % (42.0-75.0); Hematocrit 41.8 % (36.0-47.0); Hemoglobin 13.7 g/dL (12.0-16.0); Mean Corpuscular HGB CONC 32.8 g/dL (32.0-36.0); Mean Corpuscular Hemoglobin 32.7 pg (27.0-31.0); Mean Corpuscular Volume 99.8 fl (78.0-98.0); Mean Platelet Volume 9.4 fL (7.4-10.4); Platelet Count 274 10x3/uL (130-400); RBC Distribution Width 14.3 % (11.5-14.5); Red Blood Cell (RBC) Count 4.19 mill/uL (4.20-5.40); White Blood Cell (WBC) Count 5.7 10x3/uL (4.8-10.8)
[2023-09-14 14:32] LABS: Troponin I Less than 0.010 ng/mL (< 0.028)
[2023-09-14 14:33] LABS: ALT (SGPT) 22 U/L (8-55); AST (SGOT) 19 U/L (5-34); Alkaline Phosphatase 79 U/L (40-110); Anion Gap 13 mmol/L (10-20); BUN (Urea Nitrogen) 6 mg/dL (9.8-20.1); Bilirubin, Total 0.4 mg/dL (0.2-1.2); Calc. Creatinine Clearance 0 mL/min (70-130); Calcium 9.3 mg/dL (7.8-10.44); Carbon Dioxide 25 mmol/L (23-31); Chloride 107 mmol/L (98-107); Estimated GFR 83; Globulin 2.9 g/dL (2.4-3.5); Glucose 98 mg/dL (80-115); Potassium 3.8 mmol/L (3.5-5.1); Protein, Total 6.9 g/dL (5.8-8.1); Sodium 141 mmol/L (136-145)
[2023-09-14 14:51] LABS: Bilirubin Negative (Negative); Blood, Urine Negative (Negative); Glucose, Urine (Dipstick) Negative (Negative); Ketone, Urine Negative (Negative); Leukocyte Moderate (Negative); Nitrite Negative (Negative); Protein, Urine (Dipstick) Negative (Neg-Trace); Specific Gravity, Urine 1.015 (1.005-1.030); Urobilinogen 0.2 mg/dL (Less than 2)
[2023-09-14 14:52] LABS: Clarity Clear (Clear)
[2023-09-14 14:53] LABS: CAUTI Indications for Culture Dysuria,urgency,freq; Squamous Epithelial 0-3 HPF (0-3)
[2023-09-14 14:54] LABS: Urine Culture Reflex No No
[2023-09-14 14:55] LABS: RBC/HPF None Seen HPF (0-3)
[2023-09-14] MEDS ORDERED: HYDROcodone/Acetaminophen 5/325 mg Tablet ONE (16:04)
== END 2023-09-14 16:15 | disposition home or self-care (01) ==
LOC: ERS 13:09
DX: S29.012A Strain of muscle and tendon of back wall of thorax, initial encounter (principal); M54.6 Pain in thoracic spine; F17.210 Nicotine dependence, cigarettes, uncomplicated; K21.9 Gastro-esophageal reflux disease without esophagitis; J44.9 Chronic obstructive pulmonary disease, unspecified; I11.0 Hypertensive heart disease with heart failure; I50.9 Heart failure, unspecified; Z79.01 Long term (current) use of anticoagulants; Z79.899 Other long term (current) drug therapy; Z79.51 Long term (current) use of inhaled steroids; X58.XXXA Exposure to other specified factors, initial encounter
CPT/HCPCS: 71046; 80053; 81001; 84484; 85025; 93005

== ENCOUNTER 2023-12-18 15:50 | Inpatient (IN) | payer OTHER ==
[2023-12-18 16:19] LABS: #Basophils 0.1 thou/uL (0.0-0.2); #Eosinphils 0.3 thou/uL (0.0-0.7); #Monocytes 0.5 thou/uL (0.11-0.59); #Neutrophils 4.5 thou/uL (1.40-6.50); %Basophils 0.6 % (0.0-1.0); %Eosinophils 3.5 % (0.0-10.0); %Lymphocytes 32.5 % (21.0-51.0); %Monocytes 5.9 % (0.0-10.0); %Neutrophils 57.4 % (42.0-75.0); Hematocrit 46.6 % (36.0-47.0); Mean Corpuscular HGB CONC 32.2 g/dL (32.0-36.0); Mean Corpuscular Hemoglobin 33.3 pg (27.0-31.0); Mean Corpuscular Volume 103.6 fl (78.0-98.0); Mean Platelet Volume 8.9 fL (7.4-10.4); Platelet Count 273 10x3/uL (130-400); RBC Distribution Width 13.6 % (11.5-14.5); White Blood Cell (WBC) Count 7.8 10x3/uL (4.8-10.8)
[2023-12-18 16:47] LABS: ALT (SGPT) 24 U/L (8-55); AST (SGOT) 26 U/L (5-34); Alkaline Phosphatase 90 U/L (40-110); Anion Gap 13 mmol/L (10-20); BUN (Urea Nitrogen) 11 mg/dL (9.8-20.1); Bilirubin, Total 0.5 mg/dL (0.2-1.2); Calc. Creatinine Clearance 0 mL/min (70-130); Calcium 8.6 mg/dL (7.8-10.44); Carbon Dioxide 22 mmol/L (23-31); Chloride 111 mmol/L (98-107); Estimated GFR 94; Globulin 3.5 g/dL (2.4-3.5); Glucose 112 mg/dL (80-115); Potassium 4.8 mmol/L (3.5-5.1); Protein, Total 7.5 g/dL (5.8-8.1); Sodium 141 mmol/L (136-145)
[2023-12-18 16:50] LABS: Troponin I Less than 0.010 ng/mL (< 0.028)
[2023-12-18 17:28] LABS: Bilirubin Negative (Negative); Blood, Urine 1+ (Negative); CAUTI Indications for Culture Alt mental st,lethar; Clarity Clear (Clear); Glucose, Urine (Dipstick) Normal (Negative); Ketone, Urine Negative (Negative); Leukocyte 500 Leu/uL (Negative); Nitrite Negative (Negative); Protein, Urine (Dipstick) Negative (Neg-Trace); Specific Gravity, Urine 1.042 (1.002-1.036); Squamous Epithelial 0-3 HPF (0-3); Urobilinogen Normal mg/dL (Less than 2); WBC/HPF 21-50 HPF (0-3)
[2023-12-18 17:30] LABS: Bacteria/HPF 1+ HPF (None Seen)
[2023-12-18 17:31] LABS: Urine Culture Reflex Yes Yes
[2023-12-18] MEDS ORDERED: Sodium Chloride 0.9% 100 ML ONE (18:46)
[2023-12-18] MEDS ORDERED: cefTRIAXone (ROCEPHIN) 2 GM VIAL ONE (18:46)
[2023-12-18 19:05] LABS: Amphetamine Not Detected (NotDetected); Barbiturates Screen Not Detected (NotDetected); Benzodiazepine Screen Not Detected (NotDetected); Cocaine Metabolite Screen Detected (NotDetected); Methadone Not Detected (NotDetected); Methamphetamine Not Detected (NotDetected); Opiate Screen Not Detected (NotDetected); Oxycodone Screen Not Detected (NotDetected); Phencyclidine (PCP) Not Detected (NotDetected); THC/Cannabinoid Screen Not Detected (NotDetected); Tricyclic Screen Not Detected (NotDetected)
[2023-12-18] MEDS ORDERED: Acetaminophen 325 MG TAB PO PRN (19:54)
[2023-12-18] MEDS ORDERED: Benzonatate 100 MG CAP PO PRN (20:04)
[2023-12-18] MEDS: Atorvastatin Calcium 40 MG TAB PO SCH (23:43)
[2023-12-18] MEDS: Apixaban 5 MG TAB PO SCH (23:43)
[2023-12-18] MEDS: levETIRAcetam 500 mg/5 ml Oral Solution PO SCH (23:43)
[2023-12-18] MEDS: Gabapentin 100 MG CAP PO SCH (23:44)
[2023-12-19 00:43] VITALS: BMI 37.2
[2023-12-19] MEDS: Gabapentin 100 MG CAP PO SCH ×3 (04:37→21:33)
[2023-12-19 05:26] LABS: #Eosinphils 0.3 thou/uL (0.0-0.7); #Monocytes 0.5 thou/uL (0.11-0.59); #Neutrophils 3.1 thou/uL (1.40-6.50); %Basophils 0.7 % (0.0-1.0); %Eosinophils 4.5 % (0.0-10.0); %Monocytes 7.9 % (0.0-10.0); %Neutrophils 51.6 % (42.0-75.0); Hematocrit 41.3 % (36.0-47.0); Hemoglobin 13.4 g/dL (12.0-16.0); Mean Corpuscular HGB CONC 32.4 g/dL (32.0-36.0); Mean Corpuscular Volume 101.7 fl (78.0-98.0); Mean Platelet Volume 9.3 fL (7.4-10.4); Platelet Count 270 10x3/uL (130-400); RBC Distribution Width 13.7 % (11.5-14.5); Red Blood Cell (RBC) Count 4.06 mill/uL (4.20-5.40); White Blood Cell (WBC) Count 6.1 10x3/uL (4.8-10.8)
[2023-12-19 05:57] LABS: Anion Gap 10 mmol/L (10-20); BUN (Urea Nitrogen) 9 mg/dL (9.8-20.1); Calc. Creatinine Clearance 139 mL/min (70-130); Calcium 8.6 mg/dL (7.8-10.44); Carbon Dioxide 25 mmol/L (23-31); Cardiac Risk 3.2 (Less than 4.5); Chloride 110 mmol/L (98-107); Cholesterol 120 mg/dl (< 200 Desired); Estimated GFR 98; Glucose 105 mg/dL (80-115); HDL Cholesterol 37 mg/dL (>60 Neg Risk); LDL Cholesterol, Calculated 60 mg/dL; Potassium 3.9 mmol/L (3.5-5.1); Sodium 141 mmol/L (136-145); Triglycerides 114 mg/dL (Less than 150)
[2023-12-19] MEDS: Mometasone 100 MCG/Formoterol 5 MCG 120 PUFF INHALER INH SCH (07:25)
[2023-12-19] MEDS: Nicotine 21 MG PATCH TD SCH (10:00)
[2023-12-19] MEDS: Apixaban 5 MG TAB PO SCH ×2 (10:00→21:34)
[2023-12-19] MEDS: Aspirin 81 mg Enteric Coated Tablet PO SCH (10:00)
[2023-12-19] MEDS: levETIRAcetam 500 mg/5 ml Oral Solution PO SCH ×2 (10:00→21:35)
[2023-12-19] MEDS: Polyethylene Glycol 3350 17 GM Packet PO SCH (10:01)
[2023-12-19] MEDS ORDERED: Lidocaine 4% Patch TD SCH (10:23)
[2023-12-19] MEDS: Lidocaine 4% Patch TD SCH (11:21)
[2023-12-19] MEDS: Acetaminophen 500 MG TAB PO PRN (17:31)
[2023-12-19] MEDS: cefTRIAXone\\ROCEPHIN 1 GM in Sodium Chloride 0.9% 100 ML IVPB SCH (17:32)
[2023-12-19] MEDS: traZODone HCl 50 MG TAB PO PRN (21:34)
[2023-12-19] MEDS: Calcium Carbonate 500 MG ChewTAB PO PRN (21:34)
[2023-12-19] MEDS: Atorvastatin Calcium 40 MG TAB PO SCH (21:34)
[2023-12-19] MEDS: Transdermal Patch Removal TOP SCH (21:39)
[2023-12-20] MEDS: Gabapentin 100 MG CAP PO SCH ×3 (05:18→20:24)
[2023-12-20] MEDS: Mometasone 100 MCG/Formoterol 5 MCG 120 PUFF INHALER INH SCH (07:11)
[2023-12-20 07:23] LABS: #Eosinphils 0.3 thou/uL (0.0-0.7); #Monocytes 0.3 thou/uL (0.11-0.59); #Neutrophils 2.5 thou/uL (1.40-6.50); %Basophils 0.6 % (0.0-1.0); %Eosinophils 5.4 % (0.0-10.0); %Neutrophils 48.8 % (42.0-75.0); Hematocrit 41.7 % (36.0-47.0); Hemoglobin 13.6 g/dL (12.0-16.0); Mean Corpuscular HGB CONC 32.6 g/dL (32.0-36.0); Mean Corpuscular Hemoglobin 33.5 pg (27.0-31.0); Mean Corpuscular Volume 102.7 fl (78.0-98.0); Mean Platelet Volume 9.3 fL (7.4-10.4); Platelet Count 273 10x3/uL (130-400); RBC Distribution Width 13.6 % (11.5-14.5); Red Blood Cell (RBC) Count 4.06 mill/uL (4.20-5.40); White Blood Cell (WBC) Count 5.2 10x3/uL (4.8-10.8)
[2023-12-20 07:49] LABS: Anion Gap 10 mmol/L (10-20); BUN (Urea Nitrogen) 12 mg/dL (9.8-20.1); Calc. Creatinine Clearance 135 mL/min (70-130); Calcium 9.1 mg/dL (7.8-10.44); Carbon Dioxide 23 mmol/L (23-31); Chloride 109 mmol/L (98-107); Estimated GFR 95; Glucose 117 mg/dL (80-115); Potassium 4.2 mmol/L (3.5-5.1); Sodium 138 mmol/L (136-145)
[2023-12-20] MEDS: levETIRAcetam 500 mg/5 ml Oral Solution PO SCH ×2 (09:36→20:24)
[2023-12-20] MEDS: Lidocaine 4% Patch TD SCH (09:36)
[2023-12-20] MEDS: Apixaban 5 MG TAB PO SCH ×2 (09:36→20:24)
[2023-12-20] MEDS: Nicotine 21 MG PATCH TD SCH (09:36)
[2023-12-20] MEDS: Aspirin 81 mg Enteric Coated Tablet PO SCH (09:36)
[2023-12-20] MEDS: Polyethylene Glycol 3350 17 GM Packet PO SCH (09:37)
[2023-12-20] MEDS: cefTRIAXone\\ROCEPHIN 1 GM in Sodium Chloride 0.9% 100 ML IVPB SCH (18:05)
[2023-12-20] MEDS: Atorvastatin Calcium 40 MG TAB PO SCH (20:23)
[2023-12-21] MEDS: Transdermal Patch Removal TOP SCH (00:12)
[2023-12-21] MEDS: Gabapentin 100 MG CAP PO SCH ×3 (03:30→20:31)
[2023-12-21] MEDS ORDERED: Ondansetron ODT 4 MG TAB PO SCH (03:45)
[2023-12-21 06:46] LABS: #Eosinphils 0.2 thou/uL (0.0-0.7); #Monocytes 0.3 thou/uL (0.11-0.59); #Neutrophils 2.6 thou/uL (1.40-6.50); %Basophils 0.8 % (0.0-1.0); %Eosinophils 4.6 % (0.0-10.0); %Lymphocytes 34.4 % (21.0-51.0); %Monocytes 6.8 % (0.0-10.0); %Neutrophils 53.2 % (42.0-75.0); Hematocrit 43.2 % (36.0-47.0); Mean Corpuscular HGB CONC 32.4 g/dL (32.0-36.0); Mean Corpuscular Hemoglobin 33.3 pg (27.0-31.0); Mean Corpuscular Volume 102.9 fl (78.0-98.0); Mean Platelet Volume 9.7 fL (7.4-10.4); Platelet Count 246 10x3/uL (130-400); RBC Distribution Width 13.5 % (11.5-14.5)
[2023-12-21 07:09] LABS: Anion Gap 9 mmol/L (10-20); BUN (Urea Nitrogen) 14 mg/dL (9.8-20.1); Calc. Creatinine Clearance 132 mL/min (70-130); Calcium 8.8 mg/dL (7.8-10.44); Carbon Dioxide 27 mmol/L (23-31); Chloride 108 mmol/L (98-107); Estimated GFR 92; Glucose 108 mg/dL (80-115); Potassium 4.2 mmol/L (3.5-5.1); Sodium 140 mmol/L (136-145)
[2023-12-21] MEDS: Mometasone 100 MCG/Formoterol 5 MCG 120 PUFF INHALER INH SCH (07:17)
[2023-12-21] MEDS: levETIRAcetam 500 mg/5 ml Oral Solution PO SCH ×2 (09:25→20:32)
[2023-12-21] MEDS: Apixaban 5 MG TAB PO SCH ×2 (09:25→20:31)
[2023-12-21] MEDS: Aspirin 81 mg Enteric Coated Tablet PO SCH (09:25)
[2023-12-21] MEDS: Nicotine 21 MG PATCH TD SCH (09:25)
[2023-12-21] MEDS: Polyethylene Glycol 3350 17 GM Packet PO SCH (09:26)
[2023-12-21] MEDS: Lidocaine 4% Patch TD SCH (11:32)
[2023-12-21] MEDS: Ondansetron ODT 8 MG TAB SL PRN (11:32)
[2023-12-21] MEDS: Atorvastatin Calcium 40 MG TAB PO SCH (20:31)
[2023-12-22] MEDS: Transdermal Patch Removal TOP SCH ×2 (00:47→23:00)
[2023-12-22] MEDS: Gabapentin 100 MG CAP PO SCH ×3 (03:37→20:55)
[2023-12-22 05:23] LABS: #Eosinphils 0.3 thou/uL (0.0-0.7); #Monocytes 0.5 thou/uL (0.11-0.59); #Neutrophils 3.1 thou/uL (1.40-6.50); %Basophils 0.7 % (0.0-1.0); %Eosinophils 4.5 % (0.0-10.0); %Lymphocytes 32.2 % (21.0-51.0); %Monocytes 8.1 % (0.0-10.0); %Neutrophils 54.3 % (42.0-75.0); Hematocrit 43.2 % (36.0-47.0); Hemoglobin 14.1 g/dL (12.0-16.0); Mean Corpuscular HGB CONC 32.6 g/dL (32.0-36.0); Mean Corpuscular Hemoglobin 33.7 pg (27.0-31.0); Mean Corpuscular Volume 103.3 fl (78.0-98.0); Mean Platelet Volume 8.7 fL (7.4-10.4); Platelet Count 278 10x3/uL (130-400); RBC Distribution Width 13.3 % (11.5-14.5); Red Blood Cell (RBC) Count 4.18 mill/uL (4.20-5.40); White Blood Cell (WBC) Count 5.8 10x3/uL (4.8-10.8)
[2023-12-22 06:21] LABS: Anion Gap 12 mmol/L (10-20); BUN (Urea Nitrogen) 16 mg/dL (9.8-20.1); Calc. Creatinine Clearance 123 mL/min (70-130); Carbon Dioxide 26 mmol/L (23-31); Chloride 105 mmol/L (98-107); Estimated GFR 85; Glucose 101 mg/dL (80-115); Potassium 4.6 mmol/L (3.5-5.1); Sodium 138 mmol/L (136-145)
[2023-12-22] MEDS: Mometasone 100 MCG/Formoterol 5 MCG 120 PUFF INHALER INH SCH (07:10)
[2023-12-22] MEDS: Nicotine 21 MG PATCH TD SCH (08:23)
[2023-12-22] MEDS: Ondansetron ODT 8 MG TAB SL PRN (08:23)
[2023-12-22] MEDS: Apixaban 5 MG TAB PO SCH ×2 (08:23→20:55)
[2023-12-22] MEDS: levETIRAcetam 500 mg/5 ml Oral Solution PO SCH ×2 (08:23→20:55)
[2023-12-22] MEDS: Aspirin 81 mg Enteric Coated Tablet PO SCH (08:24)
[2023-12-22] MEDS: Polyethylene Glycol 3350 17 GM Packet PO SCH (11:14)
[2023-12-22] MEDS: Lidocaine 4% Patch TD SCH (11:14)
[2023-12-22] MEDS: Atorvastatin Calcium 40 MG TAB PO SCH (20:55)
[2023-12-22] MEDS: Calcium Carbonate 500 MG ChewTAB PO PRN (21:01)
[2023-12-23] MEDS: Gabapentin 100 MG CAP PO SCH ×3 (03:53→20:09)
[2023-12-23 04:24] LABS: #Basophils 0.1 thou/uL (0.0-0.2); #Eosinphils 0.3 thou/uL (0.0-0.7); #Monocytes 0.5 thou/uL (0.11-0.59); #Neutrophils 3.9 thou/uL (1.40-6.50); %Basophils 0.7 % (0.0-1.0); %Eosinophils 4.7 % (0.0-10.0); %Lymphocytes 32.9 % (21.0-51.0); %Monocytes 6.6 % (0.0-10.0); %Neutrophils 54.8 % (42.0-75.0); Hematocrit 46.3 % (36.0-47.0); Hemoglobin 14.8 g/dL (12.0-16.0); Mean Corpuscular Hemoglobin 32.8 pg (27.0-31.0); Mean Corpuscular Volume 102.7 fl (78.0-98.0); Platelet Count 289 10x3/uL (130-400); RBC Distribution Width 13.2 % (11.5-14.5); Red Blood Cell (RBC) Count 4.51 mill/uL (4.20-5.40); White Blood Cell (WBC) Count 7.1 10x3/uL (4.8-10.8)
[2023-12-23 04:56] LABS: Anion Gap 12 mmol/L (10-20); BUN (Urea Nitrogen) 15 mg/dL (9.8-20.1); Calc. Creatinine Clearance 107 mL/min (70-130); Calcium 9.5 mg/dL (7.8-10.44); Carbon Dioxide 26 mmol/L (23-31); Cardiac Risk 2.7 (Less than 4.5); Chloride 104 mmol/L (98-107); Cholesterol 113 mg/dl (< 200 Desired); Estimated GFR 72; Glucose 129 mg/dL (80-115); HDL Cholesterol 42 mg/dL (>60 Neg Risk); LDL Cholesterol, Calculated 56 mg/dL; Sodium 137 mmol/L (136-145); Triglycerides 74 mg/dL (Less than 150)
[2023-12-23] MEDS: Mometasone 100 MCG/Formoterol 5 MCG 120 PUFF INHALER INH SCH (07:17)
[2023-12-23] MEDS: Polyethylene Glycol 3350 17 GM Packet PO SCH (08:33)
[2023-12-23] MEDS: Aspirin 81 mg Enteric Coated Tablet PO SCH (08:33)
[2023-12-23] MEDS: Acetaminophen 500 MG TAB PO PRN (08:34)
[2023-12-23] MEDS: Nicotine 21 MG PATCH TD SCH (08:34)
[2023-12-23] MEDS: levETIRAcetam 500 mg/5 ml Oral Solution PO SCH ×2 (08:34→20:08)
[2023-12-23] MEDS: Apixaban 5 MG TAB PO SCH ×2 (08:34→20:10)
[2023-12-23] MEDS: Lidocaine 4% Patch TD SCH (13:43)
[2023-12-23] MEDS: Atorvastatin Calcium 40 MG TAB PO SCH (20:09)
[2023-12-23] MEDS: traZODone HCl 50 MG TAB PO PRN (20:10)
[2023-12-23] MEDS: Transdermal Patch Removal TOP SCH (20:15)
[2023-12-23] MEDS: Calcium Carbonate 500 MG ChewTAB PO PRN (20:17)
[2023-12-24] MEDS: Gabapentin 100 MG CAP PO SCH ×3 (03:37→20:12)
[2023-12-24 07:25] LABS: Anion Gap 13 mmol/L (10-20); BUN (Urea Nitrogen) 16 mg/dL (9.8-20.1); Calc. Creatinine Clearance 134 mL/min (70-130); Calcium 8.9 mg/dL (7.8-10.44); Carbon Dioxide 22 mmol/L (23-31); Chloride 105 mmol/L (98-107); Estimated GFR 94; Glucose 119 mg/dL (80-115); Potassium 4.5 mmol/L (3.5-5.1); Sodium 135 mmol/L (136-145)
[2023-12-24] MEDS: Mometasone 100 MCG/Formoterol 5 MCG 120 PUFF INHALER INH SCH (07:39)
[2023-12-24] MEDS: Apixaban 5 MG TAB PO SCH ×2 (08:16→20:13)
[2023-12-24] MEDS: Aspirin 81 mg Enteric Coated Tablet PO SCH (08:16)
[2023-12-24] MEDS: Nicotine 21 MG PATCH TD SCH (08:17)
[2023-12-24] MEDS: Polyethylene Glycol 3350 17 GM Packet PO SCH (08:17)
[2023-12-24 08:27] LABS: #Eosinphils 0.2 thou/uL (0.0-0.7); #Monocytes 0.6 thou/uL (0.11-0.59); #Neutrophils 3.1 thou/uL (1.40-6.50); %Basophils 0.7 % (0.0-1.0); %Lymphocytes 33.9 % (21.0-51.0); %Monocytes 9.2 % (0.0-10.0); %Neutrophils 51.9 % (42.0-75.0); Hematocrit 46.7 % (36.0-47.0); Hemoglobin 15.1 g/dL (12.0-16.0); Mean Corpuscular HGB CONC 32.3 g/dL (32.0-36.0); Mean Corpuscular Volume 102.2 fl (78.0-98.0); Mean Platelet Volume 9.4 fL (7.4-10.4); Platelet Count 233 10x3/uL (130-400); RBC Distribution Width 13.2 % (11.5-14.5); Red Blood Cell (RBC) Count 4.57 mill/uL (4.20-5.40)
[2023-12-24] MEDS: levETIRAcetam 500 mg/5 ml Oral Solution PO SCH ×2 (10:22→20:10)
[2023-12-24] MEDS: Ondansetron ODT 8 MG TAB SL PRN (10:23)
[2023-12-24] MEDS: Acetaminophen 500 MG TAB PO PRN ×2 (10:23→20:10)
[2023-12-24] MEDS: Lidocaine 4% Patch TD SCH (11:51)
[2023-12-24] MEDS: Senokot S 8.6-50 MG TAB PO SCH (20:10)
[2023-12-24] MEDS: Calcium Carbonate 500 MG ChewTAB PO PRN (20:10)
[2023-12-24] MEDS: Atorvastatin Calcium 40 MG TAB PO SCH (20:11)
[2023-12-24] MEDS: traZODone HCl 50 MG TAB PO PRN (20:11)
[2023-12-24] MEDS: Transdermal Patch Removal TOP SCH (20:14)
[2023-12-25] MEDS: Gabapentin 100 MG CAP PO SCH (04:13)
[2023-12-25] MEDS: Mometasone 100 MCG/Formoterol 5 MCG 120 PUFF INHALER INH SCH (09:23)
[2023-12-25] MEDS: Polyethylene Glycol 3350 17 GM Packet PO SCH (09:45)
[2023-12-25] MEDS: Aspirin 81 mg Enteric Coated Tablet PO SCH (09:45)
[2023-12-25] MEDS: levETIRAcetam 500 mg/5 ml Oral Solution PO SCH (09:45)
[2023-12-25] MEDS: Senokot S 8.6-50 MG TAB PO SCH (09:46)
[2023-12-25] MEDS: Apixaban 5 MG TAB PO SCH (09:46)
[2023-12-25] MEDS: Nicotine 21 MG PATCH TD SCH (09:46)
[2023-12-25] MEDS: Lidocaine 4% Patch TD SCH (09:47)
[2023-12-25 11:35] VITALS: TEMP 97.4
[2023-12-25 12:22] VITALS: BP 138/89
== END 2023-12-25 15:40 | DRG 92 ==
LOC: ERS 15:50 → ERHOLD 18:48 → 2SE 23:17 → OBSVTOIN 12-19 14:23
PROVIDERS: ADMIT Family Medicine; ATTEND Family Medicine
PROC: 4A00X4Z Measurement of Central Nervous Electrical Activity, External Approach (ICD-10-PCS; principal; 2023-12-22)
DX: R29.90 Unspecified symptoms and signs involving the nervous system (principal); I50.32 Chronic diastolic (congestive) heart failure; N39.0 Urinary tract infection, site not specified; G70.00 Myasthenia gravis without (acute) exacerbation; H53.2 Diplopia; B19.20 Unspecified viral hepatitis C without hepatic coma; J44.9 Chronic obstructive pulmonary disease, unspecified; I11.0 Hypertensive heart disease with heart failure; F17.210 Nicotine dependence, cigarettes, uncomplicated; F10.90 Alcohol use, unspecified, uncomplicated; R73.03 Prediabetes; K21.9 Gastro-esophageal reflux disease without esophagitis; E03.8 Other specified hypothyroidism; F14.10 Cocaine abuse, uncomplicated; Z88.5 Allergy status to narcotic agent; Z91.040 Latex allergy status; Z79.82 Long term (current) use of aspirin; Z79.899 Other long term (current) drug therapy; Z90.49 Acquired absence of other specified parts of digestive tract; Z90.89 Acquired absence of other organs; Z90.710 Acquired absence of both cervix and uterus
CPT/HCPCS: 0042T; 36415; 36416; 70450; 70496; 70498; 71045; 80048; 80053; 80061; 80306; 81001; 83036; 83880; 84439; 84443; 84484; 85025; 87077; 87086; 87186; 93005; 93306; 95711; 95819; J0696; J3490; Q0162; Q9967

== ENCOUNTER 2024-01-09 10:36 | Inpatient (IN) | payer OTHER ==
[2024-01-09] MEDS ORDERED: methylPREDNISolone Sod Succ/PF 125 MG/2 ML VIAL ONE (11:16)
[2024-01-09 11:28] LABS: Bacteria/HPF 1+ HPF (None Seen); Bilirubin Negative (Negative); Blood, Urine Negative (Negative); CAUTI Indications for Culture Dysuria,urgency,freq; Clarity Clear (Clear); Glucose, Urine (Dipstick) Normal (Negative); Ketone, Urine Negative (Negative); Leukocyte 250 Leu/uL (Negative); Nitrite Negative (Negative); Protein, Urine (Dipstick) Negative (Neg-Trace); RBC/HPF 0-3 HPF (0-3); Specific Gravity, Urine 1.014 (1.002-1.036); Squamous Epithelial 0-3 HPF (0-3); Urobilinogen Normal mg/dL (Less than 2)
[2024-01-09 11:29] LABS: Urine Culture Reflex No No
[2024-01-09] MEDS ORDERED: Ipratropium/Albuterol 3 ML NEB ONE (11:32)
[2024-01-09 11:40] LABS: #Eosinphils 0.2 thou/uL (0.0-0.7); #Monocytes 0.6 thou/uL (0.11-0.59); #Neutrophils 3.8 thou/uL (1.40-6.50); %Basophils 0.6 % (0.0-1.0); %Eosinophils 3.1 % (0.0-10.0); %Lymphocytes 24.8 % (21.0-51.0); %Monocytes 9.1 % (0.0-10.0); %Neutrophils 61.9 % (42.0-75.0); Hematocrit 44.6 % (36.0-47.0); Hemoglobin 14.6 g/dL (12.0-16.0); Mean Corpuscular HGB CONC 32.7 g/dL (32.0-36.0); Mean Corpuscular Hemoglobin 33.6 pg (27.0-31.0); Mean Corpuscular Volume 102.8 fl (78.0-98.0); Mean Platelet Volume 8.5 fL (7.4-10.4); Platelet Count 278 10x3/uL (130-400); RBC Distribution Width 13.8 % (11.5-14.5); Red Blood Cell (RBC) Count 4.34 mill/uL (4.20-5.40); White Blood Cell (WBC) Count 6.2 10x3/uL (4.8-10.8)
[2024-01-09 12:03] LABS: ALT (SGPT) 16 U/L (8-55); AST (SGOT) 16 U/L (5-34); Albumin 3.6 g/dL (3.4-4.8); Alkaline Phosphatase 76 U/L (40-110); Anion Gap 8 mmol/L (10-20); BUN (Urea Nitrogen) 14 mg/dL (9.8-20.1); Bilirubin, Total 0.6 mg/dL (0.2-1.2); Calc. Creatinine Clearance 0 mL/min (70-130); Calcium 9.2 mg/dL (7.8-10.44); Carbon Dioxide 30 mmol/L (23-31); Chloride 105 mmol/L (98-107); Estimated GFR 75; Globulin 3.5 g/dL (2.4-3.5); Glucose 82 mg/dL (80-115); Lipase 46 U/L (8-78); Potassium 4.6 mmol/L (3.5-5.1); Protein, Total 7.1 g/dL (5.8-8.1); Sodium 138 mmol/L (136-145)
[2024-01-09 12:05] LABS: Troponin I Less than 0.010 ng/mL (< 0.028)
[2024-01-09 12:08] LABS: INR-International Normal Ratio 1.1; PTT 28.6 sec (22.9-36.1); Prothrombin Time 13.7 sec (12.0-14.7)
[2024-01-09] MEDS ORDERED: Iopamidol-370 76% 500 ML MDV (1 ML CHARGE) ONE (15:24)
[2024-01-09] MEDS ORDERED: cefTRIAXone (ROCEPHIN) 1 GM VIAL ONE (15:27)
[2024-01-09] MEDS ORDERED: Sodium Chloride 0.9% 100 ML ONE (15:28)
[2024-01-09] MEDS ORDERED: Ondansetron ODT 4 MG TAB PO PRN (16:19)
[2024-01-09] MEDS ORDERED: Albuterol 200 PUFF (6.7GM INHALER) INH PRN (16:24)
[2024-01-09] MEDS ORDERED: Benzonatate 100 MG CAP PO PRN (16:24)
[2024-01-09 16:50] LABS: Amphetamine Not Detected (NotDetected); Barbiturates Screen Not Detected (NotDetected); Benzodiazepine Screen Not Detected (NotDetected); Cocaine Metabolite Screen Detected (NotDetected); Methadone Not Detected (NotDetected); Methamphetamine Not Detected (NotDetected); Opiate Screen Not Detected (NotDetected); Oxycodone Screen Not Detected (NotDetected); Phencyclidine (PCP) Not Detected (NotDetected); THC/Cannabinoid Screen Not Detected (NotDetected); Tricyclic Screen Not Detected (NotDetected)
[2024-01-09] MEDS: Senokot S 8.6-50 MG TAB PO SCH (20:53)
[2024-01-09] MEDS: Atorvastatin Calcium 40 MG TAB PO SCH (20:53)
[2024-01-09] MEDS: Gabapentin 100 MG CAP PO SCH (20:53)
[2024-01-09] MEDS: levETIRAcetam 500 mg/5 ml Oral Solution PO SCH (20:53)
[2024-01-09] MEDS: Apixaban 5 MG TAB PO SCH (20:53)
[2024-01-09] MEDS: Nicotine 21 MG PATCH TD SCH (20:54)
[2024-01-09 20:58] VITALS: BMI 36.2
[2024-01-10 04:22] LABS: #Monocytes 0.7 thou/uL (0.11-0.59); #Neutrophils 6.2 thou/uL (1.40-6.50); %Basophils 0.1 % (0.0-1.0); %Eosinophils 0.1 % (0.0-10.0); %Lymphocytes 17.4 % (21.0-51.0); %Monocytes 8.1 % (0.0-10.0); %Neutrophils 73.9 % (42.0-75.0); Hematocrit 43.1 % (36.0-47.0); Hemoglobin 14.1 g/dL (12.0-16.0); Mean Corpuscular HGB CONC 32.7 g/dL (32.0-36.0); Mean Corpuscular Hemoglobin 33.4 pg (27.0-31.0); Mean Corpuscular Volume 102.1 fl (78.0-98.0); Mean Platelet Volume 8.9 fL (7.4-10.4); Platelet Count 280 10x3/uL (130-400); RBC Distribution Width 13.8 % (11.5-14.5); Red Blood Cell (RBC) Count 4.22 mill/uL (4.20-5.40); White Blood Cell (WBC) Count 8.4 10x3/uL (4.8-10.8)
[2024-01-10 04:49] LABS: Anion Gap 9 mmol/L (10-20); BUN (Urea Nitrogen) 15 mg/dL (9.8-20.1); Calc. Creatinine Clearance 116 mL/min (70-130); Calcium 9.3 mg/dL (7.8-10.44); Carbon Dioxide 25 mmol/L (23-31); Chloride 110 mmol/L (98-107); Estimated GFR 81; Glucose 124 mg/dL (80-115); Potassium 3.8 mmol/L (3.5-5.1); Sodium 140 mmol/L (136-145)
[2024-01-10] MEDS: Mometasone 100 MCG/Formoterol 5 MCG 120 PUFF INHALER INH SCH (07:38)
[2024-01-10] MEDS: Aspirin 81 mg Enteric Coated Tablet PO SCH (09:31)
[2024-01-10] MEDS: Acetaminophen 325 MG TAB PO PRN (09:35)
[2024-01-10] MEDS: Ipratropium/Albuterol 3 ML NEB NEB PRN (10:37)
[2024-01-10] MEDS: diphenhydrAMINE 12.5 MG/5 ML UDCUP PO SCH (15:03)
[2024-01-10] MEDS: Gabapentin 100 MG CAP PO SCH (15:05)
[2024-01-10] MEDS: cefTRIAXone\\ROCEPHIN 1 GM in Sodium Chloride 0.9% 100 ML IVPB SCH (21:10)
[2024-01-11 06:11] LABS: #Eosinphils 0.2 thou/uL (0.0-0.7); #Monocytes 0.4 thou/uL (0.11-0.59); #Neutrophils 2.6 thou/uL (1.40-6.50); %Basophils 0.5 % (0.0-1.0); %Eosinophils 3.3 % (0.0-10.0); %Lymphocytes 44.2 % (21.0-51.0); %Neutrophils 44.5 % (42.0-75.0); Hemoglobin 13.8 g/dL (12.0-16.0); Mean Corpuscular HGB CONC 32.1 g/dL (32.0-36.0); Mean Corpuscular Hemoglobin 33.2 pg (27.0-31.0); Mean Corpuscular Volume 103.4 fl (78.0-98.0); Mean Platelet Volume 8.9 fL (7.4-10.4); Platelet Count 264 10x3/uL (130-400); RBC Distribution Width 14.1 % (11.5-14.5); Red Blood Cell (RBC) Count 4.16 mill/uL (4.20-5.40); White Blood Cell (WBC) Count 5.8 10x3/uL (4.8-10.8)
[2024-01-11 06:26] LABS: Anion Gap 9 mmol/L (10-20); BUN (Urea Nitrogen) 18 mg/dL (9.8-20.1); Calc. Creatinine Clearance 116 mL/min (70-130); Calcium 8.8 mg/dL (7.8-10.44); Carbon Dioxide 28 mmol/L (23-31); Chloride 109 mmol/L (98-107); Estimated GFR 81; Glucose 119 mg/dL (80-115); Potassium 4.3 mmol/L (3.5-5.1); Sodium 142 mmol/L (136-145)
[2024-01-11] MEDS: Hydrochlorothiazide 25 MG TAB PO SCH (08:31)
[2024-01-11] MEDS: Ipratropium/Albuterol 3 ML NEB NEB SCH (10:49)
[2024-01-11] MEDS: Loratadine 10 MG TAB PO PRN (12:06)
[2024-01-11] MEDS ORDERED: Ipratropium/Albuterol 3 ML NEB NEB PRN (15:21)
[2024-01-12 06:37] LABS: #Eosinphils 0.3 thou/uL (0.0-0.7); #Monocytes 0.5 thou/uL (0.11-0.59); #Neutrophils 3.2 thou/uL (1.40-6.50); %Basophils 0.6 % (0.0-1.0); %Eosinophils 4.2 % (0.0-10.0); %Lymphocytes 34.4 % (21.0-51.0); %Monocytes 8.6 % (0.0-10.0); %Neutrophils 51.7 % (42.0-75.0); Hematocrit 41.7 % (36.0-47.0); Hemoglobin 13.5 g/dL (12.0-16.0); Mean Corpuscular HGB CONC 32.4 g/dL (32.0-36.0); Mean Corpuscular Hemoglobin 33.6 pg (27.0-31.0); Mean Corpuscular Volume 103.7 fl (78.0-98.0); Mean Platelet Volume 9.1 fL (7.4-10.4); Platelet Count 261 10x3/uL (130-400); RBC Distribution Width 14.1 % (11.5-14.5); Red Blood Cell (RBC) Count 4.02 mill/uL (4.20-5.40); White Blood Cell (WBC) Count 6.2 10x3/uL (4.8-10.8)
[2024-01-12 07:04] LABS: Anion Gap 9 mmol/L (10-20); BUN (Urea Nitrogen) 21 mg/dL (9.8-20.1); Calc. Creatinine Clearance 115 mL/min (70-130); Calcium 8.7 mg/dL (7.8-10.44); Carbon Dioxide 24 mmol/L (23-31); Chloride 108 mmol/L (98-107); Estimated GFR 80; Glucose 131 mg/dL (80-115); Potassium 4.3 mmol/L (3.5-5.1); Sodium 137 mmol/L (136-145)
[2024-01-12] MEDS: FLU VACC QS2023-24(6MOS UP)/PF 60 MCG/0.5 ML SYRINGE IM ONE (14:42)
[2024-01-12] MEDS: traZODone HCl 50 MG TAB PO PRN (21:11)
[2024-01-13 06:32] LABS: #Eosinphils 0.3 thou/uL (0.0-0.7); #Monocytes 0.5 thou/uL (0.11-0.59); %Basophils 0.5 % (0.0-1.0); %Lymphocytes 31.4 % (21.0-51.0); %Monocytes 8.7 % (0.0-10.0); %Neutrophils 54.2 % (42.0-75.0); Hematocrit 41.2 % (36.0-47.0); Hemoglobin 13.3 g/dL (12.0-16.0); Mean Corpuscular HGB CONC 32.3 g/dL (32.0-36.0); Mean Corpuscular Hemoglobin 33.4 pg (27.0-31.0); Mean Corpuscular Volume 103.5 fl (78.0-98.0); Mean Platelet Volume 8.9 fL (7.4-10.4); Platelet Count 275 10x3/uL (130-400); RBC Distribution Width 13.9 % (11.5-14.5); Red Blood Cell (RBC) Count 3.98 mill/uL (4.20-5.40); White Blood Cell (WBC) Count 5.6 10x3/uL (4.8-10.8)
[2024-01-13 06:58] LABS: Anion Gap 8 mmol/L (10-20); BUN (Urea Nitrogen) 22 mg/dL (9.8-20.1); Calc. Creatinine Clearance 127 mL/min (70-130); Carbon Dioxide 28 mmol/L (23-31); Chloride 107 mmol/L (98-107); Estimated GFR 91; Glucose 112 mg/dL (80-115); Sodium 139 mmol/L (136-145)
[2024-01-14 06:58] LABS: #Eosinphils 0.2 thou/uL (0.0-0.7); #Monocytes 0.5 thou/uL (0.11-0.59); #Neutrophils 2.6 thou/uL (1.40-6.50); %Basophils 0.4 % (0.0-1.0); %Eosinophils 4.4 % (0.0-10.0); %Lymphocytes 30.9 % (21.0-51.0); %Monocytes 9.6 % (0.0-10.0); %Neutrophils 54.3 % (42.0-75.0); Hematocrit 40.3 % (36.0-47.0); Hemoglobin 13.1 g/dL (12.0-16.0); Mean Corpuscular HGB CONC 32.5 g/dL (32.0-36.0); Mean Corpuscular Hemoglobin 33.7 pg (27.0-31.0); Mean Corpuscular Volume 103.6 fl (78.0-98.0); Mean Platelet Volume 8.9 fL (7.4-10.4); Platelet Count 255 10x3/uL (130-400); RBC Distribution Width 13.9 % (11.5-14.5); Red Blood Cell (RBC) Count 3.89 mill/uL (4.20-5.40); White Blood Cell (WBC) Count 4.8 10x3/uL (4.8-10.8)
[2024-01-14 07:26] LABS: Anion Gap 10 mmol/L (10-20); BUN (Urea Nitrogen) 22 mg/dL (9.8-20.1); Calc. Creatinine Clearance 113 mL/min (70-130); Calcium 8.6 mg/dL (7.8-10.44); Carbon Dioxide 26 mmol/L (23-31); Chloride 107 mmol/L (98-107); Estimated GFR 79; Glucose 112 mg/dL (80-115); Potassium 4.1 mmol/L (3.5-5.1); Sodium 139 mmol/L (136-145)
[2024-01-14] MEDS: Lactated Ringer's 1,000 ML IV SCH (08:05)
[2024-01-15 05:56] LABS: #Eosinphils 0.2 thou/uL (0.0-0.7); #Monocytes 0.5 thou/uL (0.11-0.59); #Neutrophils 2.9 thou/uL (1.40-6.50); %Basophils 0.6 % (0.0-1.0); %Eosinophils 3.9 % (0.0-10.0); %Lymphocytes 29.4 % (21.0-51.0); %Monocytes 9.3 % (0.0-10.0); %Neutrophils 56.6 % (42.0-75.0); Hematocrit 41.6 % (36.0-47.0); Hemoglobin 13.4 g/dL (12.0-16.0); Mean Corpuscular HGB CONC 32.2 g/dL (32.0-36.0); Mean Corpuscular Hemoglobin 33.4 pg (27.0-31.0); Mean Corpuscular Volume 103.7 fl (78.0-98.0); Mean Platelet Volume 9.7 fL (7.4-10.4); Platelet Count 221 10x3/uL (130-400); RBC Distribution Width 13.6 % (11.5-14.5); Red Blood Cell (RBC) Count 4.01 mill/uL (4.20-5.40); White Blood Cell (WBC) Count 5.1 10x3/uL (4.8-10.8)
[2024-01-15 06:30] LABS: Anion Gap 9 mmol/L (10-20); BUN (Urea Nitrogen) 21 mg/dL (9.8-20.1); Calc. Creatinine Clearance 112 mL/min (70-130); Calcium 8.9 mg/dL (7.8-10.44); Carbon Dioxide 29 mmol/L (23-31); Chloride 106 mmol/L (98-107); Estimated GFR 78; Glucose 129 mg/dL (80-115); Sodium 140 mmol/L (136-145)
[2024-01-15] MEDS ORDERED: Polyethylene Glycol 3350 17 GM Packet PO SCH (09:00)
[2024-01-15 16:20] VITALS: BP 143/65; TEMP 97.5
== END 2024-01-15 17:35 | disposition left against medical advice (07) | DRG 92 ==
LOC: ERS 10:36 → 2SE 15:21 → OBSVTOIN 01-11 14:33
PROVIDERS: ADMIT Student in an Organized Health Care Education/Training Program; ATTEND Student in an Organized Health Care Education/Training Program
PROC: 4A00X4Z Measurement of Central Nervous Electrical Activity, External Approach (ICD-10-PCS; principal; 2024-01-12)
DX: G83.84 Todd's paralysis (postepileptic) (principal); G45.9 Transient cerebral ischemic attack, unspecified; N39.0 Urinary tract infection, site not specified; I13.0 Hypertensive heart and chronic kidney disease with heart failure and stage 1 through stage 4 chronic kidney disease, or unspecified chronic kidney disease; F14.10 Cocaine abuse, uncomplicated; J44.9 Chronic obstructive pulmonary disease, unspecified; Z95.0 Presence of cardiac pacemaker; I50.9 Heart failure, unspecified; K21.9 Gastro-esophageal reflux disease without esophagitis; R30.0 Dysuria; F41.9 Anxiety disorder, unspecified; F32.A Depression, unspecified; F17.210 Nicotine dependence, cigarettes, uncomplicated; N18.9 Chronic kidney disease, unspecified; G70.00 Myasthenia gravis without (acute) exacerbation; Z91.040 Latex allergy status; Z88.8 Allergy status to other drugs, medicaments and biological substances; Z79.01 Long term (current) use of anticoagulants; Z79.899 Other long term (current) drug therapy; Z90.49 Acquired absence of other specified parts of digestive tract; Z90.710 Acquired absence of both cervix and uterus
CPT/HCPCS: 36415; 70450; 70496; 70498; 71045; 71260; 72125; 74177; 80048; 80053; 80306; 81001; 83690; 84484; 85025; 85610; 85730; 87077; 87086; 87186; 90471; 90686; 93005; 94640; 95711; 95819; 96365; 96375; G0008; G0378; J0696; J0780; J2930; J3490; J7120; J7620; Q0163; Q9967

== ENCOUNTER 2024-05-26 09:45 | Emergency (ER) | payer OTHER ==
[2024-05-26 10:23] LABS: #Basophils 0.03 10x3/uL (0.0-0.2); %Basophils 0.6 % (0.0-1.0); %Eosinophils 4.6 % (0.0-10.0); %Lymphocytes 32.5 % (21.0-51.0); %Monocytes 5.9 % (0.0-10.0); %Neutrophils 56.2 % (42.0-75.0); Hemoglobin 14.6 g/dL (12.0-16.0); Mean Corpuscular HGB CONC 32.4 g/dL (32.0-36.0); Mean Corpuscular Hemoglobin 32.2 pg (27.0-31.0); Mean Corpuscular Volume 99.3 fL (78.0-98.0); Mean Platelet Volume 8.9 fL (7.4-10.4); Platelet Count 297 10x3/uL (130-400); RBC Distribution Width 13.2 % (11.5-14.5); Red Blood Cell (RBC) Count 4.53 mill/uL (4.20-5.40)
[2024-05-26 10:36] LABS: INR-International Normal Ratio 0.9; PTT 29.3 sec (22.9-36.1); Prothrombin Time 12.6 sec (12.0-14.7)
[2024-05-26 10:51] LABS: ALT (SGPT) 16 U/L (8-55); AST (SGOT) 18 U/L (5-34); Albumin 3.4 g/dL (3.4-4.8); Alkaline Phosphatase 86 U/L (40-110); Anion Gap 13 mmol/L (10-20); BUN (Urea Nitrogen) 15 mg/dL (9.8-20.1); Bilirubin, Total 0.2 mg/dL (0.2-1.2); CK (CPK) 118 U/L (29-168); Calc. Creatinine Clearance 0 mL/min (70-130); Calcium 9.3 mg/dL (7.8-10.44); Carbon Dioxide 23 mmol/L (23-31); Chloride 111 mmol/L (98-107); Estimated GFR 77; Globulin 3.7 g/dL (2.4-3.5); Glucose 92 mg/dL (80-115); Lipase 37 U/L (8-78); Magnesium 1.9 mg/dL (1.6-2.6); Potassium 3.7 mmol/L (3.5-5.1); Protein, Total 7.1 g/dL (5.8-8.1); Sodium 143 mmol/L (136-145)
[2024-05-26 10:52] LABS: Acetaminophen Less than 10 mcg/mL (10.0-30.0); Alcohol Less than 10.0 mg/dL (Less than 10); Salicylate Less than 8.0 mg/dL (15.0-30.0)
[2024-05-26] MEDS ORDERED: Ketorolac Tromethamine 30 MG (1 mL) VIAL ONE (11:36)
[2024-05-26 13:59] LABS: Amphetamine Not Detected (NotDetected); Barbiturates Screen Not Detected (NotDetected); Benzodiazepine Screen Not Detected (NotDetected); Cocaine Metabolite Screen Detected (NotDetected); Methadone Not Detected (NotDetected); Methamphetamine Not Detected (NotDetected); Opiate Screen Not Detected (NotDetected); Oxycodone Screen Not Detected (NotDetected); Phencyclidine (PCP) Not Detected (NotDetected); THC/Cannabinoid Screen Not Detected (NotDetected); Tricyclic Screen Not Detected (NotDetected)
[2024-05-26 14:02] LABS: Bilirubin Negative (Negative); Blood, Urine Negative (Negative); CAUTI Indications for Culture Pelvic or flank pain; Clarity Clear (Clear); Glucose, Urine (Dipstick) Normal (Negative); Ketone, Urine Negative (Negative); Leukocyte Negative Leu/uL (Negative); Nitrite Negative (Negative); Protein, Urine (Dipstick) Negative (Neg-Trace); RBC/HPF 0-3 HPF (0-3); Squamous Epithelial 0-3 HPF (0-3); Urobilinogen Normal mg/dL (Less than 2); pH, Urine 6.5 (5.0-9.0)
[2024-05-26 14:04] LABS: Bacteria/HPF 1+ HPF (None Seen); Specific Gravity, Urine 1.027 (1.002-1.036); Urine Culture Reflex No No
== END 2024-05-26 14:43 | disposition home or self-care (01) ==
LOC: ERS 09:45
DX: R53.1 Weakness (principal); T40.5X5A Adverse effect of cocaine, initial encounter; N39.0 Urinary tract infection, site not specified; F17.210 Nicotine dependence, cigarettes, uncomplicated; I11.0 Hypertensive heart disease with heart failure; I50.9 Heart failure, unspecified; J44.9 Chronic obstructive pulmonary disease, unspecified
CPT/HCPCS: 36416; 70450; 70496; 70498; 71045; 80053; 80306; 80307; 81001; 82550; 83690; 83735; 83880; 84443; 84484; 85025; 85610; 85730; 93005; 94760; 96374; J1885

== ENCOUNTER 2024-10-10 18:00 | Emergency (ER) | payer OTHER | END 2024-10-10 19:39 | disposition home or self-care (01) | LOC: ERS 18:00 | DX: K04.7 Periapical abscess without sinus (principal); I11.0 Hypertensive heart disease with heart failure; I50.9 Heart failure, unspecified; J44.9 Chronic obstructive pulmonary disease, unspecified; F17.290 Nicotine dependence, other tobacco product, uncomplicated | CPT/HCPCS: 99282 ==

== ENCOUNTER 2025-07-25 11:46 | Emergency (ER) | payer MEDICAID | END 2025-07-25 13:14 | disposition left against medical advice (07) | LOC: ERS 11:46 | DX: Z53.21 Procedure and treatment not carried out due to patient leaving prior to being seen by health care provider (principal) ==

== ENCOUNTER 2025-08-28 15:13 | Emergency (ER) | payer MEDICAID ==
[2025-08-28] MEDS ORDERED: Acetaminophen 325 MG TAB ONE (18:32)
[2025-08-28 19:27] LABS: #Basophils 0.04 10x3/uL (0.0-0.2); #Eosinophils 0.23 10x3/uL (0.0-0.7); #Monocytes 0.45 10x3/uL (0.11-0.59); #Neutrophils 2.89 10x3/uL (1.40-6.50); %Basophils 0.7 % (0.0-1.0); %Eosinophils 4.0 % (0.0-10.0); %Lymphocytes 37.3 % (21.0-51.0); %Monocytes 7.8 % (0.0-10.0); %Neutrophils 50.0 % (42.0-75.0); Hematocrit 44.8 % (36.0-47.0); Hemoglobin 14.5 g/dL (12.0-16.0); Mean Corpuscular Hemoglobin 32.1 pg (27.0-31.0); Mean Corpuscular Volume 99.1 fL (78.0-98.0); Platelet Count 273 10x3/uL (130-400); Red Blood Cell (RBC) Count 4.52 mill/uL (4.20-5.40); White Blood Cell (WBC) Count 5.77 10x3/uL (4.8-10.8)
[2025-08-28 19:43] LABS: ALT (SGPT) 19 U/L (Less than 34); AST (SGOT) 24 U/L (11-34); Albumin 3.5 g/dL (3.1-4.5); Alkaline Phosphatase 92 U/L (40-110); Anion Gap 13 mmol/L (10-20); BUN (Urea Nitrogen) 11 mg/dL (9.8-20.1); Bilirubin, Total 0.2 mg/dL (0.3-1.2); CK (CPK) 65 U/L (29-168); Calc. Creatinine Clearance 0 mL/min (70-130); Calcium 9.3 mg/dL (7.8-10.44); Carbon Dioxide 25 mmol/L (23-31); Chloride 108 mmol/L (98-107); Globulin 3.6 g/dL (2.4-3.5); Glucose 87 mg/dL (80-115); Magnesium 2.2 mg/dL (1.6-2.6); Potassium 4.1 mmol/L (3.5-5.1); Sodium 142 mmol/L (136-145)
== END 2025-08-28 20:27 | disposition home or self-care (01) ==
LOC: ERS 15:13
DX: K08.89 Other specified disorders of teeth and supporting structures (principal); R20.2 Paresthesia of skin; R29.701 NIHSS score 1; I50.9 Heart failure, unspecified; J44.9 Chronic obstructive pulmonary disease, unspecified; F17.210 Nicotine dependence, cigarettes, uncomplicated; Z95.0 Presence of cardiac pacemaker
CPT/HCPCS: 36415; 71045; 80053; 82550; 83735; 84484; 85025; 93005

== ENCOUNTER 2025-10-02 14:30 | Observation (INO) | payer MEDICAID ==
[2025-10-02 15:24] LABS: #Basophils Less than 0.03 10x3/uL (0.0-0.2); #Eosinophils 0.12 10x3/uL (0.0-0.7); #Monocytes 0.43 10x3/uL (0.11-0.59); #Neutrophils 3.27 10x3/uL (1.40-6.50); %Basophils 0.4 % (0.0-1.0); %Eosinophils 2.2 % (0.0-10.0); %Lymphocytes 28.0 % (21.0-51.0); %Monocytes 8.0 % (0.0-10.0); %Neutrophils 61.2 % (42.0-75.0); Hematocrit 45.5 % (36.0-47.0); Hemoglobin 14.5 g/dL (12.0-16.0); Mean Corpuscular Hemoglobin 32.2 pg (27.0-31.0); Mean Corpuscular Volume 101.1 fL (78.0-98.0); Platelet Count 278 10x3/uL (130-400); Red Blood Cell (RBC) Count 4.50 mill/uL (4.20-5.40); White Blood Cell (WBC) Count 5.35 10x3/uL (4.8-10.8)
[2025-10-02 15:41] LABS: ALT (SGPT) 8 U/L (Less than 34); AST (SGOT) 16 U/L (11-34); Albumin 3.6 g/dL (3.1-4.5); Alkaline Phosphatase 85 U/L (40-110); Anion Gap 12 mmol/L (10-20); BUN (Urea Nitrogen) 17 mg/dL (9.8-20.1); Bilirubin, Total 0.3 mg/dL (0.3-1.2); Calc. Creatinine Clearance 0 mL/min (70-130); Calcium 9.3 mg/dL (7.8-10.44); Carbon Dioxide 27 mmol/L (23-31); Chloride 108 mmol/L (98-107); Globulin 3.4 g/dL (2.4-3.5); Glucose 72 mg/dL (80-115); Lipase 28 U/L (8-78); Magnesium 1.9 mg/dL (1.6-2.6); Potassium 4.1 mmol/L (3.5-5.1); Sodium 143 mmol/L (136-145)
[2025-10-02] MEDS ORDERED: Senokot S 8.6-50 MG TAB PO PRN (19:55)
[2025-10-02] MEDS ORDERED: Calcium Carbonate 500 MG ChewTAB PO PRN (19:55)
[2025-10-02] MEDS ORDERED: Ondansetron PF 4 MG/2 ML Vial IVP PRN (19:55)
[2025-10-02] MEDS ORDERED: Acetaminophen 325 MG TAB PO PRN (19:55)
[2025-10-02] MEDS ORDERED: hydrALAZINE 20 MG/ML VIAL SLOW IVP PRN (20:05)
[2025-10-02 21:04] VITALS: BMI 36.3
[2025-10-02] MEDS: Gabapentin 100 MG CAP PO SCH (21:54)
[2025-10-02] MEDS: levETIRAcetam 500 MG TAB PO SCH (21:54)
[2025-10-02] MEDS: Apixaban 5 MG TAB PO SCH (21:55)
[2025-10-03 04:01] LABS: #Basophils 0.03 10x3/uL (0.0-0.2); #Eosinophils 0.24 10x3/uL (0.0-0.7); #Monocytes 0.64 10x3/uL (0.11-0.59); #Neutrophils 2.93 10x3/uL (1.40-6.50); %Basophils 0.5 % (0.0-1.0); %Eosinophils 4.1 % (0.0-10.0); %Lymphocytes 33.7 % (21.0-51.0); %Monocytes 11.0 % (0.0-10.0); %Neutrophils 50.5 % (42.0-75.0); Hematocrit 41.9 % (36.0-47.0); Hemoglobin 13.4 g/dL (12.0-16.0); Mean Corpuscular Hemoglobin 32.4 pg (27.0-31.0); Mean Corpuscular Volume 101.5 fL (78.0-98.0); Platelet Count 267 10x3/uL (130-400); Red Blood Cell (RBC) Count 4.13 mill/uL (4.20-5.40); White Blood Cell (WBC) Count 5.81 10x3/uL (4.8-10.8)
[2025-10-03 04:23] LABS: ALT (SGPT) 9 U/L (Less than 34); AST (SGOT) 13 U/L (11-34); Albumin 3.0 g/dL (3.1-4.5); Alkaline Phosphatase 75 U/L (40-110); Anion Gap 9 mmol/L (10-20); BUN (Urea Nitrogen) 19 mg/dL (9.8-20.1); Bilirubin, Total 0.2 mg/dL (0.3-1.2); Calc. Creatinine Clearance 147 mL/min (70-130); Calcium 8.7 mg/dL (7.8-10.44); Carbon Dioxide 25 mmol/L (23-31); Cardiac Risk 3.3 (Less than 4.5); Chloride 109 mmol/L (98-107); Cholesterol 105 mg/dl (< 200 Desired); Globulin 3.0 g/dL (2.4-3.5); Glucose 111 mg/dL (80-115); HDL Cholesterol 32 mg/dL (>60 Neg Risk); LDL Cholesterol, Calculated 62 mg/dL; Potassium 4.3 mmol/L (3.5-5.1); Sodium 139 mmol/L (136-145); Triglycerides 56 mg/dL (Less than 150)
[2025-10-03] MEDS: Mometasone 100 MCG/Formoterol 5 MCG 120 PUFF INHALER INH SCH (07:30)
[2025-10-03] MEDS: Aspirin 81 mg Enteric Coated Tablet PO SCH (08:47)
[2025-10-03] MEDS: Gabapentin 300 MG CAP PO SCH (15:36)
[2025-10-03 18:06] LABS: Cocaine Metabolite Screen PRELIM POSITIVE (Negative); THC/Cannabinoid Screen Negative (Negative); Tricyclic Screen Negative (Negative)
[2025-10-03 18:23] VITALS: BP 138/77; TEMP 97.8
[2025-10-03] MEDS ORDERED: Mirtazapine 15 MG TAB PO SCH (21:00)
[2025-10-05] MEDS ORDERED: PNEUMOC 20-VAL CONJ-DIP CRM/PF 0.5 ML SYRINGE IM ONE (09:00)
== END 2025-10-03 18:29 | disposition home or self-care (01) ==
LOC: ERS 14:30 → SUATTDRO 14:30 → 2NO 19:27 → INTOOBSV 19:27
PROVIDERS: ADMIT Internal Medicine; ATTEND Hospitalist
DX: R53.1 Weakness (principal); R29.90 Unspecified symptoms and signs involving the nervous system; R20.0 Anesthesia of skin; F32.9 Major depressive disorder, single episode, unspecified; K21.9 Gastro-esophageal reflux disease without esophagitis; I10 Essential (primary) hypertension; E78.5 Hyperlipidemia, unspecified; J44.9 Chronic obstructive pulmonary disease, unspecified; G40.909 Epilepsy, unspecified, not intractable, without status epilepticus; Z88.5 Allergy status to narcotic agent; Z91.040 Latex allergy status; Z91.018 Allergy to other foods; Z79.82 Long term (current) use of aspirin; Z79.899 Other long term (current) drug therapy
CPT/HCPCS: 36415; 70450; 70553; 71045; 71275; 72125; 76014; 76376; 80053; 80061; 80306; 83036; 83690; 83735; 83880; 84443; 84484; 85025; 93005; 93306; 93880; G0378; J7030